=== PATIENT | female | born 1985 | race Caucasian/White ===

== ENCOUNTER 2023-11-01 07:34 | Outpatient (REF) | payer OTHER, SELFPAY ==
--- NOTE | ~2023-11-01 | MM_ITS ---
EXAMINATION: MM SCREENING DIGITAL BREAST TOMOSYNTHESIS, BILATERAL CLINICAL INFORMATION: Screening. Asymptomatic. COMPARISON: Mammography: This is a baseline mammogram. TECHNIQUE: Digital breast tomosynthesis is performed in both the craniocaudal and mediolateral oblique views along with computer-aided detection (CAD). Synthesized 2D images are generated from the tomosynthesis. FINDINGS: The breasts are heterogeneously dense, which may obscure small masses (ACR BI-RADS breast composition Category c). There are no significant masses, abnormal calcifications, or other abnormalities. MM/MM tomosynthesis screening BI IMPRESSION: No mammographic evidence of malignancy. ASSESSMENT: BI-RADS BI-RADS 1 - Negative RECOMMENDATION: Routine annual mammography screening. 1 year F/U This examination should not preclude the clinical evaluation of a suspicious palpable abnormality. This patient's information was entered into a reminder system with a target due date for their next mammogram.
== END 2023-11-01 07:35 | disposition home or self-care (01) ==
LOC: HO.MAMMO 07:34
PROVIDERS: PCP Obstetrics & Gynecology; Visit Provider Obstetrics & Gynecology
DX: Z12.31 Encounter for screening mammogram for malignant neoplasm of breast (principal)
CPT/HCPCS: 77063; 77067

== ENCOUNTER → 2023-11-01 07:45 | Outpatient (BNV) | payer OTHER, SELFPAY | PROVIDERS: PCP Obstetrics & Gynecology; Visit Provider Radiology Diagnostic Radiology | DX: Z12.31 Encounter for screening mammogram for malignant neoplasm of breast (principal) | CPT/HCPCS: 77063; 77067 ==

== ENCOUNTER 2023-12-04 07:01 | Outpatient (REF) | payer OTHER, SELFPAY ==
--- NOTE | ~2023-12-04 | XR_ITS ---
EXAMINATION: XR FOOT, RIGHT CLINICAL INFORMATION: Heel pain COMPARISON: None available. TECHNIQUE: AP, lateral, and oblique views of the right foot. FINDINGS: No fracture. Alignment is anatomic. Joint spaces are maintained. Plantar calcaneal spur. Tiny Achilles insertional enthesopathy. No erosions. No abnormal soft tissue calcification. XR/XR foot RT min 3V IMPRESSION: Calculus spurring. No radiographic evidence of acute osseous abnormality. Study is assigned for dictation on December 26, 2023
== END 2023-12-04 07:02 | disposition home or self-care (01) ==
LOC: HO.XRAY 07:01
PROVIDERS: Visit Provider Nurse Practitioner Family
DX: M79.671 Pain in right foot (principal)
CPT/HCPCS: 73630

== ENCOUNTER 2024-09-21 08:51 | Outpatient (AMB) | payer OTHER, SELFPAY ==
--- NOTE | 2024-09-21 08:57 | A.OFFVIS_ITS ---
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/ Tiffany/ palpitations (prev [facility]) Intake Note: New patient previous [facility] with ekg c/o palpitations on and off May-July was more often she has been having issue for years mostly at rest [employer] Se[employer] Manager Required: No Allergies erythromycin base [ERYTHROMYCIN BASE] Allergy (Unknown, Unverified 02/04/20 18:11) HIVES sulfamethoxazole [From BACTRIM] Adverse Reaction (Intermediate, Unverified 02/04/20 18:11) STOMACH UPSET trimethoprim [From BACTRIM] Adverse Reaction (Intermediate, Unverified 02/04/20 18:11) STOMACH UPSET Medication List - Last Reconciled 09/21/24 by Chivo Fink MD No Known Home Meds HPI Comments Details: Thank you for referring Darryl in cardiology consultation today for recent onset symptoms of palpitation. She is a pleasant 38 year old female with no significant past medical history except for syncope. She says syncope episode started about 15 years ago and would describe episode usually in the morning time when she would get up and do her routine in the morning and she will be standing she was suddenly feel not well and then feel like a black curtain carlosi javier and then she would pass out. A boyfriend would then noticed her to be very pale and cold. She was then be conscious right away and not have any symptoms. She had then at that time seen Cardiology at [facility] and no obvious diagnose was made but was told that she might have vasovagal syncope. She had an echocardiogram which was within normal limits. She had advise increase water and salt intake which she has been doing. Since that she has grown out of these episodes and she has not had any further syncopal episodes. More recently over the last few months she is having symptoms were happening frequently but over the last 3 weeks they have kind of subsided. She says the symptoms happening sometimes many times a week and then a week would pass without any symptoms. She will feel fluttering in his chest palpitations and then they would be sometimes continuous and she was feel lightheaded. One episode while shoveling snow she felt like she was going to pass out similar to vasovagal syncope but this past and she has not had any recurrent. She has been maintaining adequate hydration. She has gained some weight. However she says when she exercises she actually feels well and has no symptoms of palpitation lightheadedness or syncope when she was exercising. Denies any exertional chest pain or shortness of breath. Denies any recent new changes in her health. Denies any toim-dfo-lcpobky medications. Denies any recent increase in personal professional stress. Review of Systems Const Denies chills, Denies daytime sleepiness, Denies fatigue, Denies fever(s), Denies frequent falls, Denies poor appetite, Denies snoring, Denies stops breathing during sleep, Denies weakness, Denies weight gain and Denies weight loss Eyes Denies loss of vision ENT Denies dizziness and Denies hearing loss Card Reports chest pain, Denies claudication, Denies leg edema, Denies lightheadedness, Reports palpitations, Denies dyspnea, Denies dyspnea on exertion and Denies orthopnea Resp Denies cough, Denies excessive phlegm production, Denies dyspnea, Denies dyspnea on exertion, Denies snoring and Denies wheezing GI Denies abdominal pain, Denies hematochezia, Denies change in bowel habits, Denies nausea and Denies vomiting Denies urinary frequency and Denies dysuria Musc Denies arthralgias, Denies muscle weakness, Denies numbness and Denies other (frequent falls) Skin/Breast Denies nail changes and Denies rash Neuro Denies Abnormal speech present, Denies dizziness, Denies frequent falls, Denies loss of vision, Denies memory loss, Denies numbness and Denies weakness Psych Denies depression and Denies memory loss Endo Denies fatigue and Reports palpitations Martinez/Lymph Reports easy bruising and Reports other (anemia) Aller/Immun Denies wheezing Physical Exam Vital Signs: Last Vital Signs Pulse 87 09/21/24 09:18 BP 113/69 09/21/24 09:18 BMI result Body Mass Index 29.1 Const General: cooperative, comfortable, no acute distress, alert, awake, Physically active and well groomed Nutritional Appearance: overweight Orientation/consciousness: patient oriented x3 Limitations: no limitations HEENT Head: Yes normocephalic and Yes atraumatic Neck Neck: Yes trachea midline, Yes supple and Yes no JVD Resp Effort & Inspection: normal respiratory effort Auscultation: clear to auscultation bilaterally Cardio Jugular venous distension: no JVD Palpation: normal PMI Rate: regular rate Rhythm: regular rhythm Heart sounds: S1 normal heart sound present, S2 normal heart sound present, no click, no gallops, no murmurs and no rubs GI Auscultation: normal bowel sounds Skin General skin exam: no rashes or lesions noted Neuro General: patient oriented x3 and no focal motor deficits Speech: No Abnormal speech present Extrem General: Yes no clubbing, cyanosis or edema Psych Appearance: grossly normal Office Procedures EKG Details: EKG shows normal sinus rhythm normal EKG with normal axis and normal intervals 16092-Pjuljktejqcmhajtt, Complete Assessment & Plan Assessment & Plan (1) Palpitations: Code(s): R00.2 - Palpitations Category: Medical Plan: Patient with recent onset symptoms of palpitation which are most suggestive of extra systoles. Less likely that this represents SVT or short runs of atrial tachycardia uneven less likely that this is atrial fibrillation. However like to obtain a 30 day event monitor as her symptoms have become less frequent to assess for the symptoms as well as to assess for frequency. I would hold off on any pharmacotherapy at this point time. Avoidance of stimulants was discussed. Stress mitigation strategies were discussed. Will also obtain echocardiogram to assess for LV structure and function. (2) Syncope: Code(s): R55 - Syncope and collapse Category: Medical Plan: Prior history of syncope with recent episode of near-syncope while shoveling snow. Symptoms are suggestive of vasovagal syncope although this has not been ever confirmed. I will suggest a head-up tilt-table test to assess for etiology of syncope and/or also response with upright tilting that would guide therapy. This was discussed with her. Meanwhile I have advised her to continue maintain adequate hydration salt intake. Follow up in the clinic in 2 months time, sooner p.r.n.. Thank you for allowing me to partake in her care Coding Level of Care Code New Pt Level 4 (53594) Complex EM visit Add On G2211 Diagnoses Palpitations R00.2 Syncope R55 CPT Codes EKG - CPT: 27292-Eoqduimnmlspcqgni, Complete ([id number])
[2024-09-21 08:59] VITALS: BP 110/70; PULSE 78; BMI 29.1
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
--- OUTSIDE RECORDS SUMMARY | 2024-09-21 09:17 | XMS_ITS | Patient Health Record ---
Author Organization [facility] Address [address] [place] [address] Care Team Providers Care Saw Boss Name Role Phone VALERY MOREAU CNP Primary Care Provider TALISHA Mckenzie Unavailable [phone] Allergies Allergen (clinical drug ingredient) Drug/Non Drug Allergy documented on EMR Reaction Allergy Type Onset Date Status azithromycin Azithromycin hives Drug Allergy A ctive Results Component Value Reference Range Notes PDF Report Reviewed date:10/11/2023 08:51:57 AM Interpretation: Performing Lab:[facility], [address], [address], [place] Phone - [phone], [facility] Notes/Report: Clinical Information:CERVICAL, LMP: RANDOM BLEE DING WITH MIRENA IUD Source.............Cervix Dates / Results....2021 MIRENA, RANDOM BLEED ING Other..............IUD No. of containers..01 ThinPrep Vial 569700-Mls IGP No Culture 30 Plus Reviewed date:10/11/2023 08:50:45 AM Interpretation: Performing Lab:[facility], [address], [address], [place] Phone - [phone], Director [facility] Notes/Report: Clinical Information:CERVICAL, LMP: RANDOM BLEE DING WITH MIRENA IUD Source.............Cervix Dates / Results....2021 MIRENA, RANDOM BLEED ING Other..............IUD No. of containers..01 ThinPrep Vial DIAGNOSIS: NEGATIVE FOR IN TRAEPITHELIAL LESION OR MALIGNANCY. Specimen adequacy: Satisfactory for evaluation. Endocervical and/or squamous metaplastic cells (endocervical component) are present. Clinician provided ICD10: Z0 1.419 Performed by: John barrett, Immigration Specialist ([facility]) . . Note: The Pap smear is a screening test designed to aid in the detection of premalignant and malignant conditions of the uterine cervix. It is not a diagnostic procedure and should not be used as the sole means of detecting cervical cancer. Both false-positive and false-negative reports do occur. . Test Methodology: This liquid based ThinPrep(R) pap test was screened with the use of an image guided system. HPV Aptima Negative Negative This nucleic acid amplification test detects fourteen high-risk HPV types (16,18,31,33,35,39,45,51,52,56,58 ,59,66,68) without differentiation. HPV Genotype Reflex Criteria not met, HPV Genotype not performed. Reason For Referral No Information Medications Medication SIG (Take, Route, Frequency, Duration) [...] has it been since you last smoked? Grea ter than 10 years Problems Problem Type SNOMED Code ICD Code Onset Dates Problem Status W/U Status Risk Notes Problem COVID-19 ([id number]) COVID-19 (U07.1) Active confirmed Vital Signs Temperature 98.2 degrees Fahrenheit 06/12/2024 Blood pressure diastolic 64 mm Hg 06/12/2024 Height 64 in 06/12/2024 Blood pressure systolic 110 mm Hg 06/12/2024 Weight 166 lbs 06/12/2024 BMI 28.49 kg/m2 06/12/2024 Encounters Encounter Location Date [facility] [address] [place] [address] 10/07/2023 TALISHA OKEEFE Encounter for gynecological examination (general) (routine) without abnormal findings Z01.419 ; Encounter for screening mammogram for malignant neoplasm of breast Z12.31 and Presence of (intrauterine) contraceptive device Z97.5 [facility] [address] [place] [address] 06/12/2024 TALISHA OKEEFE Nonspecific low blood-pressure reading R03.1 [facility] [address] [place] [address] 06/11/2024 TALISHA OKEEFE Assessments Encounter Date Diagnosis (ICD Code) Assessment Notes Treatment Notes Treatment Clinical Notes Section Notes 10/07/2023 Encounter for gynecological examination (general) (routine) without abnormal findings (ICD-10 - Z01.419) Discussed cervical cancer screening with either cytology alone every 3 years or high risk HPV co-testing every 5 years as per ASCCP guidelines. Advised continued annual pelvic exams. Patient encouraged to increase her level of exercise. SBE technique encouraged/taug ht. Patient reminded when annual mammogram is due. 10/07/2023 Encounter for screening mammogram for malignant neoplasm of breast (ICD-10 - Z12.31) 06/12/2024 Nonspecific low blood-pressure reading (ICD-10 - R03.1) See PCP or consider endocrine evaluation. No gynecologic reason known by me to cause these symptoms. She is having regular menses. Encouraged to keep a journal of her symptoms. 10/07/2023 Presence of (intrauterine) contraceptive device (ICD-10 - Z97.5) Plan Of Treatment Pending Test Test Name Order Date MM Digital Screening Mammogram 3D 2023 Next Appt Details Provider Name:TALISHA Dodson, 10/09/2024 03:00:00 PM, [address], [place], [address], Insurance Providers Payer Name Payer Address Payer Phone Subscriber Number Group Number Insured Name Patient Relationship to Insured Coverage Start Date Coverage End Date [employer] [place] [address] [address] [place] [address] [id number] KUMAR GONSALVES Self - patient is the insured 3 Medical (General) History Medical History History ICD Code COVID-19 U07.1 Surgical History Surgery Date(Month/Year) [place] teeth extraction 2006 Hospitalization History Reason Date(Month/Year) Childbirth
[2024-09-21 09:18] VITALS: BP 112/62; BP 113/69; BP 118/68; PULSE 84; PULSE 87
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
--- OUTSIDE RECORDS SUMMARY | 2024-09-21 09:18 | XMS_ITS ---
Author Organization [facility] Address [address] [place] [address] Care Team Providers Care Turbine Operator Name Role Phone VALERY MOREAU CNP Primary Care Provider TALISHA Mckenzie Unavailable [phone] REASON FOR VISIT Appointment Request Encounters Encounter Location Date Provider Diagnosis [facility] [address] [address] 06/11/2024 TALISHA OKEEFE Plan Of Treatment Next Appt Details Provider Name:TALISHA Dodson, 10/09/2024 03:00:00 PM, [address], [place], [address], Progress Notes * TANYASHAYNA VargasSANTAOB:1985 (38 yo F)Acc No.[id number]:06/11/2024 Patient:?KUMAR GONSALVES :1985???Age:38 Y???Sex:Female Address:[address] [place] [address], [address] * true * Date:? Generated for Printi ng/Fasulyg/eTransmitting on:?09/21/2024 09:17 AM EDT
== END 2024-09-21 09:40 | disposition home or self-care (01) ==
LOC: HO.HCS 08:51
PROVIDERS: PCP Nurse Practitioner Family; Visit Provider Internal Medicine Cardiovascular Disease
DX: R00.2 Palpitations (principal); R55 Syncope and collapse
CPT/HCPCS: 93010; 99204

== ENCOUNTER → 2024-09-21 08:51 | Outpatient (BNVA) | payer OTHER, SELFPAY | PROVIDERS: PCP Nurse Practitioner Family; Visit Provider Internal Medicine Cardiovascular Disease | DX: R00.2 Palpitations (principal); R55 Syncope and collapse | CPT/HCPCS: 93005 ==

== ENCOUNTER → 2024-10-21 09:47 | Outpatient (REF) | payer OTHER, SELFPAY ==
--- NOTE | 2024-10-21 09:51 | CA_ITS ---
Transthoracic Echocardiogram Patient (Last, First, Middle): Darryl Macedo, Gender: Female Date of : 1985 Age: 39 Procedure Date: 10/21/2024 Procedure Type: Transthoracic Echocardiogram Location: OP Height: 165.1 cm Weight: 74.84 kg BSA: 1.82 m2 Heart Rate: bpm BP: 102 / 70 mmHg Real Estate Site Analyst: TO Referring MD: Chivo Fink MD Symptoms: R00.2 - Palpitations Study Quality: Adequate w contrast ECG Rhythm: Sinus Conclusions: - The left ventricular systolic function is normal. The calculated ejection fraction is 59% by biplane method. - No obvious valvular pathology seen on this study. Findings Procedure Information Contrast agent, definity, is being given per protocol without apparent complications. Left Ventricle Normal left ventricular cavity size. There is normal left ventricular wall thickness. The left ventricular systolic function is normal. The calculated ejection fraction is 59% by biplane method. There is no evidence of regional wall motion abnormalities. Diastolic function is normal for age. Right Ventricle Normal right ventricular cavity size and systolic function. Atria Both atria are normal in size. Aortic Valve There is a normal trileaflet aortic valve. There is no aortic valve stenosis. There is no aortic valve regurgitation. Mitral Valve The mitral valve appears normal. There is no mitral valve regurgitation. There is no mitral valve stenosis. Pulmonic Valve The pulmonic valve is likely normal. Tricuspid Valve There is trace tricuspid valve regurgitation. There is no evidence of pulmonary hypertension. Great Vessels The asc aorta is normal in size. Venous The inferior vena cava is normal in size and collapses greater than 50% with inspiration. Pericardium/Pleural There is no evidence of pericardial effusion. Prior Study Comparison No prior study available for comparison. Recommendations, Care & Conclusions No obvious valvular pathology seen on this study. Measurements 2D Linear Measurements IVSd: 0.76 0.6-0.9/0.6-1.0 cm LVIDd: 4.95 3.9-5.3/4.2-5.9 cm LVIDd Index: 2.72 2.4-3.2/2.2-3.1 cm/m2 LVIDs: 3.14 2.0-3.6 cm LVPWd: 0.81 0.7-1.1 cm LA Diam: 3.40 2.7-3.8/3.0-4.0 cm LAIDs Index: 1.87 1.5-2.3 cm/m2 LV Mass: 162.51 67-162/88-224 g LV Mass Index: 89.29 43-95/49-115 g/m2 LVOT Diam: 2.00 3.0+(-)1.3 cm 2D Systolic Function EF 4C: 55.50 >55% EF 2C: 62.30 >55% EF BiP: 59.40 >55% Mitral Valve MV Pk E: 0.60 MV PK A: 0.44 MV Decel Time: 212.00 E/A: 1.40 E'Lateral: 12.30 E'Medial: 8.27 E/E' Med: 7.30 E/E' Lat: 4.90 PHT: 62.00 MVA PHT: 3.55 Decel Meade: 2.85 Aortic Valve AoV Pk Syed: 1.43 AoV Mn Syed: 1.04 AoV VTI: 0.30 AoV Pk Grad: 8.00 Aov Mn Grad: 5.00 MORENA Cont.VTI: 2.75 LVOT LVOT Pk Syed: 1.32 LVOT Mn Syed: 0.85 LVOT VTI: 0.27 LVOT Pk Grad: 7.00 LVOT Mn Grad: 3.00 LVOT Diam: 2.00 LVOT Area: 3.14 Diastolic Function MV Pk E: 0.60 MV Pk A: 0.44 E/A: 1.40 E'Medial: 8.27 E/E' Med: 7.30 E' Laterial: 12.30 E/E' Lat: 4.90 Right Ventricle TAPSE (mm): 25.40 TVS' Syed: 13.90 Tricuspid Valve RA Press: 3.00 Great Vessels Aorta Sinus of Valsalva: 2.73 2.0-3.[address] [place]: 2.33 1.7-3.4 cm Ao Asc: 2.80 2.1-3.4 cm Updated in Other Vendor System with Status of Final Víctor Johnson MD electronically signed on 10/22/2024 3:47:23 PM with status of Final
--- OUTSIDE RECORDS SUMMARY | 2024-10-21 10:20 | XMS_ITS | Clinical Summary ---
Author Organization [facility] Address [address] [place] [address] Phone Care Team Providers Care Chemical Operations And Training Name Role Phone Unavailable Primary Care Provider Unavailabl e Social History Tobacco Use Types Packs/Day Years Used Date Smoking Tobacco: Never Assessed Comments Unknown Sex and Gender Information Value Date Recorded Sex Assigned at Not on file Legal Sex Female 8:47 AM EDT Gender Identity Not on file Sexual Orientation Not on file Plan of Treatment Upcoming Encounters Date Type Department Care Team (Late st Contact Info) Description 11/24/2024 2:30 PM EDT Appointment [facility] [address] [place] [address] Health Maintenance Due Date Last Done Comments Breast Cancer Screening 1985 DTaP,Tdap,and Td Vaccines (1 - Tdap) 10/15/2002 Hepatitis B Vaccines (1 of 3 - 19+ 3-dose series) 10/15/2002 Cervical Cancer Screening: P ap Smear 10/15/2004 COVID-19 Vaccine ( - 2023-2 5 season) 2024 Depression Screening 09/22/2024 HIV Screening 09/22/2024 Hepatitis C Screening 09/22/2024 Social Influencers of Health Screening 09/22/2024 Influenza Vaccine (Season Ended) 2025 HIB Vaccines Aged Out No longer eligi ble based on patient's age to complete this topic HPV Vaccines Aged Out No longer eligi ble based on patient's age to complete this topic Hepatitis A Vaccines Aged Out No long er eligible based on patient's age to complete this topic IPV Vaccines Aged Out No longer eligi ble based on patient's age to complete this topic MMR Vaccines Aged Out No longer eligi ble based on patient's age to complete this topic Meningococcal ACWY Vaccine Aged Out N o longer eligible based on patient's age to complete this topic Meningococcal B Vaccine Aged Out No l onger eligible based on patient's age to complete this topic Pneumococcal Vaccine: Pediat rics (0 to 5 Years) and At-Risk Patients (6 to 64 Years) Aged Out No longer eligible b ased on patient's age to complete this topic RSV Immunization Patients Un shaneka 20 months Aged Out No longer eligible b ased on patient's age to complete this topic Varicella Vaccines Aged Out No longer eligible based on patient's age to complete this topic
== END ==
LOC: HO.CARD 09:47
PROVIDERS: PCP Nurse Practitioner Family; Visit Provider Internal Medicine Cardiovascular Disease
DX: R00.2 Palpitations (principal)
CPT/HCPCS: 93270; 93306; Q9957

== ENCOUNTER → 2024-10-21 09:51 | Outpatient (BNV) | payer OTHER, SELFPAY | PROVIDERS: PCP Nurse Practitioner Family; Visit Provider Internal Medicine | DX: R00.2 Palpitations (principal) | CPT/HCPCS: 93306 ==

== ENCOUNTER 2024-11-11 07:49 | Outpatient (REF) | payer OTHER, SELFPAY ==
--- NOTE | ~2024-11-11 | MM_ITS ---
EXAMINATION: MM SCREENING DIGITAL BREAST TOMOSYNTHESIS, BILATERAL CLINICAL INFORMATION: Screening. Asymptomatic. COMPARISON: Mammography: Comparison is made with available priors TECHNIQUE: Digital breast mammography with tomosynthesis is performed in both the craniocaudal and mediolateral oblique views along with computer-aided detection (CAD). FINDINGS: The breasts are heterogeneously dense, which may obscure small masses (ACR BI-RADS breast composition Category c). There are no significant masses, abnormal calcifications, or other abnormalities. MM/MM tomosynthesis screening BI IMPRESSION: No mammographic evidence of malignancy. ASSESSMENT: BI-RADS BI-RADS 1 - Negative RECOMMENDATION: Routine annual mammography screening. 1 year F/U This examination should not preclude the clinical evaluation of a suspicious palpable abnormality. This patient's information was entered into a reminder system with a target due date for their next mammogram. Electronically signed by: Karla Cardozo DO 11/11/2024 11:35 AM EDT
--- OUTSIDE RECORDS SUMMARY | 2024-11-11 07:52 | XMS_ITS | Clinical Summary ---
Author Organization [facility] Address [address] [place] [address] Phone Care Team Providers Care Jogger Operator Name Role Phone Unavailable Primary Care Provider [...] Info) Description 11/24/2024 2:30 PM EDT Appointment [facility] Xray [address] [place] [address] Health Maintenance Due Date Last [...] on patient's age to complete this topic Insurance [address] [address] BENEFIT [facility]
== END 2024-11-11 07:50 | disposition home or self-care (01) ==
LOC: HO.MAMMO 07:49
PROVIDERS: PCP Nurse Practitioner Family; Visit Provider Obstetrics & Gynecology
DX: Z12.31 Encounter for screening mammogram for malignant neoplasm of breast (principal)
CPT/HCPCS: 77063; 77067

== ENCOUNTER → 2024-11-11 08:00 | Outpatient (BNV) | payer OTHER, SELFPAY | PROVIDERS: PCP Nurse Practitioner Family; Visit Provider Internal Medicine | DX: Z12.31 Encounter for screening mammogram for malignant neoplasm of breast (principal) | CPT/HCPCS: 77063; 77067 ==

== ENCOUNTER 2024-12-14 13:48 | Outpatient (AMB) | payer OTHER, SELFPAY ==
[2024-12-14 14:22] VITALS: BP 122/74; PULSE 88; BMI 28.7
--- NOTE | 2024-12-14 14:22 | MHC.OFFVIS ---
Vital Signs 12/14/24 14:22 Height 5 ft 4.5 in Weight 169 lb 12.095 oz BMI 28.7 BP 122/74 Blood Pressure Location Lt brachial Position Sitting Pulse 88 Intake Visit Reasons: 2m/echo/event monitor/tilt Intake Note: 2 month follow-up after echo, tilt and tramaine feeling good Intensive Care Specialist Required: No Allergies erythromycin base (ERYTHROMYCIN BASE) Allergy (Unknown, Unverified 02/04/20 18:11) HIVES sulfamethoxazole (From BACTRIM) Adverse Reaction (Intermediate, Unverified 02/04/20 18:11) STOMACH UPSET trimethoprim (From BACTRIM) Adverse Reaction (Intermediate, Unverified 02/04/20 18:11) STOMACH UPSET Medication List - Last Reconciled 12/14/24 by Chivo Fink MD No Known Home Meds HPI Comments Details: Darryl comes for follow-up. She has had no recurrent C episodes. He continues to have occasional fast heart rate. Tilt-table test was suggestive of some orthostatic tachycardia after nitroglycerin. Event monitor shows frequent sinus tachycardia. Since increasing her fluid and salt intake her fast heart rate episodes have decreased. She is overall feeling quite well. Review of Systems Const Denies chills, Denies fatigue, Denies fever(s), Denies frequent falls, Denies weakness, Denies weight gain and Denies weight loss ENT Denies dizziness Card Denies chest pain, Denies leg edema, Denies lightheadedness, Denies palpitations, Denies dyspnea, Denies dyspnea on exertion, Denies orthopnea and Denies other (loss of consciousness) Resp Denies cough, Denies dyspnea and Denies dyspnea on exertion GI Denies hematochezia and Denies change in stool character Musc Denies abnormal gait, Denies muscle weakness, Denies numbness, Denies radiating pain into limb and Denies tingling Neuro Denies Abnormal speech present, Denies abnormal gait, Denies dizziness, Denies frequent falls, Denies numbness, Denies tingling and Denies weakness Endo Denies fatigue and Denies palpitations Physical Exam Vital Signs: Last Vital Signs Pulse 88 12/14/24 14:22 BP 122/74 12/14/24 14:22 BMI result Body Mass Index 28.7 Const General: cooperative, comfortable, no acute distress, alert, awake, Physically active and well groomed Nutritional Appearance: overweight Orientation/consciousness: patient oriented x3 Limitations: no limitations HEENT Head: Yes normocephalic and Yes atraumatic Neck Neck: Yes trachea midline, Yes supple and Yes no JVD Resp Effort & Inspection: normal respiratory effort Auscultation: clear to auscultation bilaterally Cardio Jugular venous distension: no JVD Palpation: normal PMI Rate: regular rate Rhythm: regular rhythm Heart sounds: S1 normal heart sound present, S2 normal heart sound present, no click, no gallops, no murmurs and no rubs GI Auscultation: normal bowel sounds Skin General skin exam: no rashes or lesions noted Neuro General: patient oriented x3 and no focal motor deficits Speech: No Abnormal speech present Extrem General: Yes no clubbing, cyanosis or edema Psych Appearance: grossly normal Assessment & Plan Assessment & Plan (1) Syncope: Code(s): R55 - Syncope and collapse Category: Medical Plan: Syncopal episode with normal structure of the heart with findings overall most suggestive of postural orthostatic tachycardia syndrome. Mild degree. She does not have significant symptoms since increasing her fluid and salt intake. Mechanism was discussed in details. No other pharmacotherapy is indicated. Encouraged to increase activity level as tolerated. Orthostatic precautions were discussed. She understands well. Will follow up in the clinic if need be. Thank you for allowing me to partake in her care Coding Level of Care Code Est Pt Level 3 (75173) Complex EM visit Add On G2211 Diagnoses Syncope R55
--- OUTSIDE RECORDS SUMMARY | 2024-12-14 14:28 | XMS_ITS | Encounter Summary ---
Author Organization [facility] Address [address] [address] Phone Care Team Providers Care Hand Developer Name Role Phone Marily Elkins DOUBLER HELPER Unavailable [phone] Iris Chamberlain MD Unavailable Gilma Cornelius DO Unavailable Erlin Pennington MD Unavailable [phone] Miriam Valladares MD Unavailable [phone] Artie Mayorga CNP Unavailable Erlin Pennington MD Primary Care Provider [phone] Encounter Details Date Type Department Care Team (Latest Contact Info) Description 04/21/2018 Ancillary Orders Virtual Department [address] [place] [address] Gokul Stevens MD [address] [place] [id number] [email or web address] Chronic pancreatitis, unspecified pancreatitis type Social History Tobacco Use Types Packs/Day Years Used Date Smoking Tobacco: Former Cigarettes 0.5 4 2 001 - 2005 Smokeless Tobacco: Never Alcohol Use Standard Drinks/Week Comments No 0 (1 standard drink = 0.6 oz pur e alcohol) Comments Unknown Sex and Gender Information Value Date Recorded Sex Assigned at Female 03/15/2021 2:40 PM EDT Legal Sex Female 9:16 PM EDT Gender Identity Not on file Sexual Orientation Not on file documented as of this encounter Plan of Treatment Not on file documented as of this encounter Results * US ABDOMEN LIMITED RIGHT UPPER QUADRANT (05/14/2018 11:30 AM EST) Anatomical Region Laterality Modality Abdomen Ultrasound 05/14/2018 12:0 6 PM EST Impressions 05/14/2018 12:10 PM EST 1. No gallstones. No biliary ductal dilatation. 2. No peripancreatic fluid collections. Normal ultrasound appearance of the pancreas. 3. Benign 1.0 cm cyst in the right lobe of the liver. POS - [id number] Narrative 05/14/2018 12:10 PM EST US ABDOMEN LIMITED RIGHT UPPER QUADRANT HISTORY: PANCREATITIS / RUQ COMPARISON: None. TECHNIQUE: Limited abdominal ultrasound was performed of the right upper quadrant. FINDINGS: Liver: Normal echogenicity and echotexture of the liver. Smooth liver surface. In the right lobe of the liver near the right hepatic vein there is an anechoic simple cyst 0.9 x 0.7 x 1.0 cm. No solid liver masses. Gallbladder: No shadowing gallstones. No gallbladder wall thickening or pericholecystic fluid. Negative sonographic Becker sign. Biliary tree: No intrahepatic or extrahepatic biliary ductal dilatation. The common duct at the danielle hepatis measures 3.1 mm, normal value. Pancreas: Sonographically normal. No mass or peripancreatic fluid collection. Right kidney: Survey imaging shows normal cortical echogenicity. No hydronephrosis. Other: No ascites in the right upper quadrant. Procedure Note Michelle Colón MD - 05/14/2018 US ABDOMEN LIMITED RIGHT UPPER QUADRANT HISTORY: PANCREATITIS / RUQ COMPARISON: None. TECHNIQUE: Limited abdominal ultrasound was performed of the right upperadrant. FINDINGS: Liver: Normal echogenicity and echotexture of the liver. Smooth liversurface. In the right lobe of the liver near the right hepatic vein thereis an anechoic simple cyst 0.9 x 0.7 x 1.0 cm. No solid liver masses. Gallbladder: No shadowing gallstones. No gallbladder wall thickening orpericholecystic fluid. Negative sonographic Becekr sign. Biliary tree: No intrahepatic or extrahepatic biliary ductal dilatation.The common duct at the danielle hepatis measures 3.1 mm, normal value. Pancreas: Sonographically normal. No mass or peripancreatic fluidcollection. Right kidney: Survey imaging shows normal cortical echogenicity. Nohydronephrosis. Other: No ascites in the right upper quadrant. IMPRESSION: 1. No gallstones. No biliary ductal dilatation. 2. No peripancreatic fluid collections. Normal ultrasound appearance ofthe pancreas. 3. Benign 1.0 cm cyst in the right lobe of the liver. POS - [id number] us Gokul Stevens MD IMG US ABDOMEN Final Result documented in this encounter Visit Diagnoses Diagnosis Chronic pancreatitis, unspecified pancreatitis type Chronic pancreatitis, unspecified pancreatitis type documented in this encounter Additional Health Concerns Infection Onset Date Last Indicated Resolved Time CoV-Exposed Comment:Recent close contact 05/30/2020 05/30/2020 06/13/2020 1:24 AM EST CoV-Presumed 10/01/2021 10/01/2021 10/22/2021 1:21 AM EDT documented as of this encounter Care Teams Hand Developer Relationship Specialty Start Date End Date Erlin Pennington MD [address] [place] [address], [address] [place] [address] PCP - General 03/05/17 09/24/24 Marily Elkins NP [address] [place] [address] Historical LMR Provider 03/04/17 05/27/21 Iris Chamberlain MD [address] [place] [address], [address] [place] [address] Historical LMR Provider 03/04/17 05/27/21 Gilma Cornelius DO [address] [place] [address] Historical LMR Provider 03/04/17 2 Erlin Pennington MD [address] [facility], [address] [place] [address] Historical LMR Provider 03/04/17 5 Miriam Valladares MD [address] [place] [address] Historical LMR Provider 03/04/17 2 Artie Mayorga CNP [address] [facility], [address] [place] [address] [email or web address] Historical LMR Provider 03/04/17 documented as of this encounter Additional Source Comments The information contained in this document represents components of the legal health record. It is not the complete legal health record.[facility]
--- OUTSIDE RECORDS SUMMARY | 2024-12-14 14:28 | XMS_ITS | Clinical Summary ---
Author Organization [facility] Address [address] [place] [address] Phone Care Team Providers Care Locum Tenens Hospitalist Name Role Phone Tiffany Daria TUTTLE Primary Care Provider Encounters Date Type Department Care Team Description 11/24/2024 2:09 PM EDT - 11/24/2024 11:59 PM EDT Hospital Encounter [facility] Xray [address] [place] [address] Syncope and collapse Discharge Disposition: Home or Self Care from Last 3 Months Social History Tobacco Use Types Packs/Day Years Used Date Smoking Tobacco: Never Assessed Comments Unknown Sex and Gender Information Value Date Recorded Sex Assigned at Female 11/23/2024 2:09 PM EDT Legal Sex Female 8:47 AM EDT Gender Identity Female 11/23/2024 2:09 PM EDT Sexual Orientation Not on file Plan of Treatment Health Maintenance Due Date Last Done Comments Breast Cancer Screening 1983 Hepatitis B Vaccines (1 of 3 - 19+ 3-dose series) 10/15/2002 Cervical Cancer Screening: Pap Smear 10/15/2004 Pneumococcal Vaccine: Pediatrics (0 to 5 Years) and At-Risk Patients (6 to 49 Years) (2 of 2 - PCV) 05/06/2007 05/06/2006 COVID-19 Vaccine ( season) 2024 05/06/2021, 07/08/2020, 06/03/2020 Depression Screening 05/20/2024 HIV Screening 09/22/2024 Hepatitis C Screening 09/22/2024 Social Influencers of Health Screening 09/22/2024 Influenza Vaccine (#1) 2025 3, 04/15/2022, 03/06/2021, Additional history exists DTaP,Tdap,and Td Vaccines (3 - Td or Tdap) 06/26/2029 06/26/2019, 05/24/2011 MMR Vaccines Aged Out 02/14/2023 No longer eligi ble based on patient's age to complete this topic HIB Vaccines Aged Out No longer eligi [...] to complete this topic RSV Immunization Patients Under 20 months Aged Out No longer eligible based on patient's age to complete this topic Varicella Vaccines Aged Out No longer eligible based on patient's age to complete this topic Procedures Procedure Name Priority Date/Time Associated Diagnosis Comments TILT TABLE Routine 11/24/2024 2:43 PM EDT Syncope and collapse from Last 3 Months Results * Tilt table (11/24/2024 2:43 PM EDT) Anatomical Region Laterality Modality Radiographic Mami ging Narrative 11/24/2024 4:07 PM EDT Pt became bradycardic 6 min after ntg but BP remained 120's sys. Symptoms today unlike at home symptoms. Pt having vertigo today which is unlike her other at home symptoms.. Vertigo is not unusual for her. Tilt Table The patient was brought to lab in fasting state. Baseline ECG showed normal sinus rhythm. Baseline supine minimum BP: 108/52 mmHg Baseline supine minimum HR: 72 bpm Patient tilted to 70 degrees. Tilt maintained for 20 minutes. Minimum BP during tilt: 118/72 mmHg Maximum BP during tilt: 131/86 mmHg Minimum heart rate during tilt: 79 bpm Maximum heart rate during tilt: 93 bpm Rhythm during tilt: normal sinus rhythm There was a clear orthostatic response not noted. Patient experienced an exaggerated HR increase with tilt. No symptoms reported. Premonitory symptoms were not reproduced. Syncope/presyncope symptoms were not reproduced. Nitroglycerin was given during the test. Tilt maintained under nitroglycerin for 6 minutes. Minimum BP under nitroglycerin: 116/82 Maximum BP under nitroglycerin: 135/82 Minimum HR under nitroglycerin: 56 Maximum HR under nitroglycerin: 118 Rhythm after nitroglycerin administration was normal sinus rhythm. There was a clear orthostatic response not noted. Patient experienced a physiologic HR increase with nitroglycerin. Symptoms seen after the nitroglycerin dose include: nausea. Premonitory symptoms were not reproduced. Syncope/presyncope symptoms were not reproduced. Conclusion: Negative tilt test. Chivo Fink MD [facility] PROCEDURES F inal Result from Last 3 Months Insurance [employer] [facility] [place] [address] Care Teams Locum Tenens Hospitalist Relationship Specialty Start Date End Date Daria Allen FNP [address] [place] [phone] PCP - General Internal Medicine 11/24/24
--- OUTSIDE RECORDS SUMMARY | 2024-12-14 14:28 | XMS_ITS | Patient Health Record ---
Author Organization [facility] Address [address] [place] [address] [address] [place] [address] Care Team Providers Care Rubber Down Name Role Phone VALERY MOREAU CNP Primary Care Provider TALISHA Mckenzie Unavailable [phone] Allergies Allergen (clinical drug ingredient) Drug/Non Drug Allergy documented on EMR Reaction Allergy Type Onset Date Status azithromycin Azithromycin hives Drug Allergy A ctive Reason For Referral No Information Medications Medication SIG (Take, Route, Frequency, Duration) Notes Start Date End Date Status Mirena (52 MG) 20 MCG/DAY as directed Intrauterine inserted 12/29/20 Active Social History Tobacco Use: Social History Observation Description Date Details (start date - stop date) Former Smoker NA - NA AUDIT-C (Standard) Question Answer Notes Did you have a drink contain ing alcohol in the past year? Yes How often did you have a dri nk containing alcohol in the past year? 2 to 4 times a month (2 points) How many drinks did you have on a typical day when you were drinking in the past year? 1 or 2 drinks (0 point) How often did you have six o r more drinks on one occasion in the past year? Never (0 point) Points 2 Interpretation Negative Tobacco Control (Standard) Question Answer Notes Tobacco use: Former smoker How long has it been since you last smoked? Grea ter than 10 years Problems Problem Type SNOMED Code ICD Code Onset Dates Problem Status W/U Status Risk Notes Problem COVID-19 (324917847) COVID-19 (U07.1) Active confirmed Vital Signs Temperature 98.0 degrees Fahrenheit 10/09/2024 Blood pressure diastolic 74 mm Hg 10/09/2024 Height 64 in 10/09/2024 Blood pressure systolic 110 mm Hg 10/09/2024 Weight 169 lbs 10/09/2024 BMI 29.01 kg/m2 10/09/2024 Encounters Encounter Location Date Provider Diagnosis [facility] [email or web address] [place] [address] 06/12/2024 TALISHA SEGURAS Nonspecific low blood-pressure reading R03.1 [facility] [address] [facility] [address] [place] [address] 10/09/2024 TALISHA OKEEFE Encounter for gynecological examination (general) (routine) without abnormal findings Z01.419 ; Encounter for screening mammogram for malignant neoplasm of breast Z12.31 and Presence of (intrauterine) contraceptive device Z97.5 [facility] [email or web address] [place] [address] 06/11/2024 TALISHA OKEEFE Assessments Encounter Date Diagnosis (ICD Code) Assessment Notes Treatment Notes Treatment Clinical Notes Section Notes 06/12/2024 Nonspecific low blood-pressure reading (ICD-10 - R03.1) See PCP or consider endocrine evaluation. No gynecologic reason known by me to cause these symptoms. She is having regular menses. Encouraged to keep a journal of her symptoms. 10/09/2024 Encounter for gynecological examination (general) (routine) without abnormal findings (ICD-10 - Z01.419) Discussed cervical cancer screening with either cytology alone every 3 years or high risk HPV co-testing every 5 years as per ASCCP guidelines. Advised continued annual pelvic exams. Patient encouraged to increase her level of exercise. SBE technique encouraged/taug ht. Patient reminded when annual mammogram is due. 10/09/2024 Encounter for screening mammogram for malignant neoplasm of breast (ICD-10 - Z12.31) 10/09/2024 Presence of (intrauterine) contraceptive device (ICD-10 - Z97.5) Continue Mirena until 12/2028. She requests changing it out at 5 yrs, as she feels cramping returning near the end of the 5yrs. Plan Of Treatment Pending Test Test Name Order Date MM Digital Screening Mammogram 3D 2023 MM Digital Screening Mammogram 3D 2024 Next Appt Details Provider Name:TALISHA Dodson, 10/15/2025 03:00:00 PM, [email or web address], [address], [place], [address], Insurance Providers Payer Name Payer Address Payer Phone Subscriber Number Group Number Insured Name Patient Relationship to Insured Coverage Start Date Coverage End Date [employer] [place] [address] [address] [place] [address] [id number] KUMAR GONSALVES Self - patient is the insured 3 Medical (General) History Medical History History ICD Code COVID-19 U07.1 Surgical History Surgery Date(Month/Year) [place] teeth extraction 2006 Hospitalization History Reason Date(Month/Year) Childbirth
== END 2024-12-14 16:28 | disposition home or self-care (01) ==
LOC: HO.HCS 13:48
PROVIDERS: PCP Nurse Practitioner Family; Visit Provider Internal Medicine Cardiovascular Disease
DX: R55 Syncope and collapse (principal)
CPT/HCPCS: 99213

== ENCOUNTER 2025-01-12 09:53 | Outpatient (RCR) | payer OTHER, SELFPAY ==
[2025-01-11 14:06] VITALS: BP 116/76; PULSE 78
== END 2025-02-15 07:10 | disposition home or self-care (01) ==
LOC: HO.PT 09:53
PROVIDERS: PCP Nurse Practitioner Family; Visit Provider Nurse Practitioner Family
DX: H81.12 Benign paroxysmal vertigo, left ear (principal)
CPT/HCPCS: 95992; 97161; 97535

== ENCOUNTER 2025-01-13 13:44 | Outpatient (REF) | payer OTHER, SELFPAY ==
--- NOTE | ~2025-01-13 | XR_ITS ---
EXAMINATION: XR FOOT, LEFT CLINICAL INFORMATION: PAIN COMPARISON: None available. TECHNIQUE: AP, lateral, and oblique views of the left foot. FINDINGS: Incidental note is made of a short third digit of the left foot. No acute fractures are identified. No degenerative changes are evident. There is a small calcaneal spur at the plantar fascial attachment. XR/XR foot LT min 3V IMPRESSION: Essentially unremarkable left foot. Electronically signed by: Saurav Lock MD 01/13/2025 02:18 PM EDT
--- NOTE | ~2025-01-13 | XR_ITS ---
EXAMINATION: XR FOOT, RIGHT CLINICAL INFORMATION: PAIN COMPARISON: None available. TECHNIQUE: AP, lateral, and oblique views of the right foot. FINDINGS: There are no degenerative changes. No fractures are identified. There is no joint malalignment. There is a small plantar calcaneal spur. XR/XR foot RT min 3V IMPRESSION: There is a small plantar calcaneal spur, a nonspecific finding. Electronically signed by: Saurav Lock MD 01/13/2025 02:18 PM EDT
--- OUTSIDE RECORDS SUMMARY | 2025-01-13 14:34 | XMS_ITS | Encounter Summary ---
Author Organization [facility] Address [facility] [employer] [address] [address] Phone Care Team Providers Care Shipping Team Leader Name Role Phone Marily Elkins TSA SCREENER Unavailable [phone] Iris Chamberlain MD Unavailable Gilma Cornelius DO Unavailable [phone] Erlin Pennington MD Unavailable [phone] Miriam Valladares MD Unavailable [phone] Artie Mayorga CNP Unavailable [phone] Erlin Pennington MD Primary Care Provider [phone] Encounter Details Date Type Department Care Team (Latest Contact Info) Description 01/28/2020 Transcribe Orders [facility] [address] [place], [place] [id number] Manjinder Staples MD [address] [facility] [address] [place] [address] [email or web address] Chronic pancreatitis, unspecified pancreatitis type (Primary Dx) Social History Tobacco Use Types Packs/Day Years Used Date Smoking Tobacco: Former Cigarettes 0.5 4 2 001 - 2005 Smokeless Tobacco: Never Alcohol Use Standard Drinks/Week Comments No 0 (1 standard drink = 0.6 oz pur e alcohol) Comments No Sex and Gender Information Value Date Recorded Sex Assigned at Female 03/15/2021 2:40 PM EDT Legal Sex Female 9:16 PM EDT Gender Identity Not on file Sexual Orientation Not on file documented as of this encounter Plan of Treatment Not on file documented as of this encounter Results * C-Reactive Protein (01/28/2020 2:03 PM EDT) C REACTIVE PROTEIN <0.3 0.0 - 4.0 mg/L [facility] Blood 01/28/2020 2:03 PM EDT 01/28/2020 2:07 PM EDT us Manjinder Staples MD LAB BLOOD ORDERABLES Final R esult [facility] [address] [place] [address] * Comprehensive metabolic panel (01/28/2020 2:03 PM EDT) SODIUM 138 133 - 146 mmol/L [facility] POTASSIUM 4.3 3.3 - 5.1 mmol/L [facility] CHLORIDE 104 96 - 108 mmol/L [facility] CO2 24 21 - 35 mmol/L [facility] BUN 13 6 - 19 mg/dL [facility] CREATININE 0.70 0.5 - 1.5 mg/dL [facility] GLUCOSE 95 70 - 99 mg/dL [facility] ALBUMIN 4.3 3.9 - 4.8 g/dL [facility] TOTAL PROTEIN 7.1 6.5 - 8.0 g/dL [facility] CALCIUM 9.3 8.4 - 10.3 mg/dL [facility] ALKALINE PHOSPHATASE 50 39 - 117 U/L [facility] TOTAL BILIRUBIN 0.3 0.0 - 1.2 mg/dL [facility] AST 29 0 - 37 U/L [facility] ALT 13 0 - 40 U/L [facility] GLOBULIN 2.8 1 - 4.8 g/dL [facility] EGFR 111 >59 mL/min/1.7 3m2 [facility] Comment:Estimated glomerular filtration rate calculated using the CKD-EPI equation. ANION GAP 14 10 - 20 mmol/L [facility] Blood 01/28/2020 2:03 PM EDT 01/28/2020 2:07 PM EDT us Manjinder Staples MD LAB BLOOD ORDERABLES Final R esult [address] [address] * CBC (01/28/2020 2:03 PM EDT) WBC 5.52 4.00 - 11.00 K/uL [facility] Comment:Note Reference Range updates to all CBC and Differential results. RBC 4.67 3.72 - 5.30 M/uL [facility] HGB 14.9 10.6 - 15.5 g/dL [facility] Comment:Note updated Referen ce Ranges for all CBC and Differential results. HCT 44.2 32.0 - 45.0 % [facility] PLT 252 140 - 430 K/uL [facility] MCV 94.6 78.0 - 97.0 fL [facility] MCH 31.9 25.0 - 33.0 pg [facility] MCHC 33.7 32.0 - 36.0 g/dL [facility] RDW 12.3 11.0 - 16.0 % [facility] MPV 10.6 8.4 - 12.8 fl [facility] NRBC 0.00 0 /100 WBCs [facility] ABSOLUTE NRBC 0.00 0 K/uL [facility] Blood 01/28/2020 2:0 3 PM EDT 01/28/2020 2:07 PM EDT us Manjinder Staples MD LAB BLOOD ORDERABLES Final R esult [address] [address] * Lipase (01/28/2020 2:03 PM EDT) LIPASE 57 16 - 63 U/L [facility] Blood 01/28/2020 2:03 PM EDT 01/28/2020 2:07 PM EDT us Manjinder Staples MD LAB BLOOD ORDERABLES Final R esult [address] [address] * (ABNORMAL) Amylase (01/28/2020 2:03 PM EDT) AMYLASE 104(H) 28 - 100 U/L [facility] Blood 01/28/2020 2:03 PM EDT 01/28/2020 2:07 PM EDT us Manjinder Staples MD LAB BLOOD ORDERABLES Final R esult Performing Organization Address [facility] Co de Phone Number [address] [address] documented in this encounter Visit Diagnoses Diagnosis Chronic pancreatitis, unspecified pancreatitis type- Primary documented in this encounter Additional Health Concerns Infection Onset Date Last Indicated Resolved Time CoV-Exposed Comment:Recent close contact 05/30/2020 05/30/2020 06/13/2020 1:24 AM EST CoV-Presumed 10/01/2021 10/01/2021 10/22/2021 1:21 AM EDT Assessment Noted Time PHQ-2 Depression Total Score: 0 06/26/19 20 9:20 AM EST documented as of this encounter Care Teams Shipping Team Leader Relationship Specialty Start Date End Date Erlin Pennington MD [address] [place] [address], [address] [place] [address] PCP - General 03/05/17 09/24/24 Marily Elkins NP [address] [place] [address] Historical LMR Provider 03/04/17 05/27/21 Iris Chamberlain MD [address] [place] [address], [address] [place] [address] Historical LMR Provider 03/04/17 05/27/21 Gilma Cornelius DO [address] [place] [address] Historical LMR Provider 03/04/17 2 Erlin Pennington MD [address] [place] [address], [address] [place] [address] [email or web address] Historical LMR Provider 03/04/17 5 Miriam Valladares MD [address] [place] [address] Historical LMR Provider 03/04/17 2 Artie Mayorga CNP [address] [place] [address], [address] [place] [address] [email or web address] Historical LMR Provider 03/04/17 documented as of this encounter Additional Source Comments The information contained in this document represents components of the legal health record. It is not the complete legal health record.[facility]
--- OUTSIDE RECORDS SUMMARY | 2025-01-13 14:34 | XMS_ITS | Encounter Summary ---
Author Organization [facility] Address [employer] [address] [address] Phone Care Team Providers Care Millinery Teacher Name Role Phone Marily Elkins MOUNTED POLICE Unavailable [phone] Iris Chamberlain MD Unavailable Gilma Cornelius DO Unavailable Erlin Pennington MD Unavailable [phone] Miriam Valladares MD Unavailable [phone] Artie Mayorga CNP Unavailable Erlin Pennington MD Primary Care Provider [phone] Encounter Details Date Type Department Care Team (Latest Contact Info) Description 04/21/2018 Ancillary Orders Virtual Department 30 [place] [address] Gokul Stevens MD [address] [place] [address] [email or web address] Chronic pancreatitis, unspecified pancreatitis type Social History [...] right lobe of the liver. POS - [id number] Narrative 05/14/2018 12:10 PM EST US ABDOMEN [...] gallbladder wall thickening orpericholecystic fluid. Negative sonographic Becker sign. Biliary tree: [...] right lobe of the liver. POS - [id number] us Gokul Stevens MD IMG US ABDOMEN [...] documented as of this encounter Care Teams Millinery Teacher Relationship Specialty Start Date End Date Erlin Pennington MD [address] [place] [address], [address] [place] [address] PCP - General 03/05/17 09/24/24 Marily Elkins NP [address] [place] [address] Historical LMR Provider 03/04/17 05/27/21 Iris Chamberlain MD [address] [place] [address], [address] [place] [address] Historical LMR Provider 03/04/17 05/27/21 Gilma Cornelius DO 30 [place] [address] Historical LMR Provider 03/04/17 2 Erlin Pennington MD [address] [facility], [address] [place] [address] Historical LMR Provider 03/04/17 5 Miriam Valladares MD [address] [place] [address] Historical LMR Provider 03/04/17 2 Artie Mayorga CNP 22 [facility], [address] [place] [address] [email or web address] Historical LMR Provider 03/04/17 documented as of this encounter Additional Source Comments The information contained in this document represents components of the legal health record. It is not the complete legal health record.[facility]
--- OUTSIDE RECORDS SUMMARY | 2025-01-13 14:34 | XMS_ITS | Encounter Summary ---
Author Organization [facility] Address [facility] [employer] [address] [address] Phone Care Team Providers Care Apparel Merchandiser Name Role Phone Marily Elkins ORAL THERAPIST Unavailable [phone] Iris Chamberlain MD Unavailable Gilma Cornelius DO Unavailable [phone] Erlin Pennington MD Unavailable [phone] Miriam Valladares MD Unavailable [phone] Artie Mayorga CNP Unavailable Erlin Pennington MD Primary Care Provider [phone] Encounter Details Date Type Department Care Team (Late st Contact Info) Description 02/05/2020 Procedure Pass [facility], [address] [address] Social History Tobacco Use Types Packs/Day Years [...] on file documented as of this encounter Visit Diagnoses Not on filedocumented in this encounter Additional Health Concerns Infection Onset Date Last Indicated Resolved Time CoV-Exposed Comment:Recent close contact 05/30/2020 05/30/2020 06/13/2020 1:24 AM EST CoV-Presumed 10/01/2021 10/01/2021 10/22/2021 1:21 AM EDT Assessment Noted Time PHQ-2 Depression Total Score: 0 06/26/19 9:20 AM EST documented as of this encounter Care Teams Apparel Merchandiser Relationship Specialty Start Date End Date Erlin Pennington MD [address] [place] [address] PCP - General 03/05/17 09/24/24 Marily Elkins, RONI [address] [place] [address] Historical LMR Provider 03/04/17 05/27/21 Iris Chamberlain MD [address] [place] [address], [address] [place] [address] Historical LMR Provider 03/04/17 05/27/21 Gilma Cornelius DO [address] [place] [address] Historical LMR Provider 03/04/17 2 Erlin Pennington MD [address] [place] [address] Historical LMR Provider 03/04/17 5 Miriam Valladares MD [address] [place] [address] Historical LMR Provider 03/04/17 2 Artie Mayorga CNP 22 [facility], [address] [place] [address] Historical LMR Provider 03/04/17 documented as of this encounter Additional Source Comments The information contained in this document represents components of the legal health record. It is not the complete legal health record.[facility]
--- OUTSIDE RECORDS SUMMARY | 2025-01-13 14:34 | XMS_ITS | Encounter Summary ---
Author Organization [facility] Address [address] [employer] [address] [address] Phone Care Team Providers Care Health Science Instructor Name Role Phone Marily Elkins SURGICAL SERVICES TECH Unavailable [phone] Iris Chamberlain MD Unavailable Gilma Cornelius DO Unavailable [phone] Erlin Pennington MD Unavailable [phone] Miriam Valladares MD Unavailable [phone] Artie Mayorga CNP Unavailable Erlin Pennington MD Primary Care Provider Encounter Details Date Type Department Care Team (Late st Contact Info) Description 04/21/2018 Ancillary Orders Virtual Department 30 [place] [address] Gokul Stevens MD [address] [place] [address] [email or web address] Social History Tobacco Use Types Packs/Day Years [...] documented as of this encounter Care Teams Health Science Instructor Relationship Specialty Start Date End Date Erlin Pennington MD [address] [place] [address], [address] [place] [address] PCP - General 03/05/17 09/24/24 Marily Elkins NP [address] [place] [address] Historical LMR Provider 03/04/17 05/27/21 Iris Chamberlain MD [address] [place] [address], [address] [address] Historical LMR Provider 03/04/17 05/27/21 Gilma Cornelius DO [address] [place] [address] Historical LMR Provider 03/04/17 2 Erlin Pennington MD [address] [place] [address] Historical LMR Provider 03/04/17 5 Miriam Valladares MD [address] [place] [address] Historical LMR Provider 03/04/17 2 Artie Mayorga CNP [address] [place] [address], [address] [place] [address] [email or web address] Historical LMR Provider 03/04/17 documented as of this encounter Additional Source Comments The information contained in this document represents components of the legal health record. It is not the complete legal health record.[facility]
--- OUTSIDE RECORDS SUMMARY | 2025-01-13 14:34 | XMS_ITS | Encounter Summary ---
Author Organization [facility] Address [facility] [employer] [address] [address] Phone Care Team Providers Care Job Site Supervisor Name Role Phone Marily Elkins WEB SITE PROJECT MANAGER Unavailable [phone] Iris Chamberlain MD Unavailable Gilma Cornelius DO Unavailable [phone] Erlin Pennington MD Unavailable [phone] Miriam Valladares MD Unavailable [phone] Artie Mayorga CNP Unavailable Erlin Pennington MD Primary Care Provider Encounter Details Date Type Department Care Team (Latest Contact Info) Description 12/20/2017 Transcribe Orders [facility] Laboratory 30 [place] [address] Leydi Durham PA [address] [place] [address] Diagnosis unknown (Primary Dx) Social History Tobacco Use Types [...] documented as of this encounter Results * Lipase (12/20/2017 5:11 PM EDT) LIPASE 60 16 - 63 U/L [facility] Blood 12/20/2017 5:11 PM EDT 12/20/2017 5:14 PM EDT us Leydi TERRY LAB BLOOD ORDERABLES Final Result [address] [address] * Comprehensive metabolic panel (12/20/2017 5:11 PM EDT) SODIUM 139 133 - 146 mmol/L [facility] POTASSIUM 3.8 3.3 - 5.1 mmol/L [facility] CHLORIDE 102 96 - 108 mmol/L [facility] CO2 24 21 - 35 mmol/L [facility] BUN 16 6 - 19 mg/dL [facility] CREATININE 0.90 0.5 - 1.5 mg/dL [facility] GLUCOSE 87 70 - 99 mg/dL [facility] ALBUMIN 4.2 3.9 - 4.8 g/dL [facility] TOTAL PROTEIN 7.1 6.5 - 8.0 g/dL [facility] CALCIUM 8.5 8.4 - 10.3 mg/dL [facility] ALKALINE PHOSPHATASE 51 39 - 117 U/L [facility] TOTAL BILIRUBIN 0.3 0.0 - 1.2 mg/dL [facility] AST 17 0 - 37 U/L [facility] ALT 12 0 - 40 U/L [facility] GLOBULIN 2.9 1 - 4.8 g/dL [facility] EGFR 83 >59 mL/min/1.7 3m2 [facility] Comment:If patient is black, multiply result by 1.159. Estimated glomerular filtration rate calculated using the CKD-EPI equation. ANION GAP 17 10 - 20 mmol/L [facility] Blood 12/20/2017 5:11 PM EDT 12/20/2017 5:14 PM EDT us Leydi TERRY LAB BLOOD ORDERABLES Final Result [address] [place] [address] * (ABNORMAL) CBC and differential (12/20/2017 5:11 PM EDT) WBC 6.62 3.40 - 11.20 K/uL [facility] RBC 4.36 3.80 - 4.80 M/uL [facility] HGB 14.3 12.0 - 15.0 g/dL [facility] HCT 40.6 36.0 - 46.0 % [facility] PLT 252 130 - 400 K/uL [facility] MCV 93.1 79.0 - 98.0 fL [facility] MCH 32.8 27.0 - 34.8 pg [facility] MCHC 35.2 31.5 - 36.0 g/dL [facility] RDW 12.2 10.8 - 14.6 % [facility] MPV 10.5 9.4 - 12.4 fl [facility] NRBC 0.00 /100 WBCs [facility] ABSOLUTE NRBC 0.00 K/uL [facility] DIFF METHOD Auto [facility] NEUTS 47.5 45.30 - 77.70 % [facility] LYMPHS 42.7(H) 12.30 - 39.70 % [facility] MONOS 5.3 4.10 - 12.80 % [facility] EOS 3.2 0 - 7.2 % [facility] BASOS 1.1 0 - 2.80 % [facility] Granulocytes, immature (%) 0.2 0.0 - 0.9 % [facility] ABSOLUTE NEUTS 3.15 1.40 - 7.70 K/uL [facility] ABSOLUTE LYMPHS 2.83 0.60 - 3.20 K/uL [facility] ABSOLUTE MONOS 0.35 0.11 - 0.59 K/uL [facility] ABSOLUTE EOS 0.21 0.01 - 0.50 K/uL [facility] ABSOLUTE BASOS 0.07 0.00 - 0.08 K/uL [facility] Granulocytes, immature 0.01 0.00 - 0.05 K/uL [facility] Blood 12/20/2017 5:11 PM EDT 12/20/2017 5:14 PM EDT us Leydi TERRY LAB BLOOD ORDERABLES Final Result [address] [address] documented in this encounter Visit Diagnoses Diagnosis Diagnosis unknown- Primary documented in this encounter Additional Health Concerns Infection Onset Date Last Indicated Resolved Time CoV-Exposed Comment:Recent close contact 05/30/2020 05/30/2020 06/13/2020 1:24 AM EST CoV-Presumed 10/01/2021 10/01/2021 10/22/2021 1:21 AM EDT documented as of this encounter Care Teams Job Site Supervisor Relationship Specialty Start Date End Date Erlin Pennington MD [address] [place] [address], [address] [address] PCP - General 03/05/17 09/24/24 Marily Elkins NP [address] [place] [address] Historical LMR Provider 03/04/17 05/27/21 Iris Chamberlain MD [address] [place] [address], [address] [address] Historical LMR Provider 03/04/17 05/27/21 Gilma Cornelius DO [address] [place] [address] Historical LMR Provider 03/04/17 2 Erlin Pennington MD [address] [place] [address] Historical LMR Provider 03/04/17 5 Miriam Valladares MD [address] [place] [address] Historical LMR Provider 03/04/17 2 Artie Mayorga CNP 22 [facility], [address] [place] [address] [email or web address] Historical LMR Provider 03/04/17 documented as of this encounter Additional Source Comments The information contained in this document represents components of the legal health record. It is not the complete legal health record.[facility]
--- OUTSIDE RECORDS SUMMARY | 2025-01-13 14:34 | XMS_ITS | Encounter Summary ---
Author Organization [facility] Address [address] [place] [address] Phone Care Team Providers Care Spinner Operator Name Role Phone Marily Elkins MANAGER COMMODITIES Unavailable [phone] Iris Chamberlain MD Unavailable Gilma Cornelius DO Unavailable [phone] Erlin Pennington MD Unavailable [phone] Miriam Valladares MD Unavailable [phone] Artie Mayorga CNP Unavailable [phone] Erlin Pennington MD Primary Care Provider [phone] Reason for Referral * MRI/CAT Scan - Closed Specialty Diagnoses / Procedures Referred By Contac t Referred To Contact Radiology Diagnoses Idiopathic chronic pancreatitis Procedures MRI Cholangiopancreatography (MRCP) Manjinder Staples MD Phone: tel: fax: mailto:[email or web address] Referral ID Status Reason Start Date Expiration Date Visits Re quested Visits Authorized [id number] Closed 02/04/2020 08/02/2020 1 1 Encounter Details Date Type Department Care Team (Latest Contact Info) Description 02/05/2020 Transcribe Orders [facility] Department [address] [place] [address] Manjinder Staples MD [address] [place] [address] [email or web address] Idiopathic chronic pancreatitis (Primary Dx) Social History Tobacco Use Types [...] documented as of this encounter Results * MRI CHOLANGIOPANCREATOGRAPHY (MRCP) WITHOUT CONTRAST (02/19/2020 9:02 AM EDT) Anatomical Region Laterality Modality Pancreas, Biliary Magnetic Reson ance 02/19/2020 9:31 AM EDT Impressions 02/19/2020 9:43 AM EDT Essentially normal MRCP. Short segmental stricture of the right hepatic duct is not accompanied by upstream dilatation and there is no other duct irregularity therefore cholangitis or PBC are unlikely; this may just be a crossing vessel. No other pathology is apparent. POS [id number] Narrative 02/19/2020 9:43 AM EDT TECHNIQUE: 1.5 Lori scanner. Nonenhanced exam. 3-D MIPS reconstructions. Compared ultrasound 05/14/[address] 5 11/04/2016. FINDINGS: No gallstones, other gallbladder filling defects, wall thickening or pericholecystic fluid. No biliary dilatation. Common duct measures only about 5 mm maximum and no filling defects are identified at any level in the biliary tree. There does however appear to be a short segmental stricture of the right hepatic duct just proximal to the junction with the left but there is no upstream dilatation to suggest significant obstruction. This may just be due to a crossing vessel. No other biliary tree irregularity is apparent; cholangitis seems very unlikely. No pancreatic duct dilatation, irregularity or filling defects. No evidence of pancreatic mass or pancreatitis. Liver, spleen, adrenals and kidneys all unremarkable. No ascites, adenopathy or pleural effusion. Procedure Note Mario Delgado MD - 02/19/2020 TECHNIQUE: 1.5 Lori scanner. Nonenhanced exam. 3-D MIPSreconstructions. Compared ultrasound 05/14/[address] 5 11/04/2016. FINDINGS: No gallstones, other gallbladder filling defects, wall thickening orpericholecystic fluid. No biliary dilatation. Common duct measures only about 5 mm maximum and nofilling defects are identified at any level in the biliary tree. Theredoes however appear to be a short segmental stricture of the right hepaticduct just proximal to the junction with the left but there is no upstreamdilatation to suggest significant obstruction. This may just be due to acrossing vessel. No other biliary tree irregularity is apparent;cholangitis seems very unlikely. No pancreatic duct dilatation, irregularity or filling defects. No evidence of pancreatic mass or pancreatitis. Liver, spleen, adrenals and kidneys all unremarkable. No ascites, adenopathy or pleural effusion. IMPRESSION: Essentially normal MRCP. Short segmental stricture of the right hepaticduct is not accompanied by upstream dilatation and there is no other ductirregularity therefore cholangitis or PBC are unlikely; this may just be acrossing vessel. No other pathology is apparent. POS [id number] Manjinder Staples MD IMG MR ABDOMEN Final Result documented in this encounter Visit Diagnoses Diagnosis Idiopathic chronic pancreatitis- Primary Idiopathic chronic pancreatitis documented in this encounter Additional Health Concerns Infection Onset Date Last Indicated Resolved Time CoV-Exposed Comment:Recent close contact 05/30/2020 05/30/2020 06/13/2020 1:24 AM EST CoV-Presumed 10/01/2021 10/01/2021 10/22/2021 1:21 AM EDT Assessment Noted Time PHQ-2 Depression Total Score: 0 06/26/19 20 9:20 AM EST documented as of this encounter Care Teams Spinner Operator Relationship Specialty Start Date End Date Erlin Pennington MD [address] [place] [address], [address] [place] [address] PCP - General 03/05/17 09/24/24 Marily Elkins NP [address] [place] [address] Historical LMR Provider 03/04/17 05/27/21 Iris Chamberlain MD 22 [facility], [address] [place] [address] Historical LMR Provider 03/04/17 05/27/21 Gilma Cornelius DO [address] [place] [address] Historical LMR Provider 03/04/17 2 Erlin Pennington MD [address] [place] [address], [address] [place] [address] Historical LMR Provider 03/04/17 5 Miriam Valladares MD [address] [place] [address] Historical LMR Provider 03/04/17 2 Artie Mayorga CNP 22 [facility], [address] [place] [address] Historical LMR Provider 03/04/17 documented as of this encounter Additional Source Comments The information contained in this document represents components of the legal health record. It is not the complete legal health record.[facility]
--- OUTSIDE RECORDS SUMMARY | 2025-01-13 14:35 | XMS_ITS | Encounter Summary ---
Author Organization [facility] Address [facility] [employer] [address] [address] Phone Care Team Providers Care Silverware Etcher Name Role Phone Marily Elkins TIRE MECHANIC Unavailable [phone] Iris Chamberlain MD Unavailable Gilma Cornelius DO Unavailable [phone] Erlin Pennington MD Unavailable Miriam Valladares MD Unavailable [phone] Artie Mayorga CNP Unavailable Erlin Pennington MD Primary Care Provider [phone] Encounter Details Date Type Department Care Team (Latest Contact Info) Description 09/24/2018 Transcribe Orders [facility] Specimen Processing [address] [place] [address] Rashmi Gordon PA-C [address], [place] [place] [address] [email or web address] Acute pancreatitis, unspecified complication status, unspecified pancreatitis type (Primary Dx) Social History [...] documented as of this encounter Results * Pancreatic Elastase, Stool (09/24/2018 6:52 PM EDT) [facility] ST PANCREA ELASTASE 480 mcg/g [facility] Comment: (NOTE) Adult and Pediatric Reference Ranges for Pancreatic Elastase-1: Normal: >200 mcg/g Moderate Pancreatic Insufficiency: 100-200 mcg/g Severe Pancreatic Insufficiency: <100 mcg/g Elastase-1 (E-1) assay results are expressed in mcg/g, which represent mcg E1/g feces. It is not necessary to interrupt enzyme substitution therapy. Test Performed by: [facility] [place] [address] [place] [address] Stool (Stool) 09/24/2018 6:5 2 PM EDT 09/24/2018 6:54 PM EDT Rashmi Gordon PA-C BODY FLUIDS AND STOOLS ORDERABL ES Final Result [facility] documented in this encounter Visit Diagnoses Diagnosis Acute pancreatitis, unspecified complication status, unspecified pancreatitis type- Primary documented in this encounter Additional Health Concerns Infection Onset Date Last Indicated Resolved Time CoV-Exposed Comment:Recent close contact 05/30/2020 05/30/2020 06/13/2020 1:24 AM EST CoV-Presumed 10/01/2021 10/01/2021 10/22/2021 1:21 AM EDT documented as of this encounter Care Teams Silverware Etcher Relationship Specialty Start Date End Date Erlin Pennington MD [address] [place] [address], [address] [place] [address] PCP - General 03/05/17 09/24/24 Marily Elkins NP [address] [place] [address] Historical LMR Provider 03/04/17 05/27/21 Iris Chamberlain MD 22 [facility], [address] [place] [address] Historical LMR Provider 03/04/17 05/27/21 Gilma Cornelius DO [address] [place] [address] Historical LMR Provider 03/04/17 2 Erlin Pennington MD [address] [place] [address], [address] [place] [address] [email or web address] Historical LMR Provider 03/04/17 5 Miriam Valladares MD [address] [place] [address] Historical LMR Provider 03/04/17 2 Artie Mayorga CNP [address] [place] [address], [address] [place] [address] [email or web address] Historical LMR Provider 03/04/17 documented as of this encounter Additional Source Comments The information contained in this document represents components of the legal health record. It is not the complete legal health record.[facility]
--- OUTSIDE RECORDS SUMMARY | 2025-01-13 14:35 | XMS_ITS | Encounter Summary ---
Author Organization [facility] Address [facility] [address] [address] Phone Care Team Providers Care Machine Chocolate Molder Name Role Phone Marily Elkins RIDE ASSEMBLY SUPERVISOR Unavailable [phone] Iris Chamberlain MD Unavailable Gilma Cornelius DO Unavailable [phone] Erlin Pennington MD Unavailable [phone] Miriam Valladares MD Unavailable [phone] Artie Mayorga CNP Unavailable [phone] Erlin Pennington MD Primary Care Provider Encounter Details Date Type Department Care Team (Latest Contact Info) Description 07/23/2019 Transcribe Orders [facility] Laboratory [address] [id number] Leydi Durham PA [address] [place] [address] Acute pancreatitis, unspecified complication status, unspecified pancreatitis [...] documented as of this encounter Results * CBC (07/23/2019 11:56 AM EST) WBC 8.02 4.00 - 11.00 K/uL [facility] Comment:Note Reference Range updates to all CBC and Differential results. RBC 4.64 3.72 - 5.30 M/uL [facility] HGB 14.8 10.6 - 15.5 g/dL [facility] Comment:Note updated Referen ce Ranges for all CBC and Differential results. HCT 43.3 32.0 - 45.0 % [facility] PLT 248 140 - 430 K/uL [facility] MCV 93.3 78.0 - 97.0 fL [facility] MCH 31.9 25.0 - 33.0 pg [facility] MCHC 34.2 32.0 - 36.0 g/dL [facility] RDW 12.6 11.0 - 16.0 % [facility] MPV 10.5 8.4 - 12.8 fl [facility] NRBC 0.00 0 /100 WBCs [facility] ABSOLUTE NRBC 0.00 0 K/uL [facility] Blood 07/23/2019 11:5 6 AM EST 07/23/2019 12:01 PM EST us Leydi TERRY LAB BLOOD ORDERABLES Final Result Performing Organization Address City/State/[facility] Co de Phone Number [address] [address] * (ABNORMAL) IgG subclasses (07/23/2019 11:56 AM EST) IGG 1 509 341 - 894 mg/dL [facility] [address] IGG 2 598 171 - 632 mg/dl [facility] [address] IGG 3 88.3 18.4 - 106.0 mg/dl [facility]PATH [address] IGG 4 212.0(H) 2.4 - 121.0 mg/dl [facility] [address] TOTAL IGG 1,360 767 - 1,590 mg/dl [facility] [address] Blood 07/23/2019 11:5 6 AM EST 07/23/2019 12:01 PM EST Leydi TERRY LAB BLOOD ORDERABLES Final Result Performing Organization Address City/[facility] Co de Phone Number [facility] LAB MED/PATH [address] [place] [address] * Lipase (07/23/2019 11:56 AM EST) LIPASE 47 16 - 63 U/L [facility] Blood 07/23/2019 11:5 6 AM EST 07/23/2019 12:01 PM EST Leydi TERRY LAB BLOOD ORDERABLES Final Result Performing Organization Address [facility] de Phone Number [address] [address] documented in this encounter Visit Diagnoses Diagnosis [...] documented as of this encounter Care Teams Machine Chocolate Molder Relationship Specialty Start Date End Date Erlin Pennington MD [address] [place] [address], [address] [place] [address] PCP - General 03/05/17 09/24/24 Marily Elkins NP [address] [place] [address] [email or web address] Historical LMR Provider 03/04/17 05/27/21 Iris Chamberlain MD [address] [facility], [address] [place] [address] Historical LMR Provider 03/04/17 05/27/21 Gilma Cornelius DO [address] [place] [address] Historical LMR Provider 03/04/17 2 Erlin Pennington MD [address] [place] [address], [address] [place] [address] [email or web address] Historical LMR Provider 03/04/17 5 Miriam Valladares MD [address] [place] [address] Historical LMR Provider 03/04/17 2 Artie Mayorga CNP [address] [place] [address], [address] [place] [address] [email or web address] Historical LMR Provider 03/04/17 documented as of this encounter Additional Source Comments The information contained in this document represents components of the legal health record. It is not the complete legal health record.[facility]
--- OUTSIDE RECORDS SUMMARY | 2025-01-13 14:35 | XMS_ITS | Patient Health Record ---
Author Organization [employer] [facility] Address [address] [place] [address] [address] [place] [address] Care Team Providers Care Abrasive Worker Name Role Phone VALERY MOREAU CNP Primary Care Provider TALISHA Mckenzie Unavailable [phone] Allergies Allergen (clinical drug ingredient) Drug/Non Drug [...] Status W/U Status Risk Notes Problem COVID-19 (907741532) COVID-19 (U07.1) Active confirmed Vital Signs Temperature 98.0 degrees Fahrenheit 10/09/2024 Blood pressure diastolic 74 mm Hg 10/09/2024 Height 64 in 10/09/2024 Blood pressure systolic 110 mm Hg 10/09/2024 Weight 169 lbs 10/09/2024 BMI 29.01 kg/m2 10/09/2024 Encounters Encounter Location Date Provider Diagnosis [facility] [email or web address] [place] [address] 06/12/2024 TALISHA SEGURAS Nonspecific low blood-pressure reading R03.1 Total [facility] [address] [facility] [address] [place] [address] 10/09/2024 TALISHA OKEEFE Encounter for gynecological examination (general) (routine) without abnormal findings Z01.419 ; Encounter for screening mammogram for malignant neoplasm of breast Z12.31 and Presence of (intrauterine) contraceptive device Z97.5 [facility] [email or web address] [place] [address] 06/11/2024 TALISHA OKEEFE Assessments Encounter Date Diagnosis [...] Provider Name:TALISHA Dodson, 10/15/2025 03:00:00 PM, [email or web address], [address], [place], [address], Insurance Providers Payer Name Payer Address Payer Phone Subscriber Number Group Number Insured Name Patient Relationship to Insured Coverage Start Date Coverage End Date [employer] [place] [address] [address] [place] [address] [id number] KUMAR GONSALVES Self - patient is the insured 3 Medical (General) History Medical History History ICD Code COVID-19 U07.1 Surgical History Surgery Date(Month/Year) [place] teeth extraction 2006 Hospitalization History Reason Date(Month/Year) Childbirth
--- OUTSIDE RECORDS SUMMARY | 2025-01-13 14:35 | XMS_ITS | Clinical Summary ---
Author Organization [facility] Address [address] [place] [address] Phone Care Team Providers Care Meat Clerk Name Role Phone Tiffany Daria TUTTLE Primary Care Provider [phone] Encounters Date Type Department Care Team Description 11/24/2024 2:09 PM EDT - 11/24/2024 11:59 PM EDT Hospital Encounter [facility] Xray [address] [place] [address] Syncope and collapse Discharge Disposition: [...] inal Result from Last 3 Months Insurance [employer] [facility] Care Teams Meat Clerk Relationship Specialty Start Date End Date Daria Allen FNP [address] [place] [phone] PCP - General Internal Medicine 11/24/24
--- OUTSIDE RECORDS SUMMARY | 2025-01-13 14:35 | XMS_ITS | Clinical Summary ---
Author Organization [facility] Address [address] [address] Phone Care Team Providers Care Radio Program Director Name Role Phone Unavailable Primary Care Provider Unavailabl e Allergies Active Allergy Reactions Criticality Noted Date Comments Bupropion Hcl Other (See Comments) Low 10/02/2016 Per pt report: Dow out of it Cat's Claw (Uncaria Tomentosa) Hives 10/02/2016 Codeine Phosphate GI Upset Low 10/02/2016 Erythromycin Hives 10/02/2016 Fluoxetine Other (See Comments) Low 10/02/2016 Per pt report: Dow out of it Sertraline Hcl Other (See Comments) Low 10/02/2016 Per pt report: Dow out of it Sulfamethoxazole-Trime thoprim Nausea and/or Vomiting Low 10/02/2016 Side effect was vomiting but pt is not certain this is a formal intolerance or just part the ailment that was being treated Medications Hospital, Clinic, or Other Facility Administered Medication Ordered Dose Route Frequency Start Date End Date Status levonorgestreL (MIRENA) 20 mcg/24 hours (6 yrs) 52 mg intrauterine device 1 eachIndications:Encounter for insertion of intrauterine contraceptive device 1 each Utrn Every 5 years 12/29/2020 A ctive Active Problems Problem Noted Date Diagnosed Date History of abnormal cervical Pap smear 1 Overview (05/26/2020): 2016: NIL/HPV pos 2017: NIL/HPV neg Chronic pancreatitis 06/26/2019 Assessment & Plan (06/26/2019 10:04 AM EST): Previously evaluated at [facility] with EUS, reportedly normal. Recommend follow up with GI. Allergic rhinitis due to animal hair and dander 03/31/2018 PMDD (premenstrual dysphoric disorder) 8 Stress incontinence 03/31/2018 Weight gain 03/31/2018 Immunizations Immunization Administration Dates Next Due COVID-19 (Pre-03/11) Moderna Vaccine, mRNA, PF 0 07/08/2020,06/03/2020 Influenza High-Dose Quadrivalent Preservative Fr ee IM 03/06/2021 Influenza Quadrivalent MDCK Preservative Free IM 03/08/2018 Influenza Quadrivalent Preservative Free IM 05/2019 Influenza Quadrivalent w/ Preservative IM 2014 Influenza, Unspecified Formulation 02/12/2019 Tdap 06/26/2019 Family History Medical History Relation Comments No Known Problems Daughter Arthritis Mother Relation Status Comments Daughter Alive Father Alive Mother Alive Social History Tobacco Use Types Packs/Day Years Used Date Smoking Tobacco: Former Cigarettes 0.5 4 2 001 - 2004 Smokeless Tobacco: Never Tobacco Cessation:Counseling Given: No Alcohol Use Standard Drinks/Week Comments Yes 0 (1 standard drink = 0.6 oz pur e alcohol) occasionly Education Answer Date Recorded Are you interested in more education? Not on dmitry e 09/14/2022 Are you concerned about learning? Not on file 09/14/2022 No 09/14/2022 No 09/14/2022 Digital Access Answer Date Recorded No 10/12/2022 No 10/12/2022 No 10/12/2022 Reliable internet access at home? Not on file 10/12/2022 Device with a working camera? Not on file Comments No Sex and Gender Information Value Date Recorded Sex Assigned at Female 03/15/2021 2:40 PM EDT Legal Sex Female 9:16 PM EDT Gender Identity Not on file Sexual Orientation Not on file Last Filed Vital Signs Vital Sign Reading Time Taken Comments Blood Pressure 116/80 09/14/2021 11:36 AM EDT Pulse 89 09/14/2021 11:36 AM EDT Temperature 35.6 C (96 F) 09/14/2021 11:36 AM EDT Respiratory Rate 16 03/15/2021 2:36 PM EDT Oxygen Saturation 98% 09/14/2021 11:36 AM EDT Inhaled Oxygen Concentration - - Weight 74.6 kg (164 lb 6.4 oz) 09/14/2021 11:36 AM EDT Height 165.1 cm (5' 5 ) 09/14/2021 11:36 AM EDT Body Mass Index 27.36 09/14/2021 11:36 AM EDT Plan of Treatment Health Maintenance Due Date Last Done Comments SMOKING Hx and SMOKELESS TOBACCO SCREENING 10/15/1996 HEPATITIS C SCREENING 10/15/2001 HIV ONE-TIME SCREENING (18-6 5 YEARS) 10/15/2001 DEPRESSION SCREENING 06/26/2020 06/26/2019 PAP SMEAR 05/26/2023 05/26/2020, 03/06/2017 MAMMOGRAM 2023 COVID-19 VACCINE (2023-2 5 season) 2024 05/06/2021, 07/08/2020, 06/03/2020 IUD 12/29/2028 12/29/2020 Adult Td,Tdap Booster 06/26/2029 06/26/2019 HEPATITIS A VACCINES Aged Out No long er eligible based on patient's age to complete this topic HIB VACCINES Aged Out No longer eligi ble based on patient's age to complete this topic MENINGOCOCCAL VACCINES (ACWY) Aged Out No longer eligible based on patient's age to complete this topic MENINGOCOCCAL VACCINES (B) Aged Out N o longer eligible based on patient's age to complete this topic PNEUMOCOCCAL VACCINES (0-49 years) Aged Out No longer eligible b ased on patient's age to complete this topic Medical Devices Implanted Type Area Mortgage Coordinator Device Identifier Shelf Expiration Date Model / Serial / Lot Iud Implanted:04/2021 (Quantity not on file) Intrauterine Device Procedures Procedure Name Priority Date/Time Associated Diagnosis Comments PAP TEST Routine 05/26/2020 12:00 AM EST from Last 3 Months or Most Recently Relevant to Health Maintenance Results * Pap Smear (05/26/2020 12:00 AM EST) 05/26/2020 05/27/2020 9:2 4 AM EST Narrative SEE NARRATIVE - 05/31/2020 9:47 AM EST [address] [address] Literacy Tutor: Ely Carver MD DYNAMIC ETCHING PROCESSOR Cytology Report FINAL DIAGNOSIS A. PAP SMEAR (SUREPATH) CE: SPECIMEN ADEQUACY: Satisfactory for evaluation; transformation zone present. INTERPRETATION: NEGATIVE FOR INTRAEPITHELIAL LESION OR MALIGNANCY. Electronically Signed Out By: ROLAND Sam(ASCP) The Pap test is a screening test primarily for squamous cancers and precursors and has associated false-negative and false-positive results. New technologies such as liquid-based preparations may decrease but will not eliminate all false-negative results. Regular sampling and follow-up of unexplained clinical signs and symptoms are recommended to minimize false negative results. PROCEDURES/ADDENDA HPV Testing (Requested) Ordered Date: 05/27/2020 A. PAP SMEAR (SUREPATH) CE: Human Papilloma Virus Test Negative for high-risk human papillomavirus types 16, 18, 45 and the Other high risk probe set (Includes 31, 33, 35, 39, 51, 52, 56, 58, 59, 66, 68) by [employer] Onclarity HR-HPV analysis. Clinical correlation is advised. This HPV test was performed at [facility], [address] [place] [address]. This test has been FDA approved for SurePath cervical cytology specimens. The accuracy and precision of this test for all other specimen sources has been verified in the Cytopathology Laboratory of the [facility] and has not been cleared or approved by the U.S. Food and Drug Administration. Clinical correlation is advised. CLINICAL HISTORY Date of Last Menstrual Period: 05-22-2020 Contraceptive History: IUD Other Clinical Conditions: Screening Pap SPECIMEN SOURCE A: PAP SMEAR (SUREPATH) CE Patient Name: KUMAR MADSEN : 1985 (Age: 34) Sex: F Institution: [facility]: [facility] Date of Collection: 05/26/2020 Date of Reported: 05/30/2020 15:22 Results to: Anita Hope MD us Anita Hope MD CYTOLOGY ORDERABLES Edited Re sult - Final SEE NARRATIVE from Last 3 Months or Most Recently Relevant to Health Maintenance [place] [address] [place] [address] OUT OF [facility]PO [facility] OUT OF STATE PPO [facility] OUT OF [facility] PPO [facility] PPO [facility] PPO [facility] PPO Advance Directives For more information, please contact: [phone] (9AM - 5PM [facility], Saturday-Saturday) Documents on File Type Date Recorded Patient Medical Physics Professor Expl anation Healthcare Proxy 10/21/2018 [facility] Care Proxy (10/15/18) Additional Source Comments The information contained in this document represents components of the legal health record. It is not the complete legal health record.[facility]
== END 2025-01-13 13:45 | disposition home or self-care (01) ==
LOC: HO.XRAY 13:44
PROVIDERS: PCP Nurse Practitioner Family; Visit Provider Nurse Practitioner Family
DX: M79.672 Pain in left foot (principal); M79.671 Pain in right foot
CPT/HCPCS: 73630

== ENCOUNTER → 2025-01-13 13:50 | Outpatient (BNV) | payer OTHER, SELFPAY | PROVIDERS: PCP Nurse Practitioner Family; Visit Provider Radiology Diagnostic Radiology | DX: M77.31 Calcaneal spur, right foot (principal); M79.672 Pain in left foot | CPT/HCPCS: 73630 ==

== ENCOUNTER 2025-01-14 09:08 | Outpatient (REF) | payer OTHER, SELFPAY ==
--- OUTSIDE RECORDS SUMMARY | 2025-01-14 10:06 | XMS_ITS | Patient Health Record ---
Author Organization [employer] [facility] Address [address] [place] [address] [address] [place] [address] Care Team Providers Care Plumbing Assembler Name Role Phone VALERY MOREAU CNP Primary Care Provider TALISHA Mckenzie Unavailable [phone] Allergies Allergen (clinical drug ingredient) Drug/Non Drug [...] Status W/U Status Risk Notes Problem COVID-19 ([id number]) COVID-19 (U07.1) Active confirmed Vital Signs Temperature 98.0 degrees Fahrenheit 10/09/2024 Blood pressure diastolic 74 mm Hg 10/09/2024 Height 64 in 10/09/2024 Blood pressure systolic 110 mm Hg 10/09/2024 Weight 169 lbs 10/09/2024 BMI 29.01 kg/m2 10/09/2024 Encounters Encounter Location Date Provider Diagnosis [facility] [address] [place] [address] 06/12/2024 TALISHA OKEEFE Nonspecific low blood-pressure reading R03.1 Total [facility] [address] [facility] [address] [place] [address] 10/09/2024 TALISHA OKEEFE Encounter for gynecological examination (general) (routine) without abnormal findings Z01.419 ; Encounter for screening mammogram for malignant neoplasm of breast Z12.31 and Presence of (intrauterine) contraceptive device Z97.5 [facility] [address] [place] [address] 06/11/2024 ATLISHA OKEEFE Assessments Encounter Date Diagnosis (ICD Code) [...] Order Date MM Digital Screening Mammogram 3D 2024 MM Digital Screening Mammogram 3D 2023 Next Appt Details Provider Name:TALISHA Dodson, 10/15/2025 03:00:00 PM, [address], [address], [place], [address], Insurance Providers Payer Name Payer Address Payer Phone Subscriber Number Group Number Insured Name Patient Relationship to Insured Coverage Start Date Coverage End Date [employer] [place] [address] [address] [place] [address] [id number] KUMAR GONSALVES Self - patient is the insured 3 Medical (General) History Medical History History ICD Code COVID-19 U07.1 Surgical History Surgery Date(Month/Year) [place] teeth extraction 2006 Hospitalization History Reason Date(Month/Year) Childbirth
--- OUTSIDE RECORDS SUMMARY | 2025-01-14 10:06 | XMS_ITS | Encounter Summary ---
Author Organization [facility] Address [facility] [employer] [address] [address] Phone Care Team Providers Care Ortho/Prosthetic Aide Name Role Phone Marily Elkins BEEF CATTLE FARM WORKER Unavailable [phone] Iris Chamberlain MD Unavailable Gilma Cornelius DO Unavailable [phone] Erlin Pennington MD Unavailable [phone] Miriam Valladares MD Unavailable [phone] Artie Mayorga CNP Unavailable [phone] Erlin Pennington MD Primary Care Provider Encounter Details Date Type Department Care Team (Latest Contact Info) Description 01/28/2020 Transcribe Orders [facility] [address] 2[address] Floor [place], [place] [id number] Manjinder Staples MD 10 [facility] 2 [place] [address] [email or web address] Chronic pancreatitis, unspecified pancreatitis type (Primary Dx) [...] REACTIVE PROTEIN <0.3 0.0 - 4.0 mg/L [facility] Blood 01/28/2020 2:03 PM EDT 01/28/2020 2:07 PM EDT us Manjinder Staples MD LAB BLOOD ORDERABLES Final R esult [facility] [address] [place] [address] * Comprehensive metabolic panel (01/28/2020 2:03 PM EDT) SODIUM 138 133 - 146 mmol/L [facility] POTASSIUM 4.3 3.3 - 5.1 mmol/L [facility] CHLORIDE 104 96 - 108 mmol/L [facility] CO2 24 21 - 35 mmol/L [facility] BUN 13 6 - 19 mg/dL [facility] CREATININE 0.70 0.5 - 1.5 mg/dL [facility] GLUCOSE 95 70 - 99 mg/dL [facility] ALBUMIN 4.3 3.9 - 4.8 g/dL [facility] TOTAL PROTEIN 7.1 6.5 - 8.0 g/dL [facility] CALCIUM 9.3 8.4 - 10.3 mg/dL [facility] ALKALINE PHOSPHATASE 50 39 - 117 U/L [facility] TOTAL BILIRUBIN 0.3 0.0 - 1.2 mg/dL [facility] AST 29 0 - 37 U/L [facility] ALT 13 0 - 40 U/L [facility] GLOBULIN 2.8 1 - 4.8 g/dL [facility] EGFR 111 >59 mL/min/1.7 3m2 [facility] Comment:Estimated glomerular filtration rate calculated using the CKD-EPI equation. ANION GAP 14 10 - 20 mmol/L [facility] Blood 01/28/2020 2:03 PM EDT 01/28/2020 2:07 PM EDT us Manjinder Staples MD LAB BLOOD ORDERABLES Final R esult [address] [address] * CBC (01/28/2020 2:03 PM EDT) WBC 5.52 4.00 - 11.00 K/uL [facility] Comment:Note Reference Range updates to all CBC and Differential results. RBC 4.67 3.72 - 5.30 M/uL [facility] HGB 14.9 10.6 - 15.5 g/dL [facility] Comment:Note updated Referen ce Ranges for all CBC and Differential results. HCT 44.2 32.0 - 45.0 % [facility] PLT 252 140 - 430 K/uL [facility] MCV 94.6 78.0 - 97.0 fL [facility] MCH 31.9 25.0 - 33.0 pg [facility] MCHC 33.7 32.0 - 36.0 g/dL [facility] RDW 12.3 11.0 - 16.0 % [facility] MPV 10.6 8.4 - 12.8 fl [facility] NRBC 0.00 0 /100 WBCs [facility] ABSOLUTE NRBC 0.00 0 K/uL [facility] Blood 01/28/2020 2:0 3 PM EDT 01/28/2020 2:07 PM EDT us Manjinder Staples MD LAB BLOOD ORDERABLES Final R esult [address] [address] * Lipase (01/28/2020 2:03 PM EDT) LIPASE 57 16 - 63 U/L [facility] Blood 01/28/2020 2:03 PM EDT 01/28/2020 2:07 PM EDT us Manjinder Staples MD LAB BLOOD ORDERABLES Final R esult [address] [address] * (ABNORMAL) Amylase (01/28/2020 2:03 PM EDT) AMYLASE 104(H) 28 - 100 U/L [facility] Blood 01/28/2020 2:03 PM EDT 01/28/2020 2:07 PM EDT us Manjinder Staples MD LAB BLOOD ORDERABLES Final R esult Performing Organization Address [facility] Co de Phone Number [address] [address] documented in this encounter Visit Diagnoses Diagnosis [...] documented as of this encounter Care Teams Ortho/Prosthetic Aide Relationship Specialty Start Date End Date Erlin Pennington MD [address] [place] [address], [address] [place] [address] PCP - General 03/05/17 09/24/24 Marily Elkins NP [address] [place] [address] Historical LMR Provider 03/04/17 05/27/21 Iris Chamberlain MD [address] [place] [address], [address] [place] [address] Historical LMR Provider 03/04/17 05/27/21 Gilma Cornelius DO [address] [place] [address] Historical LMR Provider 03/04/17 2 Erlin Pennington MD [address] [place] [address], [address] [place] [address] [email or web address] Historical LMR Provider 03/04/17 5 Miriam Valladares MD [address] [place] [address] Historical LMR Provider 03/04/17 2 Artie Mayorga CNP [address] [place] [address], [address] [place] [address] [email or web address] Historical LMR Provider 03/04/17 documented as of this encounter Additional Source Comments The information contained in this document represents components of the legal health record. It is not the complete legal health record.[facility]
--- OUTSIDE RECORDS SUMMARY | 2025-01-14 10:06 | XMS_ITS | Encounter Summary ---
Author Organization [facility] Address [address] [address] Phone Care Team Providers Care Balance Wheel Arm Burnisher Name Role Phone Marily Elkins RESTAURANT ATTENDANT Unavailable [phone] Iris Chamberlain MD Unavailable Gilma Cornelius DO Unavailable [phone] Erlin Pennington MD Unavailable [phone] Miriam Valladares MD Unavailable [phone] Artie Mayorga CNP Unavailable Erlin Pennington MD Primary Care Provider [phone] Encounter Details Date Type Department Care Team (Late st Contact Info) Description 04/21/2018 Ancillary Orders Virtual Department [address] [place] [address] Gokul Stevens MD [address] [place] [address] [email or web address] Social History Tobacco Use Types Packs/Day Years [...] documented as of this encounter Care Teams Balance Wheel Arm Burnisher Relationship Specialty Start Date End Date Erlin Pennington MD [address] [place] [address], [address] [place] [address] PCP - General 03/05/17 09/24/24 Marily Elkins NP [address] [place] [address] Historical LMR Provider 03/04/17 05/27/21 Iris Chamberlain MD [address] [place] [address], [address] [address] Historical LMR Provider 03/04/17 05/27/21 Gilma Cornelius DO [address] [place] [address] Historical LMR Provider 03/04/17 2 Erlin Pennington MD [address] [place] [address] Historical LMR Provider 03/04/17 5 Miriam Valladares MD [address] [place] [address] Historical LMR Provider 03/04/17 2 Artie Mayorga CNP [address] [place] [address], [address] [place] [address] [email or web address] Historical LMR Provider 03/04/17 documented as of this encounter Additional Source Comments The information contained in this document represents components of the legal health record. It is not the complete legal health record.[facility]
--- OUTSIDE RECORDS SUMMARY | 2025-01-14 10:06 | XMS_ITS | Clinical Summary ---
Author Organization [facility] Address [address] [place] [address] Phone Care Team Providers Care Pipe Straightener Name Role Phone Tiffany Daria TUTTLE Primary Care Provider Encounters Date Type Department Care Team Description 11/24/2024 2:09 PM EDT - 11/24/2024 11:59 PM EDT Hospital Encounter [facility] Xray [address] [place] [address] Syncope and collapse Discharge Disposition: [...] inal Result from Last 3 Months Insurance [employer] [facility] Care Teams Pipe Straightener Relationship Specialty Start Date End Date Daria Allen FNP [address] [place] [phone] PCP - General Internal Medicine 11/24/24
--- OUTSIDE RECORDS SUMMARY | 2025-01-14 10:06 | XMS_ITS | Encounter Summary ---
Author Organization [facility] Address [address] [address] Phone Care Team Providers Care Cafeteria Director Name Role Phone Marily Elkins WORKFORCE PLANNER Unavailable [phone] Iris Chamberlain MD Unavailable Gilma Cornelius DO Unavailable Erlin Pennington MD Unavailable [phone] Miriam Valladares MD Unavailable [phone] Artie Mayorga CNP Unavailable Erlin Pennington MD Primary Care Provider Encounter Details Date Type Department Care Team (Latest Contact Info) Description 04/21/2018 Ancillary Orders Virtual Department 30 [place] [address] Gokul Stevens MD [address] [place] [address] [email or web address] Chronic pancreatitis, unspecified pancreatitis type Social History [...] right lobe of the liver. POS - [id number] Narrative 05/14/2018 12:10 PM EST US ABDOMEN [...] right lobe of the liver. POS - [id number] us Gokul Stevens MD IMG US ABDOMEN [...] documented as of this encounter Care Teams Cafeteria Director Relationship Specialty Start Date End Date Erlin Pennington MD [address] [place] [address], [address] [place] [address] PCP - General 03/05/17 09/24/24 Marily Elkins NP [address] [place] [address] Historical LMR Provider 03/04/17 05/27/21 Iris Chamberlain MD [address] [place] [address], [address] [place] [address] Historical LMR Provider 03/04/17 05/27/21 Gilma Cornelius DO 30 [place] [address] Historical LMR Provider 03/04/17 2 Erlin Pennington MD 22 [facility], [address] [place] [address] Historical LMR Provider 03/04/17 5 Miriam Valladares MD [address] [place] [address] Historical LMR Provider 03/04/17 2 Artie Mayorga CNP 22 [facility], [address] [place] [address] [email or web address] Historical LMR Provider 03/04/17 documented as of this encounter Additional Source Comments The information contained in this document represents components of the legal health record. It is not the complete legal health record.[facility]
--- OUTSIDE RECORDS SUMMARY | 2025-01-14 10:06 | XMS_ITS | Clinical Summary ---
Author Organization [facility] Address [address] [address] Phone Care Team Providers Care Production Technician Name Role Phone Unavailable Primary Care Provider Unavailabl e Allergies Active Allergy Reactions Criticality Noted Date Comments Bupropion Hcl Other (See Comments) Low 10/02/2016 Per pt report: Carrier out of it Cat's Claw (Uncaria Tomentosa) Hives 10/02/2016 Codeine Phosphate GI Upset Low 10/02/2016 Erythromycin Hives 10/02/2016 Fluoxetine Other (See Comments) Low 10/02/2016 Per pt report: Carrier out of it Sertraline Hcl Other (See Comments) Low 10/02/2016 Per pt report: Carrier out of it Sulfamethoxazole-Trime thoprim Nausea and/or [...] (06/26/2019 10:04 AM EST): Previously evaluated at [facility] with EUS, reportedly normal. Recommend follow up [...] this topic Medical Devices Implanted Type Area Mainspring Winder Device Identifier Shelf Expiration Date Model / [...] SEE NARRATIVE - 05/31/2020 9:47 AM EST [address] [address] Crm Analyst: Ely Carver MD MAILING MACHINE HELPER Cytology Report FINAL DIAGNOSIS A. PAP SMEAR [...] 52, 56, 58, 59, 66, 68) by [employer] Onclarity HR-HPV analysis. Clinical correlation is advised. This HPV test was performed at [facility], [address] [place] [address]. This test has been FDA approved for SurePath cervical cytology specimens. The accuracy and precision of this test for all other specimen sources has been verified in the Cytopathology Laboratory of the [facility] and has not been cleared or approved by the U.S. Food and Drug Administration. Clinical correlation is advised. CLINICAL HISTORY Date of Last Menstrual Period: 05-22-2020 Contraceptive History: IUD Other Clinical Conditions: Screening Pap SPECIMEN SOURCE A: PAP SMEAR (SUREPATH) CE Patient Name: KUMAR MADSEN : 1985 (Age: 34) Sex: F Institution: [facility] Location: [facility] Date of Collection: 05/26/2020 Date of Reported: 05/30/2020 15:22 Results to: Anita Hope MD us Anita Hope MD CYTOLOGY ORDERABLES Edited Re sult - Final SEE NARRATIVE from Last 3 Months or Most Recently Relevant to Health Maintenance [place] [address] [place] [address] OUT OF [facility] PPO [facility] OUT OF STATE PPO [facility] PPO [facility] PPO [facility] PPO Advance Directives For more information, please contact: [phone] (9AM - 5PM [facility], Saturday-Saturday) Documents on File Type Date Recorded Patient Technical Support Engineer Expl anation Healthcare Proxy 10/21/2018 [facility] Care Proxy (10/15/18) Additional Source Comments The information contained in this document represents components of the legal health record. It is not the complete legal health record.[facility]
--- OUTSIDE RECORDS SUMMARY | 2025-01-14 10:06 | XMS_ITS | Encounter Summary ---
Author Organization [facility] Address [facility] [employer] [address] [address] Phone Care Team Providers Care Deburring Machine Operator Name Role Phone Marily Elkins HAND DRAWER IN HELPER Unavailable [phone] Iris Chamberlain MD Unavailable Gilma Cornelius DO Unavailable [phone] Erlin Pennington MD Unavailable [phone] Miriam Valladares MD Unavailable [phone] Artie Mayorga CNP Unavailable Erlin Pennington MD Primary Care Provider [phone] Encounter Details Date Type Department Care Team (Late st Contact Info) Description 02/05/2020 Procedure Pass [facility], [address] [address] Social History Tobacco Use Types Packs/Day Years [...] documented as of this encounter Care Teams Deburring Machine Operator Relationship Specialty Start Date End Date Erlin Pennington MD [address] [place] [address] PCP - General 03/05/17 09/24/24 Marily Elkins, RONI [address] [place] [address] Historical LMR Provider 03/04/17 05/27/21 Iris Chamberlain MD [address] [place] [address], [facility] [address] [place] [address] Historical LMR Provider 03/04/17 05/27/21 Gilma Cornelius DO [address] [place] [address] Historical LMR Provider 03/04/17 2 Erlin Pennington MD [address] [place] [address] Historical LMR Provider 03/04/17 5 Miriam Valladares MD [address] [place] [address] Historical LMR Provider 03/04/17 2 Artie Mayorga CNP 22 [facility], [address] [place] [address] [email or web address] Historical LMR Provider 03/04/17 documented as of this encounter Additional Source Comments The information contained in this document represents components of the legal health record. It is not the complete legal health record.[facility]
--- OUTSIDE RECORDS SUMMARY | 2025-01-14 10:06 | XMS_ITS | Encounter Summary ---
Author Organization [facility] Address [address] [place] [address] Phone Care Team Providers Care Recording Studio Internship Name Role Phone Marily Elkins MUSIC PUBLICIST Unavailable [phone] Iris Chamberlain MD Unavailable Gilma Cornelius DO Unavailable [phone] Erlin Pennington MD Unavailable [phone] Miriam Valladares MD Unavailable [phone] Artie Mayorga CNP Unavailable [phone] Erlin Pennington MD Primary Care Provider [phone] Reason for Referral * MRI/CAT Scan - Closed Specialty Diagnoses / Procedures Referred By Contac t Referred To Contact Radiology Diagnoses Idiopathic chronic pancreatitis Procedures MRI Cholangiopancreatography (MRCP) Manjinder Staples MD Phone: tel: fax: [email or web address] Referral ID Status Reason Start Date Expiration Date Visits Re quested Visits Authorized [id number] Closed 02/04/2020 08/02/2020 1 1 Encounter Details Date Type Department Care Team (Latest Contact Info) Description 02/05/2020 Transcribe Orders [facility] Department [address] [place] [address] Manjinder Staples MD [address] [place] [address] [email or web address] Idiopathic chronic pancreatitis (Primary Dx) Social History [...] vessel. No other pathology is apparent. POS [id number] Narrative 02/19/2020 9:43 AM EDT TECHNIQUE: 1.5 [...] vessel. No other pathology is apparent. POS [id number] Manjinder Staples MD IMG MR ABDOMEN Final [...] documented as of this encounter Care Teams Recording Studio Internship Relationship Specialty Start Date End Date Erlin Pennington MD [address] [place] [address], [address] [place] [address] PCP - General 03/05/17 09/24/24 Marily Elkins NP 30 [place] [address] Historical LMR Provider 03/04/17 05/27/21 Iris Chamberlain MD 22 [facility], [address] [place] [address] Historical LMR Provider 03/04/17 05/27/21 Gilma Cornelius DO [address] [place] [address] Historical LMR Provider 03/04/17 2 Erlin Pennington MD [address] [place] [address], [address] [place] [address] Historical LMR Provider 03/04/17 5 Miriam Valladares MD [address] [place] [address] Historical LMR Provider 03/04/17 2 Artie Mayorga CNP 22 [facility], [address] [place] [address] Historical LMR Provider 03/04/17 documented as of this encounter Additional Source Comments The information contained in this document represents components of the legal health record. It is not the complete legal health record.[facility]
--- OUTSIDE RECORDS SUMMARY | 2025-01-14 10:06 | XMS_ITS | Encounter Summary ---
Author Organization [facility] Address [facility] [employer] [address] [address] Phone Care Team Providers Care Education Rn Name Role Phone Marily Elkins CIGARETTE FILTER INSPECTOR Unavailable [phone] Iris Chamberlain MD Unavailable Gilma Cornelius DO Unavailable [phone] Erlin Pennington MD Unavailable [phone] Miriam Valladares MD Unavailable [phone] Artie Mayorga CNP Unavailable Erlin Pennington MD Primary Care Provider Encounter Details Date Type Department Care Team (Latest Contact Info) Description 12/20/2017 Transcribe Orders [facility] Laboratory [address] [place] [address] Leydi Durham PA [address] [place] [address] Diagnosis unknown (Primary Dx) Social History Tobacco [...] EDT) LIPASE 60 16 - 63 U/L [facility] Blood 12/20/2017 5:11 PM EDT 12/20/2017 5:14 PM EDT us Leydi TERRY LAB BLOOD ORDERABLES Final Result [address] [address] * Comprehensive metabolic panel (12/20/2017 5:11 PM EDT) SODIUM 139 133 - 146 mmol/L [facility] POTASSIUM 3.8 3.3 - 5.1 mmol/L [facility] CHLORIDE 102 96 - 108 mmol/L [facility] CO2 24 21 - 35 mmol/L [facility] BUN 16 6 - 19 mg/dL [facility] CREATININE 0.90 0.5 - 1.5 mg/dL [facility] GLUCOSE 87 70 - 99 mg/dL [facility] ALBUMIN 4.2 3.9 - 4.8 g/dL [facility] TOTAL PROTEIN 7.1 6.5 - 8.0 g/dL [facility] CALCIUM 8.5 8.4 - 10.3 mg/dL [facility] ALKALINE PHOSPHATASE 51 39 - 117 U/L [facility] TOTAL BILIRUBIN 0.3 0.0 - 1.2 mg/dL [facility] AST 17 0 - 37 U/L [facility] ALT 12 0 - 40 U/L [facility] GLOBULIN 2.9 1 - 4.8 g/dL [facility] EGFR 83 >59 mL/min/1.7 3m2 [facility] Comment:If patient is black, multiply result by 1.159. Estimated glomerular filtration rate calculated using the CKD-EPI equation. ANION GAP 17 10 - 20 mmol/L [facility] Blood 12/20/2017 5:11 PM EDT 12/20/2017 5:14 PM EDT us Leydi TERRY LAB BLOOD ORDERABLES Final Result [address] [place] [address] * (ABNORMAL) CBC and differential (12/20/2017 5:11 PM EDT) WBC 6.62 3.40 - 11.20 K/uL [facility] RBC 4.36 3.80 - 4.80 M/uL [facility] HGB 14.3 12.0 - 15.0 g/dL [facility] HCT 40.6 36.0 - 46.0 % [facility] PLT 252 130 - 400 K/uL [facility] MCV 93.1 79.0 - 98.0 fL [facility] MCH 32.8 27.0 - 34.8 pg [facility] MCHC 35.2 31.5 - 36.0 g/dL [facility] RDW 12.2 10.8 - 14.6 % [facility] MPV 10.5 9.4 - 12.4 fl [facility] NRBC 0.00 /100 WBCs [facility] ABSOLUTE NRBC 0.00 K/uL [facility] DIFF METHOD Auto [facility] NEUTS 47.5 45.30 - 77.70 % [facility] LYMPHS 42.7(H) 12.30 - 39.70 % [facility] MONOS 5.3 4.10 - 12.80 % [facility] EOS 3.2 0 - 7.2 % [facility] BASOS 1.1 0 - 2.80 % [facility] Granulocytes, immature (%) 0.2 0.0 - 0.9 % [facility] ABSOLUTE NEUTS 3.15 1.40 - 7.70 K/uL [facility] ABSOLUTE LYMPHS 2.83 0.60 - 3.20 K/uL [facility] ABSOLUTE MONOS 0.35 0.11 - 0.59 K/uL [facility] ABSOLUTE EOS 0.21 0.01 - 0.50 K/uL [facility] ABSOLUTE BASOS 0.07 0.00 - 0.08 K/uL [facility] Granulocytes, immature 0.01 0.00 - 0.05 K/uL [facility] Blood 12/20/2017 5:11 PM EDT 12/20/2017 5:14 PM EDT us Leydi TERRY LAB BLOOD ORDERABLES Final Result [address] [address] documented in this encounter Visit Diagnoses Diagnosis Diagnosis unknown- Primary documented in this encounter Additional Health Concerns Infection Onset Date Last Indicated Resolved Time CoV-Exposed Comment:Recent close contact 05/30/2020 05/30/2020 06/13/2020 1:24 AM EST CoV-Presumed 10/01/2021 10/01/2021 10/22/2021 1:21 AM EDT documented as of this encounter Care Teams Education Rn Relationship Specialty Start Date End Date Erlin Pennington MD [address] [place] [address], [address] [address] PCP - General 03/05/17 09/24/24 Marily Elkins NP [address] [place] [address] Historical LMR Provider 03/04/17 05/27/21 Iris Chamberlain MD [address] [place] [address], [address] [address] Historical LMR Provider 03/04/17 05/27/21 Gilma Cornelius DO [address] [place] [address] Historical LMR Provider 03/04/17 2 Erlin Pennington MD [address] [place] [address] Historical LMR Provider 03/04/17 5 Miriam Valladares MD [address] [place] [address] Historical LMR Provider 03/04/17 2 Artie Mayorga CNP 22 [facility], [address] [place] [address] [email or web address] Historical LMR Provider 03/04/17 documented as of this encounter Additional Source Comments The information contained in this document represents components of the legal health record. It is not the complete legal health record.[facility]
--- OUTSIDE RECORDS SUMMARY | 2025-01-14 10:07 | XMS_ITS | Encounter Summary ---
Author Organization [facility] Address [facility] [employer] [address] [address] Phone Care Team Providers Care Nailing Machine Feeder Name Role Phone Marily Elkins FILTER CHANGER Unavailable [phone] Iris Chamberlain MD Unavailable Gilma Cornelius DO Unavailable [phone] Erlin Pennington MD Unavailable [phone] Miriam Valladares MD Unavailable [phone] Artie Mayorga CNP Unavailable [phone] Erlin Pennington MD Primary Care Provider Encounter Details Date Type Department Care Team (Latest Contact Info) Description 07/23/2019 Transcribe Orders [facility] Laboratory [address] [id number] Leydi Durham PA [address] [place] [address] Acute pancreatitis, unspecified complication status, unspecified pancreatitis [...] EST) WBC 8.02 4.00 - 11.00 K/uL [facility] Comment:Note Reference Range updates to all CBC and Differential results. RBC 4.64 3.72 - 5.30 M/uL [facility] HGB 14.8 10.6 - 15.5 g/dL [facility] Comment:Note updated Referen ce Ranges for all CBC and Differential results. HCT 43.3 32.0 - 45.0 % [facility] PLT 248 140 - 430 K/uL [facility] MCV 93.3 78.0 - 97.0 fL [facility] MCH 31.9 25.0 - 33.0 pg [facility] MCHC 34.2 32.0 - 36.0 g/dL [facility] RDW 12.6 11.0 - 16.0 % [facility] MPV 10.5 8.4 - 12.8 fl [facility] NRBC 0.00 0 /100 WBCs [facility] ABSOLUTE NRBC 0.00 0 K/uL [facility] Blood 07/23/2019 11:5 6 AM EST 07/23/2019 12:01 PM EST us Leydi TERRY LAB BLOOD ORDERABLES Final Result Performing Organization Address City/State/[facility] Co de Phone Number [address] [address] * (ABNORMAL) IgG subclasses (07/23/2019 11:56 AM EST) IGG 1 509 341 - 894 mg/dL [facility] [address] IGG 2 598 171 - 632 mg/dl [facility]PATH [address] IGG 3 88.3 18.4 - 106.0 mg/dl [facility]PATH [address] IGG 4 212.0(H) 2.4 - 121.0 mg/dl [facility] [address] TOTAL IGG 1,360 767 - 1,590 mg/dl [facility] [address] Blood 07/23/2019 11:5 6 AM EST 07/23/2019 12:01 PM EST Leydi TERRY LAB BLOOD ORDERABLES Final Result Performing Organization Address City/[facility] Co de Phone Number [facility] MED/[address] [place] [address] * Lipase (07/23/2019 11:56 AM EST) LIPASE 47 16 - 63 U/L [facility] Blood 07/23/2019 11:5 6 AM EST 07/23/2019 12:01 PM EST Leydi TERRY LAB BLOOD ORDERABLES Final Result Performing Organization Address [facility] Phone Number [address] [address] documented in this encounter Visit Diagnoses Diagnosis [...] documented as of this encounter Care Teams Nailing Machine Feeder Relationship Specialty Start Date End Date Erlin Pennington MD [address] [place] [address], [address] [place] [address] PCP - General 03/05/17 09/24/24 Marily Elkins NP [address] [place] [address] Historical LMR Provider 03/04/17 05/27/21 Iris Chamberlain MD 22 [facility], [address] [place] [address] Historical LMR Provider 03/04/17 05/27/21 Gilma Cornelius DO [address] [place] [address] Historical LMR Provider 03/04/17 2 Erlin Pennington MD [address] [place] [address], [address] [place] [address] [email or web address] Historical LMR Provider 03/04/17 5 Miriam Valladares MD [address] [place] [address] Historical LMR Provider 03/04/17 2 Artie Mayorga CNP [address] [place] [place] [address], [address] [place] [address] [email or web address] Historical LMR Provider 03/04/17 documented as of this encounter Additional Source Comments The information contained in this document represents components of the legal health record. It is not the complete legal health record.[facility]
--- OUTSIDE RECORDS SUMMARY | 2025-01-14 10:07 | XMS_ITS | Encounter Summary ---
Author Organization [facility] Address [facility] [address] [address] Phone Care Team Providers Care Data Librarian Name Role Phone Marily Elkins HAT FINISHER Unavailable [phone] Iris Chamberlain MD Unavailable Gilma Cornelius DO Unavailable [phone] Erlin Pennington MD Unavailable [phone] Miriam Valladares MD Unavailable [phone] Artie Mayorga CNP Unavailable Erlin Pennington MD Primary Care Provider Encounter Details Date Type Department Care Team (Latest Contact Info) Description 09/24/2018 Transcribe Orders [facility] Specimen Processing [address] [place] [address] Rashmi Gordon PA-C [address], [address] [place] [address] [email or web address] Acute pancreatitis, unspecified complication status, unspecified pancreatitis [...] Pancreatic Elastase, Stool (09/24/2018 6:52 PM EDT) [facility] ST PANCREA ELASTASE 480 mcg/g DORADO REFERRAL Comment: (NOTE) Adult and Pediatric Reference Ranges for Pancreatic Elastase-1: Normal: >200 mcg/g Moderate Pancreatic Insufficiency: 100-200 mcg/g Severe Pancreatic Insufficiency: <100 mcg/g Elastase-1 (E-1) assay results are expressed in mcg/g, which represent mcg E1/g feces. It is not necessary to interrupt enzyme substitution therapy. Test Performed by: [facility] [place] [address] [place] [address] Stool (Stool) 09/24/2018 6:5 2 PM EDT 09/24/2018 6:54 PM EDT Rashmi Gordon PA-C BODY FLUIDS AND STOOLS ORDERABL ES Final Result UNION REFERRAL documented in this encounter Visit Diagnoses Diagnosis Acute pancreatitis, unspecified complication status, unspecified pancreatitis type- Primary documented in this encounter Additional Health Concerns Infection Onset Date Last Indicated Resolved Time CoV-Exposed Comment:Recent close contact 05/30/2020 05/30/2020 06/13/2020 1:24 AM EST CoV-Presumed 10/01/2021 10/01/2021 10/22/2021 1:21 AM EDT documented as of this encounter Care Teams Data Librarian Relationship Specialty Start Date End Date Erlin Pennington MD [address] [place] [address], [address] [place] [address] PCP - General 03/05/17 09/24/24 Marily Elkins NP [address] [place] [address] Historical LMR Provider 03/04/17 05/27/21 Iris Chamberlain MD [address], [address] [place] [address] Historical LMR Provider 03/04/17 05/27/21 Gilma Cornelius DO [address] [place] [id number] Historical LMR Provider 03/04/17 2 Erlin Pennington MD [address] [place] [address], [address] [place] [address] [email or web address] Historical LMR Provider 03/04/17 5 Miriam Valladares MD [address] [place] [id number] Historical LMR Provider 03/04/17 2 Artie Mayorga CNP [address] [place] [address], [address] [place] [address] [email or web address] Historical LMR Provider 03/04/17 documented as of this encounter Additional Source Comments The information contained in this document represents components of the legal health record. It is not the complete legal health record.[facility]
[2025-01-14 10:47] LABS: Vitamin B12 458 pg/mL (200-900)
[2025-01-15 05:09] LABS: Follicle Stimulating Hormone 4.7 mIU/mL
[2025-01-20 00:38] LABS: VITAMIN D (1,25 OH) D3 40 pg/mL; Vit D (1,25-Dihydroxy) Total 40 pg/mL (18-72); Vitamin D (1,25 OH) D2 <8 pg/mL
== END 2025-01-14 09:09 | disposition home or self-care (01) ==
LOC: HO.LAB 09:08
PROVIDERS: PCP Nurse Practitioner Family; Visit Provider Nurse Practitioner Family
DX: R63.5 Abnormal weight gain (principal); M79.673 Pain in unspecified foot; E55.9 Vitamin D deficiency, unspecified; N95.1 Menopausal and female climacteric states
CPT/HCPCS: 36415; 82533; 82607; 82652; 82670; 82681; 83001; 83002; 84443

== ENCOUNTER 2025-02-15 10:44 | Outpatient (AMB) | payer OTHER, SELFPAY ==
--- NOTE | 2025-02-15 10:56 | A.OFFPC_ITS ---
Vital Signs 02/15/25 11:01 Height 5 ft 4.5 in Weight 167 lb 4 oz BMI 28.3 BP 110/66 Blood Pressure Location Lt brachial Position Sitting Respiration 12 Pulse 68 Pulse Source Pulse Oximeter Temp 97.2 F Temp Source Oral Pulse Oximetry (%) 98 Oxygen Delivery Method Room Air Intake Visit Reasons: New Patient Pe Intake Note: New patient to establish care and cpe. Quality Associate Required: No Allergies erythromycin base (ERYTHROMYCIN BASE) Allergy (Unknown, Verified 02/15/25 11:23) HIVES sulfamethoxazole (From BACTRIM) Adverse Reaction (Intermediate, Verified 02/15/25 11:23) STOMACH UPSET trimethoprim (From BACTRIM) Adverse Reaction (Intermediate, Verified 02/15/25 11:23) STOMACH UPSET Medication List - Last Reviewed 02/15/25 by Jennifer Owens MA gabapentin 200 mg PO DAILY Tobacco use date assessed: 02/15/25 Dental Screening Dental Screen Date: 02/15/25 Did you have a dental visit in the last 12 months?: Yes Did you have a dental problem in the last 6 months where you did not have access to dental care?: No Was dental information given to patient?: Patient has dentist HPI HPI Comments History of Present Illness Details 39 y/o F with POTs, seasonal allergies, Social: works at [employer] in [employer]; has 1 dtr 19. . 1 step dtr 12, step son 15. Surgery: None Familyhx: MGP esoph ca; PGF bladder ca. Both w/ etoh. Health Maintenance tdap declined Flu declined Pap 2023; [facility] Mammo 10/2024 Specialist Cards in the past Podiatry in [place] [facility] History of Present Illness The patient is a 39-year-old female presenting to establish care & for CPE Previous PCP [facility], no records Syncope d/t POTs - Episode during snow shoveling in . - Experienced tachycardia and temporary vision loss. - Managed w/ salt and increased h20 inta ke. No longer active w/ cards Idiopathic foot pain, biatl - Onset in July, full foot involvement after resting. Severe pain in bilat feet, started in July 2024. Improved since onset. Saw Podiatry Xrays done Feet are stiff after sitting for prolonged period Put on Gabapentin but this has not helped w/ mobility; has helped w/ pain. Will start PT next week Has some swelling in hands while walking Fhx Paternal great grandmother had rheumatoid arthriti Lump in back L side - Noted by massage therapist, imaging in conclusive. - Persistent, no symptoms indicative of malignancy. - Lump in back, had MRI and US in the pa [facility]; Done at [facility]. Will get records and review Seasonal allergies: - Causes sinus infections when exposed t o wet leaves. Family History - Great-grandmother (paternal) with rheu matoid arthritis. - Maternal grandfather with esophageal c ancer. - Paternal grandfather with bladder canc er. Social History - with one biological child, age 19. - Stepfamily: stepdaughter age 12, steps on age 15. Health Maintenance - Pap smear completed last year. - Mammogram was performed in October. - IUD in place, due for replacement next year. - Declined tetanus and flu vaccinations. Review of Systems - General: Reports feeling generally hea lthy. - Cardiovascular: Denies recent fainting episodes. - Musculoskeletal: Reports foot pain, pr edominantly post-rest. - Respiratory: Denies symptoms. - Neurological: Reports only episode of syncope in June. - Skin: Reports poison aisha occurrences. - ENT: Reports sinus infections linked t o allergies. - Genitourinary: Denies any remarkable s ymptoms. Physical Exam General: Well developed, well nourished, in no acute distress. Appears stated age. Head: Normocephalic, atraumatic. Eyes: Pupils are equal, round and reactive to light and accommodation. Conjunctivae are clear. Scleras nonicteric bilat. Vision grossly normal. Ears: TMs clear AU, EACS WNL Nose: Patent, without discharge. Neck: No carotid bruit bilat. Supple, no adenopathy or thyromegaly. Breast: Edu on SBE Lungs: Clear to auscultation bilaterally. No rales, rhonchi or wheeze noted. Good air flow in all echols. Heart: Regular rate and rhythm. No murmurs, click, rubs or gallops are noted. Abdomen: Bowel sounds present in all quadrants. The abdomen is soft, nontender, with no masses or organomegaly noted. No hernias are noted. : Deferred. Reviewed CHRYSTAL & recommendations for routine [facility] [employer]PER Pulses: Peripheral pulses are equal and palpable bilaterally. Extremities: No clubbing, cyanosis nor edema is noted. Some swelling in hands when walking a lot. Neurologic: Gait and station normal. Cranial Nerves 2-12 intact. Motor strength grossly symmetrical and intact. No sensory loss. Balance normal. Skin: No rashes, ulcers, or lesions noted. Turgor is good. Skin color is good. Hair and nails are without abnormalities. Some poison aisha noted, drying out. Psych: Normal eye contact, affect and mood appropriate, and normal interactions. Patient is alert and appropriate to context. Results -Pending Discussion Notes I discussed the patient's concerns regarding recurrent syncope, unexplained foot pain, a back lump, and seasonal allergies. For syncope management, I confirmed a history of good fluid and salt intake and discussed the June episode related to snow shoveling, emphasizing situational awareness to prevent injury. The idiopathic foot pain, which is relieved to a degree with gabapentin, will be re- evaluated following physical therapy. For the back lump, previous imaging results from [facility] will be reviewed, and decisions on further evaluation will be made according to those findings. We also addressed persistent seasonal allergies, proposing avoidance of known triggers and appropriate sinus infection management. We discussed laboratory tests, including inflammatory markers. Assurance was given for medical follow-up post-therapy and subsequent performance instructor consultation. Patient was given time to ask questions. All questions were answered to their satisfaction. Assessment and Plan 1. POTs - Maintain hydration, dietary salt; obse rve for future episodes. 2. Idiopathic foot pain - Begin physical therapy; evaluate effec tiveness post-completion. - Check labs to r/o systemic cause 3. Lump in back, Left - Review prior imaging; plan further chela ging if needed. 4. Seasonal allergies - Avoid triggers; manage with antihistam adeola if needed. Patient Instructions - Keep hydrated and maintain dietary yazmin t intake. - Start physical therapy next week as pl anned. - Reassess the foot pain after completed therapy. - Avoid wet leaves and wear masks when r aking to prevent sinus issues. - Review imaging results for back lump; notify of any changes or new symptoms. - Return in a few months to fu on foot p ain and lump - consider additional imaging after review of previous records Consent Patient consented to lab work for inflammatory markers, understanding it helps guide the investigation of idiopathic foot pain. Risks, including blood draw- related faintness, were discussed and acknowledged. Consent was obtained during this visit in person. Patient was informed and verbally consented to the use of an ambient scribe for clinic note documentation during this visit. An additional 30 minutes was spent addressing the problem(s) noted at todays visit. This includes time spent before the visit reviewing the chart, time spent during the visit, and time spent after the visit on documentation reviewing laboratory results, diagnostic imaging, medications, performing a medically necessary evaluation, counseling on diagnoses, care coordination, ordering appropriate tests, ordering appropriate medications, review of tests performed by other providers, reporting test results with the patient, communication with other healthcare providers. [facility] Medical History (Updated 02/15/25 @ 11:51 [facility] Allergic Low BP Palpitations Sinusitis Syncope Surgical History (Updated 02/15/25 @ 11:05 by Jennifer Owens MA) No pertinent past surgical history Family History (Updated 02/15/25 @ 11:07 by Jennifer Owens MA) Maternal Grandmother HTN (hypertension) Maternal Grandfather Esophageal cancer Paternal Grandfather Bladder cancer Social History (Updated 02/15/25 @ 11:04 by Jennifer Owens MA) Household Members: Spouse and Children Both parents involved: No Caregiver staying overnight: No Housing: House Are you 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 1. Little interest or pleasure in doing things: not at all 2. Feeling down, depressed, or hopeless: not at all 3. Trouble falling or staying asleep, or sleeping too much: not at all 4. Feeling tired or having little energy: not at all 5. Poor appetite or overeating: several days 6. Feeling bad about yourself - or that you are a failure or have let yourself or your family down: not at all 7. Trouble concentrating on things, such as reading the newspaper or watching television: not at all 8. Moving or speaking so slowly that other people could have noticed. Or the opposite - being so fidgety or restless that you have been moving around a lot more than usual: not at all 9. Thoughts that you would be better off or of hurting yourself in some way: not at all Total score: 1 Depression Screening Interpretation: Negative Depression Screening Done: Yes 44872 - PHQ-9 Billing: Yes Source: Developed by Drs. Elie Minaya, Sherri Durant, Adam Alba and colleagues, with an educational mara from [employer]. Thrive Questionnaire Date Thrive assessed: 02/15/25 I am a: Patient What is your living situation today?: I have a steady place to live Within the past 12 months, did the food you bought not last and you didn't have the money to get more?: Never true Within the past 12 months, did you worry whether your food would run out before you got money to buy more?: Never true Do you have trouble paying for medicines?: No Do you have trouble getting transportation to medical appointments?: No Do you have trouble paying your heating and electricity bill?: No Do you have trouble taking care of your child, family member or friend?: No Do you have trouble with day-to-day activities such as bathing, preparing meals, shopping, managing finances, etc.?: No Are you currently unemployed and looking for a job?: No Are you interested in more education?: No Please select the resources that you would like help with: None Currently or been in a relationship where the following occur: No concerns repo rted THRIVE Score: 0 AUDIT C Alcohol Use Questionnaire (AUDIT-C) 1. How often do you have a drink containing alcohol?: Monthly or less 2. How many drinks containing alcohol do you have on a typical day when you are drinking?: 1 or 2 3. How often do you have six or more drinks on one occasion?: Never Total Score: 1 Score Reviewed/Action Taken: Yes YENI-7 AMB Questionnaire YENI-7 Date YENI - 7 assessed: 02/15/25 Feeling nervous, anxious, or on edge: 0 = Not at all Not being able to stop or control worryin = Several days Worrying too much about different things: 1 = Several days Trouble relaxin = Not at all Being so restless that it is hard to sit still: 0 = Not at all Becoming easily annoyed or irritable: 1 = Several days Feeling afraid as if something awful might happen: 0 = Not at all Total YENI-7 score (0-4 normal; 5-9 mild; 10-14 moderate; 15-21 severe): 3 Source: Developed by Drs. Elie Minaya, Sherri Durant, Adam Alba and colleagues, with an educational mara from [employer]. YENI-7 Assessment Billing YENI-7 Assessment Tool: YENI-7 Assessment 50093 Physical exam (Primary Care) Vital Signs: Last Vital Signs Temp 97.2 F 02/15/25 11:01 Pulse 68 02/15/25 11:01 Resp 12 02/15/25 11:01 BP 110/66 02/15/25 11:01 Pulse Ox 98 02/15/25 11:01 Oxygen Delivery Method Room Air 02/15/25 11:01 BMI result Body Mass Index 28.3 Tobacco/Smoking Status: Tobacco use Status Tobacco use date assessed 02/15/25 02/15/25 11:03 Patient Tobacco Use Status Never used Tobacco 02/15/25 11:04 e-Cigarette/Vaping Use Never Used 02/15/25 11:04 PHQ-9: PHQ-9 Score PHQ-9: Total score 1 02/15/25 11:03 Depression Screening Interpretation: Negative Thrive Assessment: Date of Thrive Assessment Date Thrive assessed 02/15/25 02/15/25 11:03 Currently or been in a relationship where the following occur: No concerns reported Coding Level of Care Code New Pt Level 3 (75471) New Pt Prev Care 40-64y(65589) Diagnoses Encounter to establish care with new provider Z76.89 POTS (postural orthostatic tachycardia syndrome) G90.A Pain in joints of both feet M25.571; M25.572 Joint pain location: foot Laterality: bilateral Laboratory exam ordered as part of routine general medical examination Z00.00 IUD (intrauterine device) in place Z97.5 History of Papanicolaou smear of cervix Z92.89 Lump of skin of back R22.2 Seasonal allergies J30.2 Encounter for general adult medical examination without abnormal findings Z00. Additional Codes YENI-7 Assessment Billing - YENI-7 Assessment Tool: YENI-7 Assessment 47206 ([id number]) PHQ-9 - 15139 - PHQ-9 Billing: Yes ([id number]) Assessment & Plan Assessment & Plan (1) Encounter to establish care with new provider: Code(s): Z76.89 - Persons encountering health services in other specified circumstances (2) POTS (postural orthostatic tachycardia syndrome): Code(s): G90.A - Postural orthostatic tachycardia syndrome [POTS] Category: Medical (3) Joint pain: Code(s): M25.50 - Pain in unspecified joint Category: Medical Qualifiers: Joint pain location: foot Laterality: bilateral Qualified Code(s): M25.571 - Pain in right ankle and joints of right foot; M25.572 - Pain in left ankle and joints of left foot (4) Laboratory exam ordered as part of routine general medical examination: Code(s): Z00.00 - Encounter for general adult medical examination without abnormal findings Category: Medical (5) IUD (intrauterine device) in place: Code(s): Z97.5 - Presence of (intrauterine) contraceptive device Category: Medical (6) History of Papanicolaou smear of cervix: Onset Date: ~2023 Code(s): Z92.89 - Personal history of other medical treatment Category: Medical (7) Lump of skin of back: Code(s): R22.2 - Localized swelling, mass and lump, trunk Category: Medical (8) Seasonal allergies: Code(s): J30.2 - Other seasonal allergic rhinitis Category: Medical (9) Encounter for general adult medical examination without abnormal findings: Onset Date: ~02/15/25 Code(s): Z00.00 - Encounter for general adult medical examination without abnormal findings Category: Medical Plan . Orders: Orders Microalbumin, Random (w Creat) Today M25.50 - Pain in unspecified joint, Z00.00 - Encounter for general adult medical examination without abnormal findings Vitamin B12 and Folate Today M25.50 - Pain in unspecified joint, Z00.00 - Encounter for general adult medical examination without abnormal findings C Reactive Protein Today M25.50 - Pain in unspecified joint, Z00.00 - Encounter for general adult medical examination without abnormal findings Anti DNA DS Antibody Today M25.50 - Pain in unspecified joint, Z00.00 - Encounter for general adult medical examination without abnormal findings Complement C3 Today M25.50 - Pain in unspecified joint, Z00.00 - Encounter for general adult medical examination without abnormal findings Complement C4 Today M25.50 - Pain in unspecified joint, Z00.00 - Encounter for general adult medical examination without abnormal findings Complete Blood Count no Diff Today M25.50 - Pain in unspecified joint, Z00.00 - Encounter for general adult medical examination without abnormal findings Comprehensive Met. Panel Today M25.50 - Pain in unspecified joint, Z00.00 - Encounter for general adult medical examination without abnormal findings Hemoglobin A1c Today M25.50 - Pain in unspecified joint, Z00.00 - Encounter for general adult medical examination without abnormal findings Lipid Panel Today M25.50 - Pain in unspecified joint, Z00.00 - Encounter for general adult medical examination without abnormal findings TSH reflex Free T4 Today M25.50 - Pain in unspecified joint, Z00.00 - Encounter for general adult medical examination without abnormal findings Vitamin D 25-OH Total Today M25.50 - Pain in unspecified joint, Z00.00 - Encounter for general adult medical examination without abnormal findings Erythrocyte Sedimentation Rate Today M25.50 - Pain in unspecified joint, Z00.00 - Encounter for general adult medical examination without abnormal findings Rheumatoid Factor Today M25.50 - Pain in unspecified joint, Z00.00 - Encounter for general adult medical examination without abnormal findings IRIS Reflex Titer and Pattern Today M25.50 - Pain in unspecified joint, Z00.00 - Encounter for general adult medical examination without abnormal findings Sm Sm/[employer]UAL [employer]IST[employer] Antibodies Today M25.50 - Pain in unspecified joint, Z00.00 - Encounter for general adult medical examination without abnormal findings ECG Tilt Table Test 09/21/24 M25.50 - Pain in unspecified joint, R55 - Syncope and collapse, Z00.00 - Encounter for general adult medical examination without abnormal findings Patient Instructions: Walk-In Care (Urgent Care): We Make it Easy Walk-in for urgent medical issues such as: ? Seasonal Allergies ? Insect Bites ? Cough ? Diarrhea ? Acute Asthma Attacks ? Back, Knee or Joint Pain ? Ear Infection ? Fever without a Rash ? Headaches ? Nausea ? [place] Eye, Rash or Skin Irritation ? Sore Throat ? Sports Physicals ? Vomiting Most insurances are accepted. Patients do not need to be part of the [facility] to seek care at the walk-in clinic. Locations [address] [place] [address] Open Saturday through Saturday 8am-5pm *Hours may vary due to staffing availability. To confirm Walk-In Care hours please call. [address] [place] [address] ? [phone] [facility] Walk-In Care in [place] provides services to ages 18 and over. Open Saturday-Saturday: 7 a.m. to 5 p.m. and Saturday: 9 a.m. to 3 p.m.* *Hours may vary due to staffing availability. To confirm Walk-In Care hours in [place], please call [phone]. [address] [place] [address] ? [phone] [facility] Walk-In Care in [place] provides services to ages 12 and over. Open Saturday-Saturday: 8 a.m. to 5 p.m. Hours may vary due to staffing availability. To confirm Walk-In Care hours in [place], please call [phone]. LABORATORY SERVICES: [facility] Lab ? Primary Location [address] [place] [address] Saturday through Saturday 6:00 AM ? 5:00 PM Saturday 7:00 AM ? 11:00 AM* [phone] The [facility] Lab is centrally located near the front entrance of the [facility] for easy outpatient access. Convenient parking is provided for outpatients. *Hours may vary due to staffing availability. To confirm Laboratory hours for any location, please call [phone]. Offsite Location For your convenience, we offer offsite laboratory draw stations at the following locations: [address] [place] [address] ? [facility] [address], [address] Saturday through Saturday 7:30 AM ? 1:00 PM* [phone] *Hours may vary due to staffing availability. To confirm Laboratory hours for any location, please call [phone]. o[place] ? [address] Saturday through Saturday 6:00 AM ? 3:30 PM* Saturday 6:30 AM ? 3 PM* [phone] *Hours may vary due to staffing availability. To confirm Laboratory hours for any location, please call [phone]. [address] [facility] Saturday through Saturday 7:30 AM ? 4:00 PM* [phone] *Hours may vary due to staffing availability. To confirm Laboratory hours for any location, please call [phone]. [address] [facility] Saturday through 9:00 AM ? 4:00 PM* *Hours may vary due to staffing availability. To confirm Laboratory hours for any location, please call [phone]. Appointments are not necessary. Walk-ins are welcome. Like all the departments throughout the [facility], our Lab undergoes frequent reviews to ensure the quality and accuracy of test results, and our staff takes special pride in its status as a nationally accredited facility. Patient Portal: [facility] ONE PATIENT. ONE RECORD. BETTER CARE. [facility] has a fully integrated, cutting-edge mobile electronic health information system that has revolutionized the way we care for our patients and manage our organization. This system improves communication and coordination enabling us to provide safe, higher-quality care, and an overall positive experience for staff and patients. Our first priority, as always, is to deliver the highest quality care possible. The system is running in the background supporting that priority. This portal is for all [facility] services and practices. If you are experiencing any technical difficulties with enrolling or logging into the Patient Portal please complete the [facility] Patient Portal Technical Support Form. [facility] now offers a new secure on-line interactive tool for patients to review their health information ? ?Patient Portal. This interactive web portal will enable patients and their families to take an active role in their care by providing easy, secure access to their health information via the internet. The Patient Portal provides patients with instant access to their health information, including laboratory results, medications, allergies, demographic information, visit history, and more. In addition to managing their own care, parents and health care proxies with authorized consent will appreciate the ability to access the records of those individuals for whom they provide care. Please note: if you wish to gain access (Proxy) to another patient?s portal, you will be required to come to the Medical Records Department in person at [facility]. Both the patient giving proxy access and the proxy will need to provide photo identification and complete the appropriate authorization. The Patient Portal also allows track their appointments online. The [facility] Patient Portal also saves patients time by allowing them to submit updates to their demographic and contact information prior to their visits. Portal email notifications will also alert patients to any new activity on their portal, such as test results and new appointments. In order to initially enroll in the [facility] Patient Portal, you will need to enter some required information including the following: * your [facility] Medical Record number * your personal home email address * name * date of Please note: In order to enroll in the [facility] Patient Portal, we need to have your email address on file in your electronic medical record. ?The email address needs to be specific for one person (yourself) in order for your Portal enrollment to be successful. ?You can update your email address in person with our Registration staff when you are registering for a hospital visit. ?Otherwise, you will need to come to the Health Information Management (Medical Records) Department at [facility]. ?We are open from Saturday ? Saturday from 7:30 a.m. ? 4:30 p.m. ?You will be required to present a photo id. Once you have successfully enrolled in the Patient Portal, you will receive a one-time user id and password for the Portal, sent to your email address. ?This will allow you to log into the Patient Portal within 99 hrs and reset your own logon id and password, and define personal security questions. ?Once your permanent login and password have been set, you can log into the [facility] Patient Portal at any time via the blue button above or from the Portal Logon button on any page of the [facility] website. [facility] and [facility] encourage all of our patients to enroll in Patient Portal as it presents a valuable opportunity for patients and their families to actively participate in their care and stay healthy Welcome to [facility]. ?We look forward to working with you. Health screenings for women You should visit your health care provider from time to time, even if you are healthy. The purpose of these visits is to: Screen for medical issues Assess your risk for future medical problems Encourage a healthy lifestyle Update vaccinations and other preventive care services Help you get to know your provider in case of an illness Information Even if you feel fine, you should still see your provider for regular checkups. These visits can help you avoid problems in the future. For example, the only way to find out if you have high blood pressure is to have it checked regularly. High blood sugar and high cholesterol levels also may not have any symptoms in the early stages. A simple blood test can check for these conditions. There are specific times when you should see your provider or receive specific health screenings. The [place] Preventive Services Task Force publishes a list of recommended screenings. Below are screening guidelines for women ages 18 to 39. BLOOD PRESSURE SCREENING Your blood pressure should be checked at least once every 3 to 5 years if: Your blood pressure is in the normal range (top number less than 120 mm Hg and bottom number less than 80 mm Hg) You don't have risk factors for high blood pressure Ask your provider if you need your blood pressure checked more often if: The top number is 120 to 129 mm Hg or the bottom number is 70 to 79 mm Hg You have diabetes, heart disease, kidney problems, are overweight, or have certain other health conditions You have a first-degree relative with high blood pressure You are Black You had high blood pressure during a If the top number is 130 mm Hg or greater or the bottom number is 80 mm Hg or greater, this is considered stage 1 hypertension. Schedule an appointment with your provider to learn how you can reduce your blood pressure. Watch for blood pressure screenings in your area. Ask your provider if you can stop in to have your blood pressure checked. BREAST CANCER SCREENING Experts do not agree about the benefits of breast self-exams in finding breast cancer or saving lives. Talk to your provider about what is best for you. A screening mammogram is not recommended for most women under age 40. Your provider may discuss and recommend mammograms, MRI scans, or ultrasounds if you have an increased risk for breast cancer, such as: A mother or sister who had breast cancer at a young age (most often starting screening earlier than the age the close relative was diagnosed) You carry a high-risk genetic marker CERVICAL CANCER SCREENING Cervical cancer screening should start at age 21 years unless your provider advises otherwise. After the first test: Women ages 21 through 29 should have a Pap test every 3 years. Exoprts do not agree on whether HPV testing is recommended for this age group. Women ages 30 through 65 should be screened with either a Pap test every 3 years or the HPV test every 5 years or both tests every 5 years (called cotesting ). Women who have been treated for precancer (cervical dysplasia) should continue to have Pap tests for 20 years after treatment or until age 65, whichever is longer. If you have had your uterus and cervix removed (total hysterectomy), and you have not been diagnosed with cervical cancer or precancer (high grade cervical neoplasia), you do not need cervical cancer screening. CHOLESTEROL SCREENING Cholesterol screening should begin at: Age 45 for women with no known risk factors for coronary heart disease Age 20 for women with known risk factors for coronary heart disease Repeat cholesterol screening should take place: Every 5 years for women with normal cholesterol levels More often if changes occur in lifestyle (including weight gain and diet) More often if you have diabetes, heart disease, kidney problems, or certain other conditions DIABETES SCREENING You should be screened for diabetes starting at age 35 and then repeated every 3 years if you have no risk factors for diabetes. Screening may need to start earlier and be repeated more often if you have other risk factors for diabetes, such as: You have a first degree relative with diabetes. You are overweight or have obesity. You have high blood pressure, prediabetes, or a history of heart disease. Screening for diabetes should be done if you are planning to become and you are overweight and have other risk factors such as high blood pressure. DENTAL EXAM Go to the dentist once or twice every year for an exam and cleaning. Your dentist will evaluate if you need more frequent visits. EYE EXAM Have an eye exam every 5 to 10 years before age 40. If you have vision problems, have an eye exam every 2 years or more often if recommended by your provider. You should have an eye exam that includes an examination of your retina (back of your eye) at least every year if you have diabetes. IMMUNIZATIONS Commonly needed vaccines include: Flu shot: get one every year. COVID-19 vaccine: ask your provider what is best for you. Tetanus-diphtheria and acellular pertussis (Tdap) vaccine: have one at or after age 19 as one of your tetanus-diphtheria vaccines if you did not receive it as an adolescent. Tetanus-diphtheria: have a booster (or Tdap) every 10 years. Varicella vaccine: receive 2 doses if you never had chickenpox or the varicella vaccine. Hepatitis B vaccine: receive 2, 3, or 4 doses, depending on your exact circumstances. Measles, mumps, and rubella (MMR) vaccine: receive 1 to 2 doses if you are not already immune to MMR. Your provider can tell you if you are immune. Ask your provider about the human papillomavirus (HPV) vaccine if: You have not received the HPV vaccine in the past You have not completed the full vaccine series (you should catch up on this shot) Ask your provider if you should receive other immunizations if you have certain health problems that increase your risk for some diseases such as pneumonia. INFECTIOUS DISEASE SCREENING Women who are sexually active should be screened for chlamydia and gonorrhea up until age 25. Women 25 years and older should be screened for chlamydia and gonorrhea if at high risk. Screening for hepatitis C: All adults ages 18 to 79 should get a one-time test for hepatitis C. people should be screened at every . Screening for human immunodeficiency virus (HIV): All people ages 15 to 65 should get a one-time test for HIV. Depending on your lifestyle and medical history, you may also need to be screened for infections such as syphilis and HIV, as well as other infections. PHYSICAL EXAM All adults should visit their provider from time to time, even if they are healthy. The purpose of these visits is to: Screen for disease Assess your risk of future medical problems Encourage a healthy lifestyle Update your vaccinations and other preventive care services Maintain a relationship with a provider in case of an illness Your height, weight, and BMI should be checked at every exam. During your exam, your provider may ask you about: Depression and anxiety Diet and exercise Alcohol and tobacco use Safety issues, such as using seat belts, smoke detectors, and intimate partner violence Your medicines and risk for interactions SKIN SELF-EXAM Your provider may check your skin for signs of skin cancer, especially if you're at high risk, such as if you: Have had skin cancer before Have close relatives with skin cancer Have a weakened immune system OTHER SCREENING Talk with your provider about colon cancer screening if you have a strong family history of colon cancer or polyps, or if you have had inflammatory bowel diseas e or polyps yourself. Routine bone density screening of women under 40 is not recommended.
[2025-02-15 11:01] VITALS: BP 110/66; PULSE 68; RESP 12; TEMP 36.2; O2SAT 98; BMI 28.3
--- OUTSIDE RECORDS SUMMARY | 2025-02-15 12:13 | XMS_ITS | Encounter Summary ---
Author Organization [facility] Address [address] [address] Phone Care Team Providers Care Crane Hoist Or Lift Operator Name Role Phone Marily Elkins MATTRESS INSPECTOR Unavailable [phone] Iris Chamberlain MD Unavailable Gilma Cornelius DO Unavailable Erlin Pennington MD Unavailable [phone] Miriam Valladares MD Unavailable [phone] Artie Mayorga CNP Unavailable Erlin Pennington MD Primary Care Provider Encounter Details Date Type Department Care Team (Latest Contact Info) Description 04/21/2018 Ancillary Orders Virtual Department [address] [place] [address] Gokul Stevens MD [address] [place] [phone] [email or web address] Chronic pancreatitis, unspecified pancreatitis type Social History [...] right lobe of the liver. POS - [id number] Narrative 05/14/2018 12:10 PM EST US ABDOMEN [...] right lobe of the liver. POS - [id number] us Gokul Stevens MD IMG US ABDOMEN [...] documented as of this encounter Care Teams Crane Hoist Or Lift Operator Relationship Specialty Start Date End Date Erlin Pennington MD [address] [place] [address], [address] [place] [address] PCP - General 03/05/17 09/24/24 Marily Elkins NP [address] [place] [address] Historical LMR Provider 03/04/17 05/27/21 Iris Chamberlain MD [address] [place] [address], [address] [place] [address] Historical LMR Provider 03/04/17 05/27/21 Gilma Cornelius DO [address] [place] [address] Historical LMR Provider 03/04/17 2 Erlin Pennington MD [address] [facility], [address] [place] [address] Historical LMR Provider 03/04/17 5 Miriam Valladares MD [address] [place] [address] Historical LMR Provider 03/04/17 2 Artie Mayorga CNP [address] [facility], [address] [place] [address] [email or web address] Historical LMR Provider 03/04/17 documented as of this encounter Additional Source Comments The information contained in this document represents components of the legal health record. It is not the complete legal health record.[facility]
--- OUTSIDE RECORDS SUMMARY | 2025-02-15 12:13 | XMS_ITS | Encounter Summary ---
Author Organization [facility] Address [email or web address] [address] Phone Care Team Providers Care Special Education Resource Room Teacher Name Role Phone Marily Elkins FINANCIAL REPRESENTATIVE Unavailable [phone] Iris Chamberlain MD Unavailable Gilma Cornelius DO Unavailable [phone] Erlin Pennington MD Unavailable [phone] Miriam Valladares MD Unavailable [phone] Artie Mayorga CNP Unavailable Erlin Pennington MD Primary Care Provider Encounter Details Date Type Department Care Team (Late st Contact Info) Description 04/21/2018 Ancillary Orders Virtual Department [address] [place] [address] Gokul Stevens MD [address] [place] [address] [email or web address] Social History Tobacco Use Types Packs/Day Years [...] documented as of this encounter Care Teams Special Education Resource Room Teacher Relationship Specialty Start Date End Date Erlin Pennington MD [address] [place] [address], [address] [place] [address] PCP - General 03/05/17 09/24/24 Marily Elkins NP [address] [place] [address] Historical LMR Provider 03/04/17 05/27/21 Iris Chamberlain MD [address] [place] [address], [address] [address] Historical LMR Provider 03/04/17 05/27/21 Gilma Cornelius DO [address] [place] [address] Historical LMR Provider 03/04/17 2 Erlin Pennington MD [address] [place] [address] Historical LMR Provider 03/04/17 5 Miriam Valladares MD [address] [place] [address] Historical LMR Provider 03/04/17 2 Artie Mayorga CNP [address] [place] [address], [address] [place] [address] [email or web address] Historical LMR Provider 03/04/17 documented as of this encounter Additional Source Comments The information contained in this document represents components of the legal health record. It is not the complete legal health record.[facility]
--- OUTSIDE RECORDS SUMMARY | 2025-02-15 12:13 | XMS_ITS | Encounter Summary ---
Author Organization [facility] Address [facility] [employer] [address] [address] Phone Care Team Providers Care Ceramic Designer Name Role Phone Marily Elkins CHROME WORKER Unavailable [phone] Iris Chamberlain MD Unavailable Gilma Cornelius DO Unavailable [phone] Erlin Pennington MD Unavailable [phone] Miriam Valladares MD Unavailable [phone] Artie Mayorga CNP Unavailable Erlin Pennington MD Primary Care Provider Encounter Details Date Type Department Care Team (Latest Contact Info) Description 12/20/2017 Transcribe Orders [facility] Laboratory [address] [place] [address] Leydi Durham PA [address] [place] [address] Diagnosis unknown (Primary Dx) Social History Tobacco [...] EDT) LIPASE 60 16 - 63 U/L [facility] Blood 12/20/2017 5:11 PM EDT 12/20/2017 5:14 PM EDT us Leydi TERRY LAB BLOOD ORDERABLES Final Result [address] [address] * Comprehensive metabolic panel (12/20/2017 5:11 PM EDT) SODIUM 139 133 - 146 mmol/L [facility] POTASSIUM 3.8 3.3 - 5.1 mmol/L [facility] CHLORIDE 102 96 - 108 mmol/L [facility] CO2 24 21 - 35 mmol/L [facility] BUN 16 6 - 19 mg/dL [facility] CREATININE 0.90 0.5 - 1.5 mg/dL [facility] GLUCOSE 87 70 - 99 mg/dL [facility] ALBUMIN 4.2 3.9 - 4.8 g/dL [facility] TOTAL PROTEIN 7.1 6.5 - 8.0 g/dL [facility] CALCIUM 8.5 8.4 - 10.3 mg/dL [facility] ALKALINE PHOSPHATASE 51 39 - 117 U/L [facility] TOTAL BILIRUBIN 0.3 0.0 - 1.2 mg/dL [facility] AST 17 0 - 37 U/L [facility] ALT 12 0 - 40 U/L [facility] GLOBULIN 2.9 1 - 4.8 g/dL [facility] EGFR 83 >59 mL/min/1.7 3m2 [facility] Comment:If patient is black, multiply result by 1.159. Estimated glomerular filtration rate calculated using the CKD-EPI equation. ANION GAP 17 10 - 20 mmol/L [facility] Blood 12/20/2017 5:11 PM EDT 12/20/2017 5:14 PM EDT us Leydi [facility] LAB BLOOD ORDERABLES Final Result [address] [place] [address] * (ABNORMAL) CBC and differential (12/20/2017 5:11 PM EDT) WBC 6.62 3.40 - 11.20 K/uL [facility] RBC 4.36 3.80 - 4.80 M/uL [facility] HGB 14.3 12.0 - 15.0 g/dL [facility] HCT 40.6 36.0 - 46.0 % [facility] PLT 252 130 - 400 K/uL [facility] MCV 93.1 79.0 - 98.0 fL [facility] MCH 32.8 27.0 - 34.8 pg [facility] MCHC 35.2 31.5 - 36.0 g/dL [facility] RDW 12.2 10.8 - 14.6 % [facility] MPV 10.5 9.4 - 12.4 fl [facility] NRBC 0.00 /100 WBCs [facility] ABSOLUTE NRBC 0.00 K/uL [facility] DIFF METHOD Auto [facility] NEUTS 47.5 45.30 - 77.70 % [facility] LYMPHS 42.7(H) 12.30 - 39.70 % [facility] MONOS 5.3 4.10 - 12.80 % [facility] EOS 3.2 0 - 7.2 % [facility] BASOS 1.1 0 - 2.80 % [facility] Granulocytes, immature (%) 0.2 0.0 - 0.9 % [facility] ABSOLUTE NEUTS 3.15 1.40 - 7.70 K/uL [facility] ABSOLUTE LYMPHS 2.83 0.60 - 3.20 K/uL [facility] ABSOLUTE MONOS 0.35 0.11 - 0.59 K/uL [facility] ABSOLUTE EOS 0.21 0.01 - 0.50 K/uL [facility] ABSOLUTE BASOS 0.07 0.00 - 0.08 K/uL [facility] Granulocytes, immature 0.01 0.00 - 0.05 K/uL [facility] Blood 12/20/2017 5:11 PM EDT 12/20/2017 5:14 PM EDT us Leydi T[facility]Y LAB BLOOD ORDERABLES Final Result [address] [address] documented in this encounter Visit Diagnoses Diagnosis Diagnosis unknown- Primary documented in this encounter Additional Health Concerns Infection Onset Date Last Indicated Resolved Time CoV-Exposed Comment:Recent close contact 05/30/2020 05/30/2020 06/13/2020 1:24 AM EST CoV-Presumed 10/01/2021 10/01/2021 10/22/2021 1:21 AM EDT documented as of this encounter Care Teams Ceramic Designer Relationship Specialty Start Date End Date Erlin Pennington MD [address] [place] [address], [address] [address] PCP - General 03/05/17 09/24/24 Marily Elkins NP [address] [place] [address] Historical LMR Provider 03/04/17 05/27/21 Iris Chamberlain MD [address] [place] [address], [address] [address] Historical LMR Provider 03/04/17 05/27/21 Gilma Cornelius DO [address] [place] [address] Historical LMR Provider 03/04/17 2 Erlin Pennington MD [address] [place] [address] Historical LMR Provider 03/04/17 5 Miriam Valladares MD [address] [place] [address] Historical LMR Provider 03/04/17 2 Artie Mayorga CNP [address] [facility], [address] [place] [address] [email or web address] Historical LMR Provider 03/04/17 documented as of this encounter Additional Source Comments The information contained in this document represents components of the legal health record. It is not the complete legal health record.[facility]
--- OUTSIDE RECORDS SUMMARY | 2025-02-15 12:14 | XMS_ITS | Encounter Summary ---
Author Organization [facility] Address [address] [place] [address] Phone Care Team Providers Care High School Math Tutor Name Role Phone Marily Elkins DEMAND PLANNING ANALYST Unavailable [phone] Iris Chamberlain MD Unavailable Gilma Cornelius DO Unavailable [phone] Erlin Pennington MD Unavailable [phone] Miriam Valladares MD Unavailable [phone] Artie Mayorga CNP Unavailable [phone] Erlin Pennington MD Primary Care Provider [phone] Reason for Referral * MRI/CAT Scan - Closed Specialty Diagnoses / Procedures Referred By Contac t Referred To Contact Radiology Diagnoses Idiopathic chronic pancreatitis Procedures MRI Cholangiopancreatography (MRCP) Manjinder Staples MD Phone: tel: fax: [email or web address] Referral ID Status Reason Start Date Expiration Date Visits Re quested Visits Authorized [id number] Closed 02/04/2020 08/02/2020 1 1 Encounter Details Date Type Department Care Team (Latest Contact Info) Description 02/05/2020 Transcribe Orders [facility] Department [address] [place] [address] Manjinder Staples MD [address] [place] [phone] [email or web address] Idiopathic chronic pancreatitis (Primary Dx) Social History [...] vessel. No other pathology is apparent. POS [id number] Narrative 02/19/2020 9:43 AM EDT TECHNIQUE: 1.5 [...] vessel. No other pathology is apparent. POS [id number] Manjinder Staples MD IMG MR ABDOMEN Final [...] documented as of this encounter Care Teams High School Math Tutor Relationship Specialty Start Date End Date Erlin Pennington MD [address] [place] [address], [address] [place] [address] PCP - General 03/05/17 09/24/24 Marily Elkins NP [address] [place] [address] Historical LMR Provider 03/04/17 05/27/21 Iris Chamberlain MD [address] [facility], [address] [place] [address] Historical LMR Provider 03/04/17 05/27/21 Gilma Cornelius DO [address] [place] [address] Historical LMR Provider 03/04/17 2 Erlin Pennington MD [address] [place] [address], [address] [place] [address] Historical LMR Provider 03/04/17 5 Miriam Valladares MD [address] [place] [address] Historical LMR Provider 03/04/17 2 Artie Mayorga CNP [address] [facility], [address] [place] [address] Historical LMR Provider 03/04/17 documented as of this encounter Additional Source Comments The information contained in this document represents components of the legal health record. It is not the complete legal health record.[facility]
--- OUTSIDE RECORDS SUMMARY | 2025-02-15 12:14 | XMS_ITS | Clinical Summary ---
Author Organization [facility] Address [address] [place] [address] Phone Care Team Providers Care Residential Manager Name Role Phone Tiffany Daria TUTTLE Primary Care Provider Encounters Date Type Department Care Team Description 11/24/2024 2:09 PM EDT - 11/24/2024 11:59 PM EDT Hospital Encounter [facility] Xray [address] [place] [address] Syncope and collapse Discharge Disposition: [...] (2 of 2 - PCV) 05/06/2007 05/06/2006 Depression Screening 05/20/2024 HIV Screening 09/22/2024 Hepatitis C Screening 09/22/2024 Social Influencers of Health Screening 09/22/2024 COVID-19 Vaccine ( season) 2025 05/06/2021, 07/08/2020, 06/03/2020 Influenza Vaccine (#1) 2025 3, 04/15/2022, 03/06/2021, Additional history exists DTaP,Tdap,and Td Vaccines (3 - Td or Tdap) 06/26/2029 06/26/2019, 05/24/2011 RSV Immunization Adult Patients (1 - 1-dose 75+ series) 10/15/2058 MMR Vaccines Aged Out 02/14/2023 No longer [...] inal Result from Last 3 Months Insurance [facility] Care Teams Residential Manager Relationship Specialty Start Date End Date Daria Allen FNP [address] [address] PCP - General Internal Medicine 11/24/24
--- OUTSIDE RECORDS SUMMARY | 2025-02-15 12:14 | XMS_ITS | Patient Health Record ---
Author Organization [facility] Address [address] [place] [address] [address] [place] [address] Care Team Providers Care Roller Skate Assembler Name Role Phone VALERY MOREAU CNP Primary Care Provider TALISHA Mckenzie Unavailable [phone] Allergies Allergen (clinical drug ingredient) Drug/Non Drug [...] Status W/U Status Risk Notes Problem COVID-19 ([id number]) COVID-19 (U07.1) Active confirmed Vital Signs Temperature 98.0 degrees Fahrenheit 10/09/2024 Blood pressure diastolic 74 mm Hg 10/09/2024 Height 64 in 10/09/2024 Blood pressure systolic 110 mm Hg 10/09/2024 Weight 169 lbs 10/09/2024 BMI 29.01 kg/m2 10/09/2024 Encounters Encounter Location Date Provider Diagnosis [facility] [place] [address] [place] [address] 06/12/2024 TALISHA SEGURAS Nonspecific low blood-pressure reading R03.[address] [facility] [address] [facility] [address] [place] [address] 10/09/2024 TALISHA OKEEFE Encounter for gynecological examination (general) (routine) without abnormal findings Z01.419 ; Encounter for screening mammogram for malignant neoplasm of breast Z12.31 and Presence of (intrauterine) contraceptive device Z97.5 [facility] [place] [facility] [address] [place] [address] 06/11/2024 TALISHA OKEEFE Assessments Encounter Date Diagnosis [...] Provider Name:TALISHA Dodson, 10/15/2025 03:00:00 PM, [address], [address], [place], [address], Insurance Providers Payer Name Payer Address Payer Phone Subscriber Number Group Number Insured Name Patient Relationship to Insured Coverage Start Date Coverage End Date [employer] [place] [address] [address] [place] [address] [id number] KUMAR GONSALVES Self - patient is the insured 3 Medical (General) History Medical History History ICD Code COVID-19 U07.1 Surgical History Surgery Date(Month/Year) [place] teeth extraction 2006 Hospitalization History Reason Date(Month/Year) Childbirth
--- OUTSIDE RECORDS SUMMARY | 2025-02-15 12:14 | XMS_ITS | Clinical Summary ---
Author Organization Located Within [facility] Address [address] [address] Phone Care Team Providers Care Storage Management Architect Name Role Phone Unavailable Primary Care Provider Unavailabl e Allergies Active Allergy Reactions Criticality Noted Date Comments Bupropion Hcl Other (See Comments) Low 10/02/2016 Per pt report: [place] out of it Cat's Claw (Uncaria Tomentosa) Hives 10/02/2016 Codeine Phosphate GI Upset Low 10/02/2016 Erythromycin Hives 10/02/2016 Fluoxetine Other (See Comments) Low 10/02/2016 Per pt report: [place] out of it Sertraline Hcl Other (See Comments) Low 10/02/2016 Per pt report: [place] out of it Sulfamethoxazole-Trime thoprim Nausea and/or [...] (06/26/2019 10:04 AM EST): Previously evaluated at [facility] with EUS, reportedly normal. Recommend follow [...] HEPATITIS C SCREENING 10/15/2001 HIV ONE-TIME SCREENING (18-65 YEARS) 10/15/2001 DEPRESSION SCREENING 06/26/2020 06/26/2019 PAP SMEAR 05/26/2023 05/26/2020, 03/06/2017 MAMMOGRAM 2023 INFLUENZA VACCINE (#1) 2024 , 01/19/2020, 02/12/2019, Additional history exists COVID-19 VACCINE ( season) 2025 05/06/2021, 07/08/2020, 06/03/2020 IUD 12/29/2028 12/29/2020 Adult [...] (0-49 years) Aged Out No longer eligible based on patient's age to complete this topic Medical Devices Implanted Type Area Assemblies And Installations Inspector Device Identifier Shelf Expiration Date Model / [...] SEE NARRATIVE - 05/31/2020 9:47 [place] [address] Boiler Fitter: Ely Carver MD ACCOUNTS PAYABLE CLERK Cytology Report FINAL DIAGNOSIS A. PAP SMEAR [...] 52, 56, 58, 59, 66, 68) by IWT Onclarity HR-HPV analysis. Clinical correlation is advised. This HPV test was performed at [facility], [address] [place] [address]. This test has been FDA approved for SurePath cervical cytology specimens. The accuracy and precision of this test for all other specimen sources has been verified in the Cytopathology Laboratory of the [facility] and has not been cleared or approved by the U.S. Food and Drug Administration. Clinical correlation is advised. CLINICAL HISTORY Date of Last Menstrual Period: 05-22-2020 Contraceptive History: IUD Other Clinical Conditions: Screening Pap SPECIMEN SOURCE A: PAP SMEAR (SUREPATH) CE Patient Name: KUMAR MADSEN : 1985 (Age: 34) Sex: F Institution: [facility] Location: [facility] Date of Collection: 05/26/2020 Date of Reported: 05/30/2020 15:22 Results to: Anita Hope MD Anita Hope MD CYTOLOGY ORDERABLES Edited Re sult - Final SEE NARRATIVE from Last 3 Months or Most Recently Relevant to Health Maintenance Insurance [place] [address] OUT [facility] PPO [facility] PPO [facility] OUT [facility] PPO [facility] OUT OF [facility] Advance Directives For more information, please contact: [phone] (9AM - 5PM [place], Saturday-Saturday) Documents on File Type Date Recorded Patient Business Services Representative [facility] Proxy 10/21/2018 [facility] Care Proxy (10/15/18) Additional Source Comments The information contained in this document represents components of the legal health record. It is not the complete legal health record.[facility]
--- OUTSIDE RECORDS SUMMARY | 2025-02-15 12:14 | XMS_ITS | Encounter Summary ---
Author Organization [facility] Address [facility] [address] [address] Phone Care Team Providers Care Slot Machine Key Person Name Role Phone Marily Elkins APPRENTICE STYLIST Unavailable [phone] Iris Chamberlain MD Unavailable Gilma Cornelius DO Unavailable [phone] Erlin Pennington MD Unavailable [phone] Miriam Valladares MD Unavailable [phone] Artie Mayorga CNP Unavailable Erlin Pennington MD Primary Care Provider Encounter Details Date Type Department Care Team (Latest Contact Info) Description 09/24/2018 Transcribe Orders [facility] Specimen Processing [address] [place] [address] Rashmi Gordon PA-C [address], [address] [place] [address] [email or web address] Acute pancreatitis, unspecified complication status, unspecified pancreatitis [...] Pancreatic Elastase, Stool (09/24/2018 6:52 PM EDT) [facility] ST PANCREA ELASTASE 480 mcg/g [facility] Comment: (NOTE) Adult and Pediatric Reference Ranges for Pancreatic Elastase-1: Normal: >200 mcg/g Moderate Pancreatic Insufficiency: 100-200 mcg/g Severe Pancreatic Insufficiency: <100 mcg/g Elastase-1 (E-1) assay results are expressed in mcg/g, which represent mcg E1/g feces. It is not necessary to interrupt enzyme substitution therapy. Test Performed by: [employer] [place] [address] [place] [address] Stool (Stool) 09/24/2018 6:5 2 PM EDT 09/24/2018 6:54 PM EDT Rashmi Gordon PA-C BODY FLUIDS AND STOOLS ORDERABL ES Final Result [facility] documented in this encounter Visit Diagnoses Diagnosis Acute pancreatitis, unspecified complication status, unspecified pancreatitis type- Primary documented in this encounter Additional Health Concerns Infection Onset Date Last Indicated Resolved Time CoV-Exposed Comment:Recent close contact 05/30/2020 05/30/2020 06/13/2020 1:24 AM EST CoV-Presumed 10/01/2021 10/01/2021 10/22/2021 1:21 AM EDT documented as of this encounter Care Teams Slot Machine Key Person Relationship Specialty Start Date End Date Erlin Pennington MD [address] [place] [address], [address] [place] [address] [email or web address] PCP - General 03/05/17 09/24/24 Marily Elkins NP [address] [place] [address] Historical LMR Provider 03/04/17 05/27/21 Iris Chamberlain MD [address] [facility], [address] [place] [address] Historical LMR Provider 03/04/17 05/27/21 Gilma Cornelius DO [address] [place] [address] Historical LMR Provider 03/04/17 2 Erlin Pennington MD [address] [place] [address], [address] [place] [address] [email or web address] Historical LMR Provider 03/04/17 5 Miriam Valladares MD [address] [place] [address] Historical LMR Provider 03/04/17 2 Artie Mayorga CNP [address] [place] [address], [address] [place] [address] [email or web address] Historical LMR Provider 03/04/17 documented as of this encounter Additional Source Comments The information contained in this document represents components of the legal health record. It is not the complete legal health record.[facility]
--- OUTSIDE RECORDS SUMMARY | 2025-02-15 12:14 | XMS_ITS | Encounter Summary ---
Author Organization [facility] Address [facility] [employer] [address] [address] Phone Care Team Providers Care News Production Assistant Name Role Phone Marily Elkins NITROGLYCERIN SUPERVISOR Unavailable [phone] Iris Chamberlain MD Unavailable Gilma Cornelius DO Unavailable [phone] Erlin Pennington MD Unavailable [phone] Miriam Valladares MD Unavailable [phone] Artie Mayorga CNP Unavailable Erlin Pennington MD Primary Care Provider [phone] Encounter Details Date Type Department Care Team (Late st Contact Info) Description 02/05/2020 Procedure Pass [facility], [address] [address] Social History Tobacco Use Types Packs/Day Years [...] documented as of this encounter Care Teams News Production Assistant Relationship Specialty Start Date End Date Erlin Pennington MD [address] [place] [address] PCP - General 03/05/17 09/24/24 Marily Elkins, RONI [address] [place] [address] Historical LMR Provider 03/04/17 05/27/21 Iris Chamberlain MD [address] [place] [address], [facility] [address] [place] [address] Historical LMR Provider 03/04/17 05/27/21 Gilma Cornelius DO [address] [place] [address] Historical LMR Provider 03/04/17 2 Erlin Pennington MD [address] [place] [address] Historical LMR Provider 03/04/17 5 Miriam Valladares MD [address] [place] [address] Historical LMR Provider 03/04/17 2 Artie Mayorga CNP [address] [facility], [address] [place] [address] [email or web address] Historical LMR Provider 03/04/17 documented as of this encounter Additional Source Comments The information contained in this document represents components of the legal health record. It is not the complete legal health record.[facility]
--- OUTSIDE RECORDS SUMMARY | 2025-02-15 12:14 | XMS_ITS | Encounter Summary ---
Author Organization [facility] Address [facility] [employer] [address] [address] Phone Care Team Providers Care Solar Project Engineer Name Role Phone Marily Elkins PERSONAL BANKER Unavailable [phone] Iris Chamberlain MD Unavailable Gilma Cornelius DO Unavailable [phone] Erlin Pennington MD Unavailable [phone] Miriam Valladares MD Unavailable [phone] Artie Mayorga CNP Unavailable [phone] Erlin Pennington MD Primary Care Provider [phone] Encounter Details Date Type Department Care Team (Latest Contact Info) Description 07/23/2019 Transcribe Orders [facility] Laboratory [address] [id number] Leydi Durham PA 10 [place] [address] Acute pancreatitis, unspecified complication status, unspecified pancreatitis [...] EST) WBC 8.02 4.00 - 11.00 K/uL [facility] Comment:Note Reference Range updates to all CBC and Differential results. RBC 4.64 3.72 - 5.30 M/uL [facility] HGB 14.8 10.6 - 15.5 g/dL [facility] Comment:Note updated Referen ce Ranges for all CBC and Differential results. HCT 43.3 32.0 - 45.0 % [facility] PLT 248 140 - 430 K/uL [facility] MCV 93.3 78.0 - 97.0 fL [facility] MCH 31.9 25.0 - 33.0 pg [facility] MCHC 34.2 32.0 - 36.0 g/dL [facility] RDW 12.6 11.0 - 16.0 % [facility] MPV 10.5 8.4 - 12.8 fl [facility] NRBC 0.00 0 /100 WBCs [facility] ABSOLUTE NRBC 0.00 0 K/uL [facility] Blood 07/23/2019 11:5 6 AM EST 07/23/2019 12:01 PM EST us Leydi TERRY LAB BLOOD ORDERABLES Final Result Performing Organization Address City/State/[facility] Co de Phone Number [address] [address] * (ABNORMAL) IgG subclasses (07/23/2019 11:56 AM EST) IGG 1 509 341 - 894 mg/dL [facility] [address] IGG 2 598 171 - 632 mg/dl [facility]PATH [address] IGG 3 88.3 18.4 - 106.0 mg/dl [facility]PATH [address] IGG 4 212.0(H) 2.4 - 121.0 mg/dl [facility] [address] TOTAL IGG 1,360 767 - 1,590 mg/dl [facility] [address] Blood 07/23/2019 11:5 6 AM EST 07/23/2019 12:01 PM EST Leydi TERRY LAB BLOOD ORDERABLES Final Result Performing Organization Address City/[facility] Co de Phone Number [facility] LAB MED/[address] [place] [address] * Lipase (07/23/2019 11:56 AM EST) LIPASE 47 16 - 63 U/L [facility] Blood 07/23/2019 11:5 6 AM EST 07/23/2019 12:01 PM EST Leydi TERRY LAB BLOOD ORDERABLES Final Result Performing Organization Address [facility] de Phone Number [address] [address] documented in this encounter Visit Diagnoses Diagnosis [...] documented as of this encounter Care Teams Solar Project Engineer Relationship Specialty Start Date End Date Erlin Pennington MD [address] [place] [address], [address] [place] [address] [email or web address] PCP - General 03/05/17 09/24/24 Marily Elkins NP [address] [place] [address] Historical LMR Provider 03/04/17 05/27/21 Iris Chamberlain MD [address] [facility], [address] [place] [address] Historical LMR Provider 03/04/17 05/27/21 Gilma Cornelius DO [address] [place] [address] Historical LMR Provider 03/04/17 2 Erlin Pennington MD [address] [place] [address], [address] [place] [address] [email or web address] Historical LMR Provider 03/04/17 5 Miriam Valladares MD [address] [place] [address] Historical LMR Provider 03/04/17 2 Artie Mayorga CNP [address] [place] [address], [address] [place] [address] [email or web address] Historical LMR Provider 03/04/17 documented as of this encounter Additional Source Comments The information contained in this document represents components of the legal health record. It is not the complete legal health record.[facility]
--- OUTSIDE RECORDS SUMMARY | 2025-02-15 12:14 | XMS_ITS | Encounter Summary ---
Author Organization [facility] Address [facility] [address] [address] Phone Care Team Providers Care Press Clippings Cutter And Paster Name Role Phone Marily Elkins DRIVER LICENSE AGENT Unavailable [phone] Iris Chamberlain MD Unavailable Gilma Cornelius DO Unavailable [phone] Erlin Pennington MD Unavailable [phone] Miriam Valladares MD Unavailable [phone] Artie Mayorga CNP Unavailable [phone] Erlin Pennington MD Primary Care Provider Encounter Details Date Type Department Care Team (Latest Contact Info) Description 01/28/2020 Transcribe Orders [facility] Laboratory [address] [place], [place] [id number] Manjinder Staples MD 10 [facility] 2 [place] [address] [email or web address] Chronic pancreatitis, unspecified pancreatitis type (Primary Dx) [...] REACTIVE PROTEIN <0.3 0.0 - 4.0 mg/L [facility] Blood 01/28/2020 2:03 PM EDT 01/28/2020 2:07 PM EDT us Manjinder Staples MD LAB BLOOD ORDERABLES Final R esult [facility] [address] [place] [address] * Comprehensive metabolic panel (01/28/2020 2:03 PM EDT) SODIUM 138 133 - 146 mmol/L [facility] POTASSIUM 4.3 3.3 - 5.1 mmol/L [facility] CHLORIDE 104 96 - 108 mmol/L [facility] CO2 24 21 - 35 mmol/L [facility] BUN 13 6 - 19 mg/dL [facility] CREATININE 0.70 0.5 - 1.5 mg/dL [facility] GLUCOSE 95 70 - 99 mg/dL [facility] ALBUMIN 4.3 3.9 - 4.8 g/dL [facility] TOTAL PROTEIN 7.1 6.5 - 8.0 g/dL [facility] CALCIUM 9.3 8.4 - 10.3 mg/dL [facility] ALKALINE PHOSPHATASE 50 39 - 117 U/L [facility] TOTAL BILIRUBIN 0.3 0.0 - 1.2 mg/dL [facility] AST 29 0 - 37 U/L [facility] ALT 13 0 - 40 U/L [facility] GLOBULIN 2.8 1 - 4.8 g/dL [facility] EGFR 111 >59 mL/min/1.7 3m2 [facility] Comment:Estimated glomerular filtration rate calculated using the CKD-EPI equation. ANION GAP 14 10 - 20 mmol/L [facility] Blood 01/28/2020 2:03 PM EDT 01/28/2020 2:07 PM EDT us Manjinder Staples MD LAB BLOOD ORDERABLES Final R esult [address] [address] * CBC (01/28/2020 2:03 PM EDT) WBC 5.52 4.00 - 11.00 K/uL [facility] Comment:Note Reference Range updates to all CBC and Differential results. RBC 4.67 3.72 - 5.30 M/uL [facility] HGB 14.9 10.6 - 15.5 g/dL [facility] Comment:Note updated Referen ce Ranges for all CBC and Differential results. HCT 44.2 32.0 - 45.0 % [facility] PLT 252 140 - 430 K/uL [facility] MCV 94.6 78.0 - 97.0 fL [facility] MCH 31.9 25.0 - 33.0 pg [facility] MCHC 33.7 32.0 - 36.0 g/dL [facility] RDW 12.3 11.0 - 16.0 % [facility] MPV 10.6 8.4 - 12.8 fl [facility] NRBC 0.00 0 /100 WBCs [facility] ABSOLUTE NRBC 0.00 0 K/uL [facility] Blood 01/28/2020 2:0 3 PM EDT 01/28/2020 2:07 PM EDT us Manjinder Staples MD LAB BLOOD ORDERABLES Final R esult [address] [address] * Lipase (01/28/2020 2:03 PM EDT) LIPASE 57 16 - 63 U/L [facility] Blood 01/28/2020 2:03 PM EDT 01/28/2020 2:07 PM EDT us Manjinder Staples MD LAB BLOOD ORDERABLES Final R esult [address] [address] * (ABNORMAL) Amylase (01/28/2020 2:03 PM EDT) AMYLASE 104(H) 28 - 100 U/L [facility] Blood 01/28/2020 2:03 PM EDT 01/28/2020 2:07 PM EDT us Manjinder Staples MD LAB BLOOD ORDERABLES Final R esult Performing Organization Address [facility] Co de Phone Number [address] [address] documented in this encounter Visit Diagnoses Diagnosis [...] documented as of this encounter Care Teams Press Clippings Cutter And Paster Relationship Specialty Start Date End Date Erlin Pennington MD [address] [place] [address], [address] [place] [address] PCP - General 03/05/17 09/24/24 Marily Elkins NP [address] [place] [address] Historical LMR Provider 03/04/17 05/27/21 Iris Chamberlain MD [address] [place] [address], [address] [place] [address] Historical LMR Provider 03/04/17 05/27/21 Gilma Cornelius DO [address] [place] [address] Historical LMR Provider 03/04/17 2 Erlin Pennington MD [address] [place] [address], [address] [place] [address] [email or web address] Historical LMR Provider 03/04/17 5 Miriam Valladares MD [address] [place] [address] Historical LMR Provider 03/04/17 2 Artie Mayorga CNP [address] [place] [address], [address] [place] [address] [email or web address] Historical LMR Provider 03/04/17 documented as of this encounter Additional Source Comments The information contained in this document represents components of the legal health record. It is not the complete legal health record.[facility]
== END 2025-02-15 11:47 | disposition home or self-care (01) ==
LOC: HO.HMCFM 10:45
PROVIDERS: PCP Nurse Practitioner Family; Visit Provider Nurse Practitioner Family
DX: Z00.00 Encounter for general adult medical examination without abnormal findings (principal); G90.A Postural orthostatic tachycardia syndrome [POTS]; M25.571 Pain in right ankle and joints of right foot; M25.572 Pain in left ankle and joints of left foot; Z97.5 Presence of (intrauterine) contraceptive device; Z76.89 Persons encountering health services in other specified circumstances; Z92.89 Personal history of other medical treatment; R22.2 Localized swelling, mass and lump, trunk; J30.2 Other seasonal allergic rhinitis

== ENCOUNTER 2025-02-15 10:44 | Outpatient (REF) | payer OTHER, SELFPAY ==
[2025-02-15 13:34] LABS: Hematocrit 42.9 % (37.0-47.0); Hemoglobin 14.6 g/dl (12.0-16.0); Mean Corpuscular HGB Conc 34.0 g/dl (31.0-35.0); Mean Corpuscular Hemoglobin 32.0 pg (27.0-33.0); Mean Corpuscular Volume 94.1 fL (80.0-98.0); NRBC Abs Auto 0.000 X10*3/uL (0.0-0.012); NRBC Pct Auto 0.0 /100WBC (0.0-0.2); Platelet Count 265 X10*3/uL (160-400); Red Blood Count 4.56 X10*6/uL (4.20-5.50); White Blood Count 5.8 X10*3/uL (4.8-10.8)
[2025-02-15 14:31] LABS: Alanine Aminotransferase 24 U/L (0-31); Albumin Level 4.2 g/dL (3.5-5.0); Alkaline Phosphatase 48 U/L (39-117); Anion Gap 10 (12-20); Aspartate Amino Transferase 33 U/L (5-31); Blood Urea Nitrogen 17 mg/dL (9-16); Calcium 9.0 mg/dL (8.4-10.2); Carbon Dioxide 26 mmol/L (22-29); Chloride 107 mmol/L (96-108); Cholesterol 256 mg/dL (<200); Estimated Glomerular Filt Rate > 60; HDL Cholesterol 74 mg/dL (>40); Potassium 4.2 mmol/L (3.3-5.1); Sodium 139 mmol/L (135-145); Total Protein 7.0 g/dL (6.5-8.0); Triglycerides 100 mg/dL (<150)
[2025-02-15 15:03] LABS: Folate 12.8 ng/mL (> or = 4.0); Vitamin B12 505 pg/mL (200-900)
[2025-02-17 19:54] LABS: SM/Ribonucleoprotein Ab <1.0 NEG AI (<1.0 NEG); Smith Protein <1.0 NEG AI (<1.0 NEG)
[2025-02-18 21:29] LABS: Anti Nuclear Antibody Screen POSITIVE (NEGATIVE); Anti Nuclear Antibody Titer 1:40 titer
== END 2025-02-15 10:45 | disposition home or self-care (01) ==
LOC: HO.LAB 10:44
PROVIDERS: PCP Nurse Practitioner Family; Visit Provider Nurse Practitioner Family
DX: Z76.89 Persons encountering health services in other specified circumstances (principal); Z00.00 Encounter for general adult medical examination without abnormal findings; G90.A Postural orthostatic tachycardia syndrome [POTS]; M25.571 Pain in right ankle and joints of right foot; M25.572 Pain in left ankle and joints of left foot; R22.2 Localized swelling, mass and lump, trunk; J30.2 Other seasonal allergic rhinitis; Z97.5 Presence of (intrauterine) contraceptive device; Z92.89 Personal history of other medical treatment
CPT/HCPCS: 36415; 80053; 80061; 82043; 82306; 82570; 82607; 82746; 83036; 84443; 85027; 85652; 86038; 86039; 86140; 86160; 86225; 86235; 86431; 96127

== ENCOUNTER 2025-02-22 09:24 | Outpatient (AMB) | payer OTHER, SELFPAY ==
--- NOTE | 2025-02-22 10:06 | AM.OFFWIN_ITS ---
Intake Vital Signs 02/22/25 10:07 Height 5 ft 4.5 in Weight 166 lb BMI 28.1 BP 104/62 Blood Pressure Location Lt brachial Position Sitting Pulse 80 Pulse Source Pulse Oximeter Temp 98.5 F Temp Source Oral Pulse Oximetry (%) 97 Oxygen Delivery Method Room Air Intake Visit Reasons: EP-b/l legs & arms poison aisha Patient Tobacco Use Status: Never used Tobacco Allergies erythromycin base (ERYTHROMYCIN BASE) Allergy (Unknown, Verified 02/22/25 10:08) HIVES sulfamethoxazole (From BACTRIM) Adverse Reaction (Intermediate, Verified 02/22/25 10:08) STOMACH UPSET trimethoprim (From BACTRIM) Adverse Reaction (Intermediate, Verified 02/22/25 10:08) STOMACH UPSET Do you need a note to return to daycare/school/sports/work: No HPI HPI Comments History of Present Illness Details History - The patient is a 39-year-old female pr esenting with a rash due to poison aisha. - The rash began last week after doing Plerts work, indicating exposure to poison aisha. - The patient reports severe itching and burning sensation, which has worsened over time, affecting her sleep. - She has attempted various rkoe-lqh-zqw nter treatments including Benadryl cream, hydrocortisone cream, and other topical applications without relief. - There is no history of joint pain or f ever associated with the rash. - She denies new foods, lotions, soaps, detergents, medications, clothes, pets, or travel. Physical Exam General: Cooperative, healthy appearing, comfortable, no acute distress and well developed Orientation: Patient oriented x3 Limitations: No limitations Mouth: normal, moist oral mucosa Neck: Normal visual inspection and Yes full ROM Respiratory: Normal respiratory effort and able to speak in complete sentences. Clear to auscultation bilaterally. No w/r/r noted. Cardiovascular: RRR, no m/r/g noted. Normal S1 and S2 Skin: Raised, non-tender, dry, papules noted on the arms and legs. No induration noted. No discharge noted. No streaking noted. Patient was informed and verbally consented to the use of an ambient scribe for clinic note documentation during this visit [facility] Medical History (Updated 02/19/25 @ 12:15 by Dayami Arrington, MOLD YARD CRANE OPERATOR-LENO) Syncope Palpitations Allergic Sinusitis Low BP Surgical History (Updated 02/15/25 @ 11:05 by Jennifer Owens MA) No pertinent past surgical history Family History (Updated 02/15/25 @ 11:07 by Jennifer Owens MA) Maternal Grandmother HTN (hypertension) Maternal Grandfather Esophageal cancer Paternal Grandfather Bladder cancer Social History (Updated 02/15/25 @ 11:04 by Jennifer Owens MA) Household Members: Spouse and Children Both parents involved: No Caregiver staying overnight: No Housing: House Are you a primary morning caregiver to a significant other at home: Yes Do you presently have visiting nurse or other home services: No 75 years or older and lives alone: No Alcohol intake: current Alcohol intake frequency: a few times a month Patient Tobacco Use Status: Never used Tobacco e-Cigarette/Vaping Use: Never Used Second Hand Smoke Exposure: No Current occupational status: employed 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[place] [employer] Cognitive needs: No Hearing needs: No Vision needs: No Review of Systems Const All systems reviewed & are unremarkable except as noted in HPI and below Physical Exam Vital Signs: Last Vital Signs Temp 98.5 F 02/22/25 10:07 Pulse 80 02/22/25 10:07 BP 104/62 02/22/25 10:07 Pulse Ox 97 02/22/25 10:07 Oxygen Delivery Method Room Air 02/22/25 10:07 BMI result Body Mass Index 28.1 Assessment & Plan Assessment & Plan (1) Rash: Code(s): R21 - Rash and other nonspecific skin eruption Plan Most likely contact dermatitis from a poison aisha exposure Plan - Prescribe prednisone to reduce inflammation and alleviate symptoms. - Recommend continued use of Benadryl cream or hydrocortisone cream for topical relief. - Prescribe Zyrtec and Pepcid as histamine blockers to manage itching and allergic response. - Advise patient to avoid heat exposure and to towel dry after showers to prevent exacerbation of symptoms. - Suggest use of Calamine lotion if the rash is leaking to provide a protective barrier. Medications: New prednisone 40 mg (2 x 20 mg) PO DAILY 10 tabs 0RF 5 days cetirizine 10 mg PO DAILY PRN 30 tabs 0RF allergy symptoms famotidine (Pepcid) 20 mg PO DAILY 7 tabs 0RF Coding Level of Care Code Est Pt Level 3 (68474) Diagnoses Rash R21
[2025-02-22 10:07] VITALS: BP 104/62; PULSE 80; TEMP 36.9; O2SAT 97; BMI 28.1
--- OUTSIDE RECORDS SUMMARY | 2025-02-22 10:37 | XMS_ITS | Encounter Summary ---
Author Organization [facility] Address [address] [address] Phone Care Team Providers Care Bleacher Pulp Name Role Phone Marily Elkins PLANT MACHINIST Unavailable [phone] Iris Chamberlain MD Unavailable Gilma Cornelius DO Unavailable [phone] Erlin Pennington MD Unavailable [phone] Miriam Valladares MD Unavailable [phone] Artie Mayorga CNP Unavailable Erlin Pennington MD Primary Care Provider [phone] Encounter Details Date Type Department Care Team (Late st Contact Info) Description 04/21/2018 Ancillary Orders Virtual Department [address] [place] [address] Gokul Stevens MD [address] [place] [address] [email or web address] Social History Tobacco Use Types Packs/Day Years [...] documented as of this encounter Care Teams Bleacher Pulp Relationship Specialty Start Date End Date Erlin Pennington MD [address] [place] [address], [address] [place] [address] PCP - General 03/05/17 09/24/24 Marily Elkins NP [address] [place] [address] Historical LMR Provider 03/04/17 05/27/21 Iris Chamberlain MD [address] [place] [address], [address] [address] Historical LMR Provider 03/04/17 05/27/21 Gilma Cornelius DO [address] [place] [address] Historical LMR Provider 03/04/17 2 Erlin Pennington MD [address] [place] [address] Historical LMR Provider 03/04/17 5 Miriam Valladares MD [address] [place] [address] Historical LMR Provider 03/04/17 2 Artie Mayorga CNP [address] [place] [address], [address] [place] [address] [email or web address] Historical LMR Provider 03/04/17 documented as of this encounter Additional Source Comments The information contained in this document represents components of the legal health record. It is not the complete legal health record.[facility]
--- OUTSIDE RECORDS SUMMARY | 2025-02-22 10:37 | XMS_ITS | Encounter Summary ---
Author Organization [facility] Address [facility] [employer] [address] [address] Phone Care Team Providers Care Graduate Teacher Education Name Role Phone Marily Elkins THREAD CLIPPER Unavailable [phone] Iris Chamberlain MD Unavailable Gilma Cornelius DO Unavailable [phone] Erlin Pennington MD Unavailable [phone] Miriam Valladares MD Unavailable [phone] Artie Mayorga CNP Unavailable [phone] Erlin Pennington MD Primary Care Provider Encounter Details Date Type Department Care Team (Latest Contact Info) Description 01/28/2020 Transcribe Orders [facility] [address] [place], [place] [id number] Manjinder Staples MD [facility] 2 [place] [address] [email or web address] Chronic pancreatitis, unspecified pancreatitis type (Primary Dx) [...] REACTIVE PROTEIN <0.3 0.0 - 4.0 mg/L [facility] Blood 01/28/2020 2:03 PM EDT 01/28/2020 2:07 PM EDT us Manjinder Staples MD LAB BLOOD ORDERABLES Final R esult [facility] [address] [place] [address] * Comprehensive metabolic panel (01/28/2020 2:03 PM EDT) SODIUM 138 133 - 146 mmol/L [facility] POTASSIUM 4.3 3.3 - 5.1 mmol/L [facility] CHLORIDE 104 96 - 108 mmol/L [facility] CO2 24 21 - 35 mmol/L [facility] BUN 13 6 - 19 mg/dL [facility] CREATININE 0.70 0.5 - 1.5 mg/dL [facility] GLUCOSE 95 70 - 99 mg/dL [facility] ALBUMIN 4.3 3.9 - 4.8 g/dL [facility] TOTAL PROTEIN 7.1 6.5 - 8.0 g/dL [facility] CALCIUM 9.3 8.4 - 10.3 mg/dL [facility] ALKALINE PHOSPHATASE 50 39 - 117 U/L [facility] TOTAL BILIRUBIN 0.3 0.0 - 1.2 mg/dL [facility] AST 29 0 - 37 U/L [facility] ALT 13 0 - 40 U/L [facility] GLOBULIN 2.8 1 - 4.8 g/dL [facility] EGFR 111 >59 mL/min/1.7 3m2 [facility] Comment:Estimated glomerular filtration rate calculated using the CKD-EPI equation. ANION GAP 14 10 - 20 mmol/L [facility] Blood 01/28/2020 2:03 PM EDT 01/28/2020 2:07 PM EDT us Manjinder Staples MD LAB BLOOD ORDERABLES Final R esult [address] [address] * CBC (01/28/2020 2:03 PM EDT) WBC 5.52 4.00 - 11.00 K/uL [facility] Comment:Note Reference Range updates to all CBC and Differential results. RBC 4.67 3.72 - 5.30 M/uL [facility] HGB 14.9 10.6 - 15.5 g/dL [facility] Comment:Note updated Referen ce Ranges for all CBC and Differential results. HCT 44.2 32.0 - 45.0 % [facility] PLT 252 140 - 430 K/uL [facility] MCV 94.6 78.0 - 97.0 fL [facility] MCH 31.9 25.0 - 33.0 pg [facility] MCHC 33.7 32.0 - 36.0 g/dL [facility] RDW 12.3 11.0 - 16.0 % [facility] MPV 10.6 8.4 - 12.8 fl [facility] NRBC 0.00 0 /100 WBCs [facility] ABSOLUTE NRBC 0.00 0 K/uL [facility] Blood 01/28/2020 2:0 3 PM EDT 01/28/2020 2:07 PM EDT us Manjinder Staples MD LAB BLOOD ORDERABLES Final R esult [address] [address] * Lipase (01/28/2020 2:03 PM EDT) LIPASE 57 16 - 63 U/L [facility] Blood 01/28/2020 2:03 PM EDT 01/28/2020 2:07 PM EDT us Manjinder Staples MD LAB BLOOD ORDERABLES Final R esult [address] [address] * (ABNORMAL) Amylase (01/28/2020 2:03 PM EDT) AMYLASE 104(H) 28 - 100 U/L [facility] Blood 01/28/2020 2:03 PM EDT 01/28/2020 2:07 PM EDT us Manjinder Staples MD LAB BLOOD ORDERABLES Final R esult Performing Organization Address [facility] Co de Phone Number [address] [address] documented in this encounter Visit Diagnoses Diagnosis [...] documented as of this encounter Care Teams Graduate Teacher Education Relationship Specialty Start Date End Date Erlin Pennington MD [address] [place] [address], [address] [place] [address] PCP - General 03/05/17 09/24/24 Marily Elkins NP [address] [place] [address] [email or web address] Historical LMR Provider 03/04/17 05/27/21 Iris Chamberlain MD [address] [place] [address], [address] [place] [address] Historical LMR Provider 03/04/17 05/27/21 Gilma Cornelius DO [address] [place] [address] Historical LMR Provider 03/04/17 2 Erlin Pennington MD [address] [place] [address], [address] [place] [address] [email or web address] Historical LMR Provider 03/04/17 5 Miriam Valladares MD [address] [place] [address] Historical LMR Provider 03/04/17 2 Artie Mayorga CNP [address] [place] [address], [address] [place] [address] [email or web address] Historical LMR Provider 03/04/17 documented as of this encounter Additional Source Comments The information contained in this document represents components of the legal health record. It is not the complete legal health record.[facility]
--- OUTSIDE RECORDS SUMMARY | 2025-02-22 10:37 | XMS_ITS | Encounter Summary ---
Author Organization [facility] Address [address] [address] Phone Care Team Providers Care Electricity Trading Analyst Name Role Phone Marily Elkins OUTDOOR STUDIES DIRECTOR Unavailable [phone] Iris Chamberlain MD Unavailable Gilma Cornelius DO Unavailable Erlin Pennington MD Unavailable [phone] Miriam Valladares MD Unavailable [phone] Artie Mayorga CNP Unavailable Erlin Pennington MD Primary Care Provider Encounter Details Date Type Department Care Team (Latest Contact Info) Description 04/21/2018 Ancillary Orders Virtual Department [address] [place] [address] Gokul Stevens MD [address] [place] [address] [email or web address] Chronic pancreatitis, unspecified pancreatitis type Social History [...] right lobe of the liver. POS - [id number] Narrative 05/14/2018 12:10 PM EST US ABDOMEN [...] right lobe of the liver. POS - [id number] us Gokul Stevens MD IMG US ABDOMEN [...] documented as of this encounter Care Teams Electricity Trading Analyst Relationship Specialty Start Date End Date Erlin Pennington MD [address] [place] [address], [address] [place] [address] PCP - General 03/05/17 09/24/24 Marily Elkins NP [address] [place] [address] Historical LMR Provider 03/04/17 05/27/21 Iris Chamberlain MD [address] [place] [address], [address] [place] [address] Historical LMR Provider 03/04/17 05/27/21 Gilma Cornelius DO [address] [place] [address] Historical LMR Provider 03/04/17 2 Erlin Pennington MD [facility], [address] [place] [address] Historical LMR Provider 03/04/17 5 Miriam Valladares MD [address] [place] [address] Historical LMR Provider 03/04/17 2 Artie Mayorga CNP [facility], [address] [place] [address] [email or web address] Historical LMR Provider 03/04/17 documented as of this encounter Additional Source Comments The information contained in this document represents components of the legal health record. It is not the complete legal health record.[facility]
--- OUTSIDE RECORDS SUMMARY | 2025-02-22 10:37 | XMS_ITS | Encounter Summary ---
Author Organization [facility] Address [facility] [employer] [address] [address] Phone Care Team Providers Care Legislative Advocate Name Role Phone Marily Elkins SENIOR TELECOMMUNICATIONS ENGINEER Unavailable [phone] Iris Chamberlain MD Unavailable Gilma Cornelius DO Unavailable [phone] Erlin Pennington MD Unavailable [phone] Miriam Valladares MD Unavailable [phone] Artie Mayorga CNP Unavailable Erlin Pennington MD Primary Care Provider Encounter Details Date Type Department Care Team (Latest Contact Info) Description 12/20/2017 Transcribe Orders [facility] [address] [place] [address] Leydi Durham PA [address] [place] [address] Diagnosis unknown (Primary Dx) Social History Tobacco [...] EDT) LIPASE 60 16 - 63 U/L [facility] Blood 12/20/2017 5:11 PM EDT 12/20/2017 5:14 PM EDT us Leydi TERRY LAB BLOOD ORDERABLES Final Result [address] [address] * Comprehensive metabolic panel (12/20/2017 5:11 PM EDT) SODIUM 139 133 - 146 mmol/L [facility] POTASSIUM 3.8 3.3 - 5.1 mmol/L [facility] CHLORIDE 102 96 - 108 mmol/L [facility] CO2 24 21 - 35 mmol/L [facility] BUN 16 6 - 19 mg/dL [facility] CREATININE 0.90 0.5 - 1.5 mg/dL [facility] GLUCOSE 87 70 - 99 mg/dL [facility] ALBUMIN 4.2 3.9 - 4.8 g/dL [facility] TOTAL PROTEIN 7.1 6.5 - 8.0 g/dL [facility] CALCIUM 8.5 8.4 - 10.3 mg/dL [facility] ALKALINE PHOSPHATASE 51 39 - 117 U/L [facility] TOTAL BILIRUBIN 0.3 0.0 - 1.2 mg/dL [facility] AST 17 0 - 37 U/L [facility] ALT 12 0 - 40 U/L [facility] GLOBULIN 2.9 1 - 4.8 g/dL [facility] EGFR 83 >59 mL/min/1.7 3m2 [facility] Comment:If patient is black, multiply result by 1.159. Estimated glomerular filtration rate calculated using the CKD-EPI equation. ANION GAP 17 10 - 20 mmol/L [facility] Blood 12/20/2017 5:11 PM EDT 12/20/2017 5:14 PM EDT us Leydi TERRY LAB BLOOD ORDERABLES Final Result [address] [place] [address] * (ABNORMAL) CBC and differential (12/20/2017 5:11 PM EDT) WBC 6.62 3.40 - 11.20 K/uL [facility] RBC 4.36 3.80 - 4.80 M/uL [facility] HGB 14.3 12.0 - 15.0 g/dL [facility] HCT 40.6 36.0 - 46.0 % [facility] PLT 252 130 - 400 K/uL [facility] MCV 93.1 79.0 - 98.0 fL [facility] MCH 32.8 27.0 - 34.8 pg [facility] MCHC 35.2 31.5 - 36.0 g/dL [facility] RDW 12.2 10.8 - 14.6 % [facility] MPV 10.5 9.4 - 12.4 fl [facility] NRBC 0.00 /100 WBCs [facility] ABSOLUTE NRBC 0.00 K/uL [facility] DIFF METHOD Auto [facility] NEUTS 47.5 45.30 - 77.70 % [facility] LYMPHS 42.7(H) 12.30 - 39.70 % [facility] MONOS 5.3 4.10 - 12.80 % [facility] EOS 3.2 0 - 7.2 % [facility] BASOS 1.1 0 - 2.80 % [facility] Granulocytes, immature (%) 0.2 0.0 - 0.9 % [facility] ABSOLUTE NEUTS 3.15 1.40 - 7.70 K/uL [facility] ABSOLUTE LYMPHS 2.83 0.60 - 3.20 K/uL [facility] ABSOLUTE MONOS 0.35 0.11 - 0.59 K/uL [facility] ABSOLUTE EOS 0.21 0.01 - 0.50 K/uL [facility] ABSOLUTE BASOS 0.07 0.00 - 0.08 K/uL [facility] Granulocytes, immature 0.01 0.00 - 0.05 K/uL [facility] Blood 12/20/2017 5:11 PM EDT 12/20/2017 5:14 PM EDT us Leydi TERRY LAB BLOOD ORDERABLES Final Result [address] [address] documented in this encounter Visit Diagnoses Diagnosis Diagnosis unknown- Primary documented in this encounter Additional Health Concerns Infection Onset Date Last Indicated Resolved Time CoV-Exposed Comment:Recent close contact 05/30/2020 05/30/2020 06/13/2020 1:24 AM EST CoV-Presumed 10/01/2021 10/01/2021 10/22/2021 1:21 AM EDT documented as of this encounter Care Teams Legislative Advocate Relationship Specialty Start Date End Date Erlin Pennington MD [address] [place] [address], [address] [address] PCP - General 03/05/17 09/24/24 Marily Elkins NP [address] [place] [address] Historical LMR Provider 03/04/17 05/27/21 Iris Chamberlain MD [address] [place] [address], [address] [address] Historical LMR Provider 03/04/17 05/27/21 Gilma Cornelius DO [address] [place] [address] Historical LMR Provider 03/04/17 2 Erlin Pennington MD [address] [place] [address] Historical LMR Provider 03/04/17 5 Miriam Valladares MD [address] [place] [address] Historical LMR Provider 03/04/17 2 Artie Mayorga CNP 22 [facility], [address] [place] [address] [email or web address] Historical LMR Provider 03/04/17 documented as of this encounter Additional Source Comments The information contained in this document represents components of the legal health record. It is not the complete legal health record.[facility]
--- OUTSIDE RECORDS SUMMARY | 2025-02-22 10:37 | XMS_ITS | Encounter Summary ---
Author Organization [facility] Address [address] [place] [address] Phone Care Team Providers Care Inductor Tester Name Role Phone Marily Elkins FORENSIC ECONOMIST Unavailable [phone] Iris Chamberlain MD Unavailable Gilma Cornelius DO Unavailable Erlin Pennington MD Unavailable [phone] Miriam Valladares MD Unavailable [phone] Artie Mayorga CNP Unavailable [phone] Erlin Pennington MD Primary Care Provider [phone] Reason for Referral * MRI/CAT Scan - Closed Specialty Diagnoses / Procedures Referred By Contac t Referred To Contact Radiology Diagnoses Idiopathic chronic pancreatitis Procedures MRI Cholangiopancreatography (MRCP) Manjinder Staples MD Phone: tel: fax: [email or web address] Referral ID Status Reason Start Date Expiration Date Visits Re quested Visits Authorized [id number] Closed 02/04/2020 08/02/2020 1 1 Encounter Details Date Type Department Care Team (Latest Contact Info) Description 02/05/2020 Transcribe Orders [facility] Department [address] [place] [address] Manjinder Staples MD [address] [place] [address] [email or web address] Idiopathic chronic pancreatitis (Primary Dx) Social History [...] vessel. No other pathology is apparent. POS [id number] Narrative 02/19/2020 9:43 AM EDT TECHNIQUE: 1.5 [...] vessel. No other pathology is apparent. POS [id number] Manjinder Staples MD IMG MR ABDOMEN Final [...] documented as of this encounter Care Teams Inductor Tester Relationship Specialty Start Date End Date Erlin Pennington MD [address] [place] [address], [address] [place] [address] PCP - General 03/05/17 09/24/24 Marily Elkins NP [address] [place] [address] Historical LMR Provider 03/04/17 05/27/21 Iris Chamberlain MD 22 [facility], [address] [place] [address] Historical LMR Provider 03/04/17 05/27/21 Gilma Cornelius DO [address] [place] [address] Historical LMR Provider 03/04/17 2 Erlin Pennington MD [address] [place] [address], [address] [place] [address] Historical LMR Provider 03/04/17 5 Miriam Valladares MD [address] [place] [address] Historical LMR Provider 03/04/17 2 Artie Mayorga CNP 22 [facility], [address] [place] [address] Historical LMR Provider 03/04/17 documented as of this encounter Additional Source Comments The information contained in this document represents components of the legal health record. It is not the complete legal health record.[facility]
--- OUTSIDE RECORDS SUMMARY | 2025-02-22 10:37 | XMS_ITS | Encounter Summary ---
Author Organization [facility] Address [facility] [employer] [address] [address] Phone Care Team Providers Care Mixed Crop Farmer Name Role Phone Marily Elkins LINER MACHINE OPERATOR Unavailable [phone] Iris Chamberlain MD Unavailable Gilma Cornelius DO Unavailable [phone] Erlin Pennington MD Unavailable [phone] Miriam Valladares MD Unavailable [phone] Artie Mayorga CNP Unavailable Erlin Pennington MD Primary Care Provider [phone] Encounter Details Date Type Department Care Team (Late st Contact Info) Description 02/05/2020 Procedure Pass [facility], [address] [address] Social History Tobacco Use Types Packs/Day Years [...] documented as of this encounter Care Teams Mixed Crop Farmer Relationship Specialty Start Date End Date Erlin Pennington MD [address] [place] [address] PCP - General 03/05/17 09/24/24 Marily Elkins, RONI [address] [place] [address] Historical LMR Provider 03/04/17 05/27/21 Iris Chamberlain MD [address] [place] [address], [facility] [address] [place] [address] Historical LMR Provider 03/04/17 05/27/21 Gilma Cornelius DO [address] [place] [address] Historical LMR Provider 03/04/17 2 Erlin Pennington MD [address] [place] [address] Historical LMR Provider 03/04/17 5 Miriam Valladares MD [address] [place] [address] Historical LMR Provider 03/04/17 2 Artie Mayorga CNP 22 [facility], [address] [place] [address] [email or web address] Historical LMR Provider 03/04/17 documented as of this encounter Additional Source Comments The information contained in this document represents components of the legal health record. It is not the complete legal health record.[facility]
--- OUTSIDE RECORDS SUMMARY | 2025-02-22 10:38 | XMS_ITS | Patient Health Record ---
Author Organization [employer] [facility] Address [address] [place] [address] [address] [place] [address] Care Team Providers Care Mat Tester Name Role Phone VALERY MOREAU CNP Primary Care Provider TALISHA Mckenzie Unavailable [phone] Allergies Allergen (clinical drug ingredient) Drug/Non Drug [...] Status W/U Status Risk Notes Problem COVID-19 ([id number]) COVID-19 (U07.1) Active confirmed Vital Signs Temperature 98.0 degrees Fahrenheit 10/09/2024 Blood pressure diastolic 74 mm Hg 10/09/2024 Height 64 in 10/09/2024 Blood pressure systolic 110 mm Hg 10/09/2024 Weight 169 lbs 10/09/2024 BMI 29.01 kg/m2 10/09/2024 Encounters Encounter Location Date Provider Diagnosis [facility] [address] [place] [address] 06/12/2024 TALISHA SEGURAS Nonspecific low blood-pressure reading R03.1 [facility] [address] [facility] [address] [place] [address] 10/09/2024 TALISHA OKEEFE Encounter for gynecological examination (general) (routine) without abnormal findings Z01.419 ; Encounter for screening mammogram for malignant neoplasm of breast Z12.31 and Presence of (intrauterine) contraceptive device Z97.5 [facility] [address] [place] [address] 06/11/2024 TALISHA OKEEFE Assessments Encounter Date Diagnosis [...] Provider Name:TALISHA Dodson, 10/15/2025 03:00:00 PM, [address], [address], [place], [address], Insurance Providers Payer Name Payer Address Payer Phone Subscriber Number Group Number Insured Name Patient Relationship to Insured Coverage Start Date Coverage End Date [employer] [place] [address] [address] [place] [address] [id number] KUMAR GONSALVES Self - patient is the insured 3 Medical (General) History Medical History History ICD Code COVID-19 U07.1 Surgical History Surgery Date(Month/Year) Gladys teeth extraction 2006 Hospitalization History Reason Date(Month/Year) Childbirth
--- OUTSIDE RECORDS SUMMARY | 2025-02-22 10:38 | XMS_ITS | Encounter Summary ---
Author Organization [facility] Address [facility] [employer] [address] [address] Phone Care Team Providers Care Casting Trucker Name Role Phone Marily Elkins TAKER AWAY Unavailable [phone] Iris Chamberlain MD Unavailable Gilma Cornelius DO Unavailable [phone] Erlin Pennington MD Unavailable [phone] Miriam Valladares MD Unavailable [phone] Artie Mayorga CNP Unavailable Erlin Pennington MD Primary Care Provider Encounter Details Date Type Department Care Team (Latest Contact Info) Description 09/24/2018 Transcribe Orders [facility] Specimen Processing [address] [place] [address] Rashmi Gordon PA-C [address], [address] [place] [address] [email or web address] Acute pancreatitis, unspecified complication [...] Pancreatic Elastase, Stool (09/24/2018 6:52 PM EDT) [facility] ELASTASE 480 mcg/g [facility] Comment: (NOTE) Adult and Pediatric Reference Ranges for Pancreatic Elastase-1: Normal: >200 mcg/g Moderate Pancreatic Insufficiency: 100-200 mcg/g Severe Pancreatic Insufficiency: <100 mcg/g Elastase-1 (E-1) assay results are expressed in mcg/g, which represent mcg E1/g feces. It is not necessary to interrupt enzyme substitution therapy. Test Performed by: [employer] [place] [address] [place] [address] Stool (Stool) 09/24/2018 6:5 2 PM EDT 09/24/2018 6:54 PM EDT Rashmi Gordon PA-C BODY FLUIDS AND STOOLS ORDERABL ES Final Result [facility] documented in this encounter Visit Diagnoses Diagnosis Acute pancreatitis, unspecified complication status, unspecified pancreatitis type- Primary documented in this encounter Additional Health Concerns Infection Onset Date Last Indicated Resolved Time CoV-Exposed Comment:Recent close contact 05/30/2020 05/30/2020 06/13/2020 1:24 AM EST CoV-Presumed 10/01/2021 10/01/2021 10/22/2021 1:21 AM EDT documented as of this encounter Care Teams Casting Trucker Relationship Specialty Start Date End Date Erlin Pennington MD [address] [place] [address], [address] [place] [address] PCP - General 03/05/17 09/24/24 Marily Elkins NP [address] [place] [address] Historical LMR Provider 03/04/17 05/27/21 Iris Chamberlain MD 22 [facility], [address] [place] [address] Historical LMR Provider 03/04/17 05/27/21 Gilma Cornelius DO [address] [place] [address] Historical LMR Provider 03/04/17 2 Erlin Pennington MD [address] [place] [address], [address] [place] [address] [email or web address] Historical LMR Provider 03/04/17 5 Miriam Valladares MD [address] [place] [address] Historical LMR Provider 03/04/17 2 Artie Mayorga CNP [address] [place] [address], [address] [place] [address] [email or web address] Historical LMR Provider 03/04/17 documented as of this encounter Additional Source Comments The information contained in this document represents components of the legal health record. It is not the complete legal health record.[facility]
--- OUTSIDE RECORDS SUMMARY | 2025-02-22 10:38 | XMS_ITS | Clinical Summary ---
Author Organization [facility] Address [address] [place] [address] Phone Care Team Providers Care Race Car Driver Name Role Phone Tiffany Daria TUTTLE Primary Care Provider Encounters Date Type Department Care Team Description 11/24/2024 2:09 PM EDT - 11/24/2024 11:59 PM EDT Hospital Encounter [facility] Xray [address] [place] [address] Syncope and collapse Discharge Disposition: [...] (2 of 2 - PCV) 05/06/2007 05/06/2006 HPV Vaccines (1 - 3-dose SCDM series) 10/15/2010 Depression Screening 05/20/2024 HIV Screening 09/22/2024 Hepatitis [...] inal Result from Last 3 Months Insurance [place] [employer] [facility] Care Teams Race Car Driver Relationship Specialty Start Date End Date Daria Allen FNP [address] [address] PCP - General Internal Medicine 11/24/24
--- OUTSIDE RECORDS SUMMARY | 2025-02-22 10:38 | XMS_ITS | Encounter Summary ---
Author Organization [facility] Address [facility] [employer] [address] [address] Phone Care Team Providers Care Personal Injury Litigation Paralegal Name Role Phone Marily Elkins ASSEMBLER CRIMPER Unavailable [phone] Iris Chamberlain MD Unavailable Gilma Cornelius DO Unavailable [phone] Erlin Pennington MD Unavailable [phone] Miriam Valladares MD Unavailable [phone] Artie Mayorga CNP Unavailable [phone] Erlin Pennington MD Primary Care Provider Encounter Details Date Type Department Care Team (Latest Contact Info) Description 07/23/[address] [facility] Laboratory [address] [id number] Leydi Durham PA 10 [place] [address] Acute pancreatitis, unspecified complication status, unspecified pancreatitis [...] EST) WBC 8.02 4.00 - 11.00 K/uL [facility] Comment:Note Reference Range updates to all CBC and Differential results. RBC 4.64 3.72 - 5.30 M/uL [facility] HGB 14.8 10.6 - 15.5 g/dL [facility] Comment:Note updated Referen ce Ranges for all CBC and Differential results. HCT 43.3 32.0 - 45.0 % [facility] PLT 248 140 - 430 K/uL [facility] MCV 93.3 78.0 - 97.0 fL [facility] MCH 31.9 25.0 - 33.0 pg [facility] MCHC 34.2 32.0 - 36.0 g/dL [facility] RDW 12.6 11.0 - 16.0 % [facility] MPV 10.5 8.4 - 12.8 fl [facility] NRBC 0.00 0 /100 WBCs [facility] ABSOLUTE NRBC 0.00 0 K/uL [facility] Blood 07/23/2019 11:5 6 AM EST 07/23/2019 12:01 PM EST us Le[facility] BLOOD ORDERABLES Final Result Performing Organization Address City/State/[facility] Co de Phone Number [address] [address] * (ABNORMAL) IgG subclasses (07/23/2019 11:56 AM EST) IGG 1 509 341 - 894 mg/dL [facility]PATH [address] IGG 2 598 171 - 632 mg/dl [facility]PATH [address] IGG 3 88.3 18.4 - 106.0 mg/dl [facility]PATH [address] IGG 4 212.0(H) 2.4 - 121.0 mg/dl [facility] [address] [facility]/PATH [address] TOTAL IGG 1,360 767 - 1,590 mg/dl [facility] [address] [facility] [address] Blood 07/23/2019 11:5 6 AM EST 07/23/2019 12:01 PM EST Le[facility] BLOOD ORDERABLES Final Result Performing Organization Address City/[facility] Co de Phone Number [facility] LAB MED/[address] [place] [address] * Lipase (07/23/2019 11:56 AM EST) LIPASE 47 16 - 63 U/L [facility] Blood 07/23/2019 11:5 6 AM EST 07/23/2019 12:01 PM EST Leydi [facility] BLOOD ORDERABLES Final Result Performing Organization Address [facility] de Phone Number [address] [address] documented in this encounter Visit Diagnoses Diagnosis [...] documented as of this encounter Care Teams Personal Injury Litigation Paralegal Relationship Specialty Start Date End Date Erlin Pennington MD [address] [place] [address], [address] [place] [address] PCP - General 03/05/17 09/24/24 Marily Elkins NP [address] [place] [address] [email or web address] Historical LMR Provider 03/04/17 05/27/21 Iris Chamberlain MD 22 [facility], [address] [place] [address] Historical LMR Provider 03/04/17 05/27/21 Gilma Cornelius DO [address] [place] [address] Historical LMR Provider 03/04/17 2 Erlin Pennington MD [address] [place] [address], [address] [place] [address] [email or web address] Historical LMR Provider 03/04/17 5 Miriam Valladares MD [address] [place] [address] Historical LMR Provider 03/04/17 2 Artie Mayorga CNP [address] [place] [address], [address] [place] [address] [email or web address] Historical LMR Provider 03/04/17 documented as of this encounter Additional Source Comments The information contained in this document represents components of the legal health record. It is not the complete legal health record.[facility]
--- OUTSIDE RECORDS SUMMARY | 2025-02-22 10:38 | XMS_ITS | Clinical Summary ---
Author Organization [facility] Address [address] [address] Phone Care Team Providers Care Fiberglass Dowel Drawing Operator Name Role Phone Unavailable Primary Care Provider Unavailabl e Allergies Active Allergy Reactions Criticality Noted Date Comments Bupropion Hcl Other (See Comments) Low 10/02/2016 Per pt report: [place] out of it Cat's Claw (Uncaria Tomentosa) Hives 10/02/2016 Codeine Phosphate GI Upset Low 10/02/2016 Erythromycin Hives 10/02/2016 Fluoxetine Other (See Comments) Low 10/02/2016 Per pt report: [place] out [facility] it Sertraline Hcl Other (See Comments) Low 10/02/2016 Per pt report: [place] out of it Sulfamethoxazole-Trime thoprim Nausea and/or [...] (06/26/2019 10:04 AM EST): Previously evaluated at [facility] with EUS, reportedly normal. Recommend follow [...] this topic Medical Devices Implanted Type Area Bounty Trapper Device Identifier Shelf Expiration Date Model / [...] SEE NARRATIVE - 05/31/2020 9:47 [place] [address] Elastic Attacher Zigzag: Ely Carver MD NAVAL SURFACE FIRE SUPPORT PLANNER Cytology Report FINAL DIAGNOSIS A. PAP SMEAR [...] 52, 56, 58, 59, 66, 68) by [employer] On[employer]arity HR-HPV analysis. Clinical correlation is advised. This HPV test was performed at [facility], [address] [place] [address]. This test has been FDA approved for [facility] cervical cytology specimens. The accuracy and precision of this test for all other specimen sources has been verified in the Cytopathology Laboratory of the [facility] and has not been cleared or approved by the U.S. Food and Drug Administration. Clinical correlation is advised. CLINICAL HISTORY Date of Last Menstrual Period: 05-22-2020 Contraceptive History: IUD Other Clinical Conditions: Screening Pap SPECIMEN SOURCE A: PAP SMEAR ([facility]) CE Patient Name: KUMAR MADSEN : 1985 (Age: 34) Sex: F Institution: [facility] Location: [facility] Date of Collection: 05/26/2020 Date of Reported: 05/30/2020 15:22 Results to: Anita Hope MD Anita Hope MD CYTOLOGY ORDERABLES Edited Re sult - Final SEE NARRATIVE from Last 3 Months or Most Recently Relevant to Health Maintenance [place] [address] [place] [address] OUT [facility] PPO [facility] PPO [facility] OUT [facility] PPO [facility] PPO [facility] OUT OF [facility] Advance Directives For more information, please contact: [phone] (9AM - 5PM [place], Saturday-Saturday) Documents on File Type Date Recorded Patient Power Shovel Operator Expl [facility] Healthcare Proxy 10/21/2018 [facility] Care Proxy (10/15/18) Additional Source Comments The information contained in this document represents components of the legal health record. It is not the complete legal health record.[facility]
== END 2025-02-22 10:39 | disposition home or self-care (01) ==
PROVIDERS: PCP Nurse Practitioner Family; Visit Provider Physician Assistant Medical
DX: R21 Rash and other nonspecific skin eruption (principal)

== ENCOUNTER 2025-03-11 13:57 | Outpatient (REF) | payer OTHER, SELFPAY ==
--- OUTSIDE RECORDS SUMMARY | 2025-03-11 17:50 | XMS_ITS | Encounter Summary ---
Author Organization [facility] Address [facility] [employer] [address] [address] Phone Care Team Providers Care Department Head [employer] Name Role Phone Marily Elkins MACHINE SHOP HELPER Unavailable [phone] Iris Chamberlain MD Unavailable Gilma Cornelius DO Unavailable [phone] Erlin Pennington MD Unavailable [phone] Miriam Valladares MD Unavailable [phone] Artie Mayorga CNP Unavailable Erlin Pennington MD Primary Care Provider Encounter Details Date Type Department Care Team (Latest Contact Info) Description 12/20/2017 Transcribe Orders [facility] Laboratory [address] [place] [address] Leydi Durham PA 10 [place] [address] Diagnosis unknown (Primary Dx) Social History Tobacco [...] EDT) LIPASE 60 16 - 63 U/L [facility] Blood 12/20/2017 5:11 PM EDT 12/20/2017 5:14 PM EDT us Leydi [facility] LAB BLOOD ORDERABLES Final Result [address] [address] * Comprehensive metabolic panel (12/20/2017 5:11 PM EDT) SODIUM 139 133 - 146 mmol/L [facility] POTASSIUM 3.8 3.3 - 5.1 mmol/L [facility] CHLORIDE 102 96 - 108 mmol/L [facility] CO2 24 21 - 35 mmol/L [facility] BUN 16 6 - 19 mg/dL [facility] CREATININE 0.90 0.5 - 1.5 mg/dL [facility] GLUCOSE 87 70 - 99 mg/dL [facility] ALBUMIN 4.2 3.9 - 4.8 g/dL [facility] TOTAL PROTEIN 7.1 6.5 - 8.0 g/dL [facility] CALCIUM 8.5 8.4 - 10.3 mg/dL [facility] ALKALINE PHOSPHATASE 51 39 - 117 U/L [facility] TOTAL BILIRUBIN 0.3 0.0 - 1.2 mg/dL [facility] AST 17 0 - 37 U/L [facility] ALT 12 0 - 40 U/L [facility] GLOBULIN 2.9 1 - 4.8 g/dL [facility] EGFR 83 >59 mL/min/1.7 3m2 [facility] Comment:If patient is black, multiply result by 1.159. Estimated glomerular filtration rate calculated using the CKD-EPI equation. ANION GAP 17 10 - 20 mmol/L [facility] Blood 12/20/2017 5:11 PM EDT 12/20/2017 5:14 PM EDT us Leydi [facility] BLOOD ORDERABLES Final Result [address] [place] [address] * (ABNORMAL) CBC and differential (12/20/2017 5:11 PM EDT) WBC 6.62 3.40 - 11.20 K/uL [facility] RBC 4.36 3.80 - 4.80 M/uL [facility] HGB 14.3 12.0 - 15.0 g/dL [facility] HCT 40.6 36.0 - 46.0 % [facility] PLT 252 130 - 400 K/uL [facility] MCV 93.1 79.0 - 98.0 fL [facility] MCH 32.8 27.0 - 34.8 pg [facility] MCHC 35.2 31.5 - 36.0 g/dL [facility] RDW 12.2 10.8 - 14.6 % [facility] MPV 10.5 9.4 - 12.4 fl [facility] NRBC 0.00 /100 WBCs [facility] ABSOLUTE NRBC 0.00 K/uL [facility] DIFF METHOD Auto [facility] NEUTS 47.5 45.30 - 77.70 % [facility] LYMPHS 42.7(H) 12.30 - 39.70 % [facility] MONOS 5.3 4.10 - 12.80 % [facility] EOS 3.2 0 - 7.2 % [facility] BASOS 1.1 0 - 2.80 % [facility] Granulocytes, immature (%) 0.2 0.0 - 0.9 % [facility] ABSOLUTE NEUTS 3.15 1.40 - 7.70 K/uL [facility] ABSOLUTE LYMPHS 2.83 0.60 - 3.20 K/uL [facility] ABSOLUTE MONOS 0.35 0.11 - 0.59 K/uL [facility] ABSOLUTE EOS 0.21 0.01 - 0.50 K/uL [facility] ABSOLUTE BASOS 0.07 0.00 - 0.08 K/uL [facility] Granulocytes, immature 0.01 0.00 - 0.05 K/uL [facility] Blood 12/20/2017 5:11 PM EDT 12/20/2017 5:14 PM EDT us Leydi [facility] LAB BLOOD ORDERABLES Final Result [address] [address] documented in this encounter Visit Diagnoses Diagnosis Diagnosis unknown- Primary documented in this encounter Additional Health Concerns Infection Onset Date Last Indicated Resolved Time CoV-Exposed Comment:Recent close contact 05/30/2020 05/30/2020 06/13/2020 1:24 AM EST CoV-Presumed 10/01/2021 10/01/2021 10/22/2021 1:21 AM EDT documented as of this encounter Care Teams Department Head [employer] Relationship Specialty Start Date End Date Erlin Pennington MD [address] [place] [address], [address] [address] PCP - General 03/05/17 09/24/24 Marily Elkins NP [address] [place] [address] Historical LMR Provider 03/04/17 05/27/21 Iris Chamberlain MD [address] [place] [address], [address] [address] Historical LMR Provider 03/04/17 05/27/21 Gilma Cornelius DO [address] [place] [address] Historical LMR Provider 03/04/17 2 Erlin Pennington MD [address] [place] [address] Historical LMR Provider 03/04/17 5 Miriam Valladares MD [address] [place] [address] Historical LMR Provider 03/04/17 2 Artie Mayorga CNP 22 [facility], [address] [place] [address] [email or web address] Historical LMR Provider 03/04/17 documented as of this encounter Additional Source Comments The information contained in this document represents components of the legal health record. It is not the complete legal health record.[facility]
--- OUTSIDE RECORDS SUMMARY | 2025-03-11 17:50 | XMS_ITS | Encounter Summary ---
Author Organization [facility] Address [address] [address] Phone Care Team Providers Care Granulating Blender Name Role Phone Marily Elkins SCHEDULE ANNOUNCER Unavailable [phone] Iris Chamberlain MD Unavailable Gilma Cornelius DO Unavailable [phone] Erlin Pennington MD Unavailable [phone] Miriam Valladares MD Unavailable [phone] Artie Mayorga CNP Unavailable Erlin Pennington MD Primary Care Provider [phone] Encounter Details Date Type Department Care Team (Late st Contact Info) Description 04/21/2018 Ancillary Orders Virtual Department [address] [place] [address] Gokul Stevens MD [address] [place] [address] [email or web address] Social History Tobacco Use Types Packs/Day Years [...] documented as of this encounter Care Teams Granulating Blender Relationship Specialty Start Date End Date Erlin Pennington MD [address] [place] [address], [address] [place] [address] PCP - General 03/05/17 09/24/24 Marily Elkins NP [address] [place] [address] Historical LMR Provider 03/04/17 05/27/21 Iris Chamberlain MD [address] [place] [address], [address] [address] Historical LMR Provider 03/04/17 05/27/21 Gilma Cornelius DO [address] [place] [address] Historical LMR Provider 03/04/17 2 Erlin Pennington MD [address] [place] [address] Historical LMR Provider 03/04/17 5 Miriam Valladares MD [address] [place] [address] Historical LMR Provider 03/04/17 2 Artie Mayorga CNP [address] [place] [address], [address] [place] [address] [email or web address] Historical LMR Provider 03/04/17 documented as of this encounter Additional Source Comments The information contained in this document represents components of the legal health record. It is not the complete legal health record.[facility]
--- OUTSIDE RECORDS SUMMARY | 2025-03-11 17:50 | XMS_ITS | Encounter Summary ---
Author Organization [facility] Address [facility] [employer] [address] [address] Phone Care Team Providers Care Television Analyzer Name Role Phone Marily Elkins CRAYON GRADER Unavailable [phone] Iris Chamberlain MD Unavailable Gilma Cornelius DO Unavailable [phone] Erlin Pennington MD Unavailable [phone] Miriam Valladares MD Unavailable [phone] Artie Mayorga CNP Unavailable Erlin Pennington MD Primary Care Provider [phone] Encounter Details Date Type Department Care Team (Late st Contact Info) Description 02/05/2020 Procedure Pass [facility], [address] [address] Social History Tobacco Use Types Packs/Day Years [...] documented as of this encounter Care Teams Television Analyzer Relationship Specialty Start Date End Date Erlin Pennington MD [address] [place] [address] PCP - General 03/05/17 09/24/24 Marily Elkins, RONI [address] [place] [address] Historical LMR Provider 03/04/17 05/27/21 Iris Chamberlain MD [address] [place] [address], [address] [place] [address] Historical LMR Provider 03/04/17 05/27/21 Gilma Cornelius DO [address] [place] [address] Historical LMR Provider 03/04/17 2 Erlin Pennington MD [address] [place] [address] Historical LMR Provider 03/04/17 5 Miriam Valladares MD [address] [place] [address] Historical LMR Provider 03/04/17 2 Artie Mayorga CNP 22 [facility], [address] [place] [address] [email or web address] Historical LMR Provider 03/04/17 documented as of this encounter Additional Source Comments The information contained in this document represents components of the legal health record. It is not the complete legal health record.[facility]
--- OUTSIDE RECORDS SUMMARY | 2025-03-11 17:50 | XMS_ITS | Encounter Summary ---
Author Organization [facility] Address [address] [place] [address] Phone Care Team Providers Care Informatics Coordinator Name Role Phone Marily Elkins STATISTICAL GENETICIST Unavailable [phone] Iris Chamberlain MD Unavailable Gilma Cornelius DO Unavailable [phone] Erlin Peninngton MD Unavailable [phone] Miriam Valladares MD Unavailable [phone] Artie Mayorga CNP Unavailable [phone] Erlin Pennington MD Primary Care Provider [phone] Reason for Referral * MRI/CAT Scan - Closed Specialty Diagnoses / Procedures Referred By Contac t Referred To Contact Radiology Diagnoses Idiopathic chronic pancreatitis Procedures MRI Cholangiopancreatography (MRCP) Manjinder Staples MD Phone: tel: fax: [email or web address] Referral ID Status Reason Start Date Expiration Date Visits Re quested Visits Authorized [id number] Closed 02/04/2020 08/02/2020 1 1 Encounter Details Date Type Department Care Team (Latest Contact Info) Description 02/05/[address] [facility] Department [address] [place] [address] Manjinder Staples MD [address] [place] [address] [email or web address] Idiopathic chronic pancreatitis (Primary Dx) Social History [...] vessel. No other pathology is apparent. POS [id number] Narrative 02/19/2020 9:43 AM EDT TECHNIQUE: 1.5 [...] vessel. No other pathology is apparent. POS [id number] Manjinder Staples MD IMG MR ABDOMEN Final [...] documented as of this encounter Care Teams Informatics Coordinator Relationship Specialty Start Date End Date Erlin Pennington MD [address] [place] [address], [address] [place] [address] PCP - General 03/05/17 09/24/24 Marily Elkins NP [address] [place] [address] Historical LMR Provider 03/04/17 05/27/21 Iris Chamberlain MD 22 [facility], [address] [place] [address] Historical LMR Provider 03/04/17 05/27/21 Gilma Cornelius DO [address] [place] [address] Historical LMR Provider 03/04/17 2 Erlin Pennington MD [address] [place] [address], [address] [place] [address] Historical LMR Provider 03/04/17 5 Miriam Valladares MD [address] [place] [address] Historical LMR Provider 03/04/17 2 Artie Mayorga CNP 22 [facility], [address] [place] [address] Historical LMR Provider 03/04/17 documented as of this encounter Additional Source Comments The information contained in this document represents components of the legal health record. It is not the complete legal health record.[facility]
--- OUTSIDE RECORDS SUMMARY | 2025-03-11 17:50 | XMS_ITS | Encounter Summary ---
Author Organization [facility] Address [address] [employer] [address] [address] Phone Care Team Providers Care Tugboat Mate Name Role Phone Marily Elkins TELETYPIST Unavailable [phone] Iris Chamberlain MD Unavailable Gilma Cornelius DO Unavailable Erlin Pennington MD Unavailable [phone] Miriam Valladares MD Unavailable [phone] Artie Mayorga CNP Unavailable Erlin Pennington MD Primary Care Provider Encounter Details Date Type Department Care Team (Latest Contact Info) Description 04/21/2018 Ancillary Orders Virtual Department 30 [place] [address] Gokul Stevens MD [address] [place] [address] [email or web address] Chronic pancreatitis, unspecified pancreatitis type Social History [...] right lobe of the liver. POS - [id number] Narrative 05/14/2018 12:10 PM EST US ABDOMEN [...] right lobe of the liver. POS - [id number] us Gokul Stevens MD IMG US ABDOMEN [...] documented as of this encounter Care Teams Tugboat Mate Relationship Specialty Start Date End Date Erlin Pennington MD [address] [place] [address], [address] [place] [address] PCP - General 03/05/17 09/24/24 Marily Elkins NP [address] [place] [address] Historical LMR Provider 03/04/17 05/27/21 Iris Chamberlain MD [address] [place] [address], [address] [place] [address] Historical LMR Provider 03/04/17 05/27/21 Gilma Cornelius DO 30 [place] [address] Historical LMR Provider 03/04/17 2 Erlin Pennington MD 22 [facility], [address] [place] [address] Historical LMR Provider 03/04/17 5 Miriam Valladares MD [address] [place] [address] Historical LMR Provider 03/04/17 2 Artie Mayorga CNP 22 [facility], [address] [place] [address] [email or web address] Historical LMR Provider 03/04/17 documented as of this encounter Additional Source Comments The information contained in this document represents components of the legal health record. It is not the complete legal health record.[facility]
--- OUTSIDE RECORDS SUMMARY | 2025-03-11 17:51 | XMS_ITS | Clinical Summary ---
Author Organization [facility] Address [address] [employer] [address] [address] Phone Care Team Providers Care Automobile Body Repair Supervisor Name Role Phone Unavailable Primary Care Provider Unavailabl e Allergies Active Allergy Reactions Criticality Noted Date Comments Bupropion Hcl Other (See Comments) Low 10/02/2016 Per pt report: [place] out of it Cat's Claw (Uncaria Tomentosa) Hives 10/02/2016 Codeine Phosphate GI Upset Low 10/02/2016 Erythromycin Hives 10/02/2016 Fluoxetine Other (See Comments) Low 10/02/2016 Per pt report: [place] out of it Sertraline Hcl Other (See Comments) Low 10/02/2016 Per pt report: [place] out of it Sulfamethoxazole-Trime thoprim Nausea and/or [...] (06/26/2019 10:04 AM EST): Previously evaluated at [facility] with EUS, reportedly normal. Recommend follow [...] this topic Medical Devices Implanted Type Area Lmsw Device Identifier Shelf Expiration Date Model / [...] SEE NARRATIVE - 05/31/2020 9:47 [place] [address] Time Study Technician: Ely Carver MD BATCH MIXING TRUCK DRIVER Cytology Report FINAL DIAGNOSIS A. PAP SMEAR [...] 52, 56, 58, 59, 66, 68) by [employer] Onclarity HR-HPV analysis. Clinical correlation is advised. This HPV test was performed at [facility], [address] [place] [address]. This test has been FDA approved for SurePath cervical cytology specimens. The accuracy and precision of this test for all other specimen sources has been verified in the Cytopathology Laboratory of the [facility] and has not been cleared or approved by the U.S. Food and Drug Administration. Clinical correlation is advised. CLINICAL HISTORY Date of Last Menstrual Period: 05-22-2020 Contraceptive History: IUD Other Clinical Conditions: Screening Pap SPECIMEN SOURCE A: PAP SMEAR (SUREPATH) CE Patient Name: KUMAR MADSEN : 1985 (Age: 34) Sex: F Institution: [facility] Location: [facility] Date of Collection: 05/26/2020 Date of Reported: 05/30/2020 15:22 Results to: Anita Hope MD Anita Hope MD CYTOLOGY ORDERABLES Edited Re sult - Final SEE NARRATIVE from Last 3 Months or Most Recently Relevant to Health Maintenance [place] [address] OUT [facility] PPO [facility] PPO [facility] OUT [facility] OUT OF [facility] PPO [facility] PPO [facility] PPO [facility] OUT OF [facility] P[facility] Advance Directives For more information, please contact: [phone] (9AM - 5PM [place], Saturday-Saturday) Documents on File Type Date Recorded Patient Power Generation Turbine Room Operator Expl [facility] Pro[facility] 10/21/2018 [facility] Proxy (10/15/18) Additional Source Comments The information contained in this document represents components of the legal health record. It is not the complete legal health record.[facility]
--- OUTSIDE RECORDS SUMMARY | 2025-03-11 17:51 | XMS_ITS | Encounter Summary ---
Author Organization [facility] Address [facility] [employer] [address] [address] Phone Care Team Providers Care Nut Picker Name Role Phone Marily Elkins FLYING SQUAD WORKER Unavailable [phone] Iris Chamberlain MD Unavailable Gilma Cornelius DO Unavailable [phone] Erlin Pennington MD Unavailable [phone] Miriam Valladares MD Unavailable [phone] Artie Mayorga CNP Unavailable [phone] Erlin Pennington MD Primary Care Provider Encounter Details Date Type Department Care Team (Latest Contact Info) Description 07/23/2019 Transcribe Orders [facility] Laboratory [address] [id number] Leydi Durham PA 10 [place] [address] Acute pancreatitis, unspecified complication status, unspecified pancreatitis [...] EST) WBC 8.02 4.00 - 11.00 K/uL [facility] Comment:Note Reference Range updates to all CBC and Differential results. RBC 4.64 3.72 - 5.30 M/uL [facility] HGB 14.8 10.6 - 15.5 g/dL [facility] Comment:Note updated Referen ce Ranges for all CBC and Differential results. HCT 43.3 32.0 - 45.0 % [facility] PLT 248 140 - 430 K/uL [facility] MCV 93.3 78.0 - 97.0 fL [facility] MCH 31.9 25.0 - 33.0 pg [facility] MCHC 34.2 32.0 - 36.0 g/dL [facility] RDW 12.6 11.0 - 16.0 % [facility] MPV 10.5 8.4 - 12.8 fl [facility] NRBC 0.00 0 /100 WBCs [facility] ABSOLUTE NRBC 0.00 0 K/uL [facility] Blood 07/23/2019 11:5 6 AM EST 07/23/2019 12:01 PM EST us Leydi TERRY LAB BLOOD ORDERABLES Final Result Performing Organization Address City/State/[facility] Co de Phone Number [address] [address] * (ABNORMAL) IgG subclasses (07/23/2019 11:56 AM EST) IGG 1 509 341 - 894 mg/dL [facility] [address] IGG 2 598 171 - 632 mg/dl [facility]PATH [address] IGG 3 88.3 18.4 - 106.0 mg/dl [facility]PATH [address] IGG 4 212.0(H) 2.4 - 121.0 mg/dl [facility] [address] TOTAL IGG 1,360 767 - 1,590 mg/dl [facility] [address] Blood 07/23/2019 11:5 6 AM EST 07/23/2019 12:01 PM EST Leydi TERRY LAB BLOOD ORDERABLES Final Result Performing Organization Address City/[facility] Co de Phone Number [facility] LAB MED/[address] [place] [address] * Lipase (07/23/2019 11:56 AM EST) LIPASE 47 16 - 63 U/L [facility] Blood 07/23/2019 11:5 6 AM EST 07/23/2019 12:01 PM EST Leydi TERRY LAB BLOOD ORDERABLES Final Result Performing Organization Address [facility] de Phone Number [address] [address] documented in this encounter Visit Diagnoses Diagnosis [...] documented as of this encounter Care Teams Nut Picker Relationship Specialty Start Date End Date Erlin Pennington MD [address] [place] [address], [address] [place] [address] PCP - General 03/05/17 09/24/24 Marily Elkins NP [address] [place] [address] [email or web address] Historical LMR Provider 03/04/17 05/27/21 Iris Chamberlain MD 22 [facility], [address] [place] [address] Historical LMR Provider 03/04/17 05/27/21 Gilma Cornelius DO [address] [place] [address] Historical LMR Provider 03/04/17 2 Erlin Pennington MD [address] [place] [address], [address] [place] [address] [email or web address] Historical LMR Provider 03/04/17 5 Miriam Valladares MD [address] [place] [address] Historical LMR Provider 03/04/17 2 Artie Mayorga CNP [address] [place] [address], [address] [place] [address] [email or web address] Historical LMR Provider 03/04/17 documented as of this encounter Additional Source Comments The information contained in this document represents components of the legal health record. It is not the complete legal health record.[facility]
--- OUTSIDE RECORDS SUMMARY | 2025-03-11 17:51 | XMS_ITS | Clinical Summary ---
Author Organization [facility] Address [address] [place] [address] Phone Care Team Providers Care Aircraft Manager Name Role Phone TiffanyManuelajim Brown PLUSH DRESSER Primary Care Provider Social History Tobacco Use Types Packs/Day Years [...] 05/06/2021, 07/08/2020, 06/03/2020 Influenza Vaccine (#1) 2025 , 04/15/2022, 03/06/2021, Additional history exists DTaP,Tdap,and Td [...] patient's age to complete this topic Insurance [employer] [facility] Care Teams Aircraft Manager Relationship Specialty Start Date End Date Daria Allen FNP [address] [place] [phone] PCP - General Internal Medicine 11/24/24
--- OUTSIDE RECORDS SUMMARY | 2025-03-11 17:51 | XMS_ITS | Encounter Summary ---
Author Organization [facility] Address Pending sale to [facility] [address] [address] Phone Care Team Providers Care Check Airman Name Role Phone Marily Elkins LOAN SERVICE OFFICER Unavailable [phone] Iris Chamberlain MD Unavailable Gilma Cornelius DO Unavailable [phone] Erlin Pennington MD Unavailable [phone] Miriam Valladares MD Unavailable [phone] Artie Mayorga CNP Unavailable [phone] Erlin Pennington MD Primary Care Provider Encounter Details Date Type Department Care Team (Latest Contact Info) Description 01/28/2020 Transcribe Orders [facility] Laboratory [address] [place], [place] [id number] Manjinder Staples MD 10 [facility] 2 [place] [address] [email or web address] Chronic pancreatitis, unspecified pancreatitis type (Primary Dx) [...] REACTIVE PROTEIN <0.3 0.0 - 4.0 mg/L [facility] Blood 01/28/2020 2:03 PM EDT 01/28/2020 2:07 PM EDT us Manjinder Staples MD LAB BLOOD ORDERABLES Final R esult [facility] [address] [place] [address] * Comprehensive metabolic panel (01/28/2020 2:03 PM EDT) SODIUM 138 133 - 146 mmol/L [facility] POTASSIUM 4.3 3.3 - 5.1 mmol/L [facility] CHLORIDE 104 96 - 108 mmol/L [facility] CO2 24 21 - 35 mmol/L [facility] BUN 13 6 - 19 mg/dL [facility] CREATININE 0.70 0.5 - 1.5 mg/dL [facility] GLUCOSE 95 70 - 99 mg/dL [facility] ALBUMIN 4.3 3.9 - 4.8 g/dL [facility] TOTAL PROTEIN 7.1 6.5 - 8.0 g/dL [facility] CALCIUM 9.3 8.4 - 10.3 mg/dL [facility] ALKALINE PHOSPHATASE 50 39 - 117 U/L [facility] TOTAL BILIRUBIN 0.3 0.0 - 1.2 mg/dL [facility] AST 29 0 - 37 U/L [facility] ALT 13 0 - 40 U/L [facility] GLOBULIN 2.8 1 - 4.8 g/dL [facility] EGFR 111 >59 mL/min/1.7 3m2 [facility] Comment:Estimated glomerular filtration rate calculated using the CKD-EPI equation. ANION GAP 14 10 - 20 mmol/L [facility] Blood 01/28/2020 2:03 PM EDT 01/28/2020 2:07 PM EDT us Manjinder Staples MD LAB BLOOD ORDERABLES Final R esult [address] [address] * CBC (01/28/2020 2:03 PM EDT) WBC 5.52 4.00 - 11.00 K/uL [facility] Comment:Note Reference Range updates to all CBC and Differential results. RBC 4.67 3.72 - 5.30 M/uL [facility] HGB 14.9 10.6 - 15.5 g/dL [facility] Comment:Note updated Referen ce Ranges for all CBC and Differential results. HCT 44.2 32.0 - 45.0 % [facility] PLT 252 140 - 430 K/uL [facility] MCV 94.6 78.0 - 97.0 fL [facility] MCH 31.9 25.0 - 33.0 pg [facility] MCHC 33.7 32.0 - 36.0 g/dL [facility] RDW 12.3 11.0 - 16.0 % [facility] MPV 10.6 8.4 - 12.8 fl [facility] NRBC 0.00 0 /100 WBCs [facility] ABSOLUTE NRBC 0.00 0 K/uL [facility] Blood 01/28/2020 2:0 3 PM EDT 01/28/2020 2:07 PM EDT us Manjinder Staples MD LAB BLOOD ORDERABLES Final R esult [address] [address] * Lipase (01/28/2020 2:03 PM EDT) LIPASE 57 16 - 63 U/L [facility] Blood 01/28/2020 2:03 PM EDT 01/28/2020 2:07 PM EDT us Manjinder Staples MD LAB BLOOD ORDERABLES Final R esult [address] [address] * (ABNORMAL) Amylase (01/28/2020 2:03 PM EDT) AMYLASE 104(H) 28 - 100 U/L [facility] Blood 01/28/2020 2:03 PM EDT 01/28/2020 2:07 PM EDT us Manjinder Staples MD LAB BLOOD ORDERABLES Final R esult Performing Organization Address [facility] Co de Phone Number [address] [address] documented in this encounter Visit Diagnoses Diagnosis [...] documented as of this encounter Care Teams Check Airman Relationship Specialty Start Date End Date Erlin Pennington MD [address] [place] [address], [address] [place] [address] PCP - General 03/05/17 09/24/24 Marily Elkins NP [address] [place] [address] Historical LMR Provider 03/04/17 05/27/21 Iris Chamberlain MD [address] [place] [address], [address] [place] [address] Historical LMR Provider 03/04/17 05/27/21 Gilma Cornelius DO [address] [place] [address] Historical LMR Provider 03/04/17 2 Erlin Pennington MD [address] [place] [address], [address] [place] [address] [email or web address] Historical LMR Provider 03/04/17 5 Miriam Valladares MD [address] [place] [address] Historical LMR Provider 03/04/17 2 Artie Mayorga CNP [address] [place] [address], [address] [place] [address] [email or web address] Historical LMR Provider 03/04/17 documented as of this encounter Additional Source Comments The information contained in this document represents components of the legal health record. It is not the complete legal health record.[facility]
--- OUTSIDE RECORDS SUMMARY | 2025-03-11 17:51 | XMS_ITS | Patient Health Record ---
Author Organization [employer] [facility] Address [address] [place] [address] [address] [place] [address] Care Team Providers Care Integrated Logistics Operations Manager Name Role Phone VALERY MOREAU CNP Primary Care Provider TALISHA Mckenzie Unavailable [phone] Allergies Allergen (clinical drug ingredient) Drug/Non Drug [...] Status W/U Status Risk Notes Problem COVID-19 ([id number]) COVID-19 (U07.1) Active confirmed Vital Signs Temperature 98.0 degrees Fahrenheit 10/09/2024 Blood pressure diastolic 74 mm Hg 10/09/2024 Height 64 in 10/09/2024 Blood pressure systolic 110 mm Hg 10/09/2024 Weight 169 lbs 10/09/2024 BMI 29.01 kg/m2 10/09/2024 Encounters Encounter Location Date Provider Diagnosis Total [facility] [address] [place] [address] 06/11/2024 TALISHA OKEEFE [facility] [address] [facility] [address] [place] [address] 06/12/2024 TALISHA OKEEFE Nonspecific low blood-pressure reading R03.1 [facility] [address] [facility] [address] [place] [address] 10/09/2024 TALISHA OKEEFE Encounter for gynecological examination [...] 3D 2024 Next Appt Details Provider Name:TALISHA Carbone IMELDA Dodson, 10/15/2025 03:00:00 PM, [address], [place], [address], Insurance Providers Payer Name Payer Address Payer Phone Subscriber Number Group Number Insured Name Patient Relationship to Insured Coverage Start Date Coverage End Date [employer] [place] [address] [address] [place] [address] [id number] KUMAR GONSALVES Self - patient is the insured 3 Medical (General) History Medical History History ICD Code COVID-19 U07.1 Surgical History Surgery Date(Month/Year) [place] teeth extraction 2006 Hospitalization History Reason Date(Month/Year) Childbirth
--- OUTSIDE RECORDS SUMMARY | 2025-03-11 17:51 | XMS_ITS | Encounter Summary ---
Author Organization [facility] Address [facility] [employer] [address] [address] Phone Care Team Providers Care Architect Marine Name Role Phone Marily Elkins COIN MACHINE MECHANIC Unavailable [phone] Iris Chamberlain MD Unavailable Gilma Cornelius DO Unavailable [phone] Erlin Pennington MD Unavailable [phone] Miriam Valladares MD Unavailable [phone] Artie Mayorga CNP Unavailable rElin Pennington MD Primary Care Provider Encounter Details Date Type Department Care Team (Latest Contact Info) Description 09/24/2018 Transcribe Orders [facility] Specimen Processing 30 [place] [address] Rashmi Gordon PA-C [address], [address] [place] [address] [email or web address] Acute pancreatitis, unspecified complication status, unspecified pancreatitis [...] Pancreatic Elastase, Stool (09/24/2018 6:52 PM EDT) [facility] ST PANCREA ELASTASE 480 mcg/g [facility]O REFERRAL Comment: (NOTE) Adult and Pediatric Reference Ranges for Pancreatic Elastase-1: Normal: >200 mcg/g Moderate Pancreatic Insufficiency: 100-200 mcg/g Severe Pancreatic Insufficiency: <100 mcg/g Elastase-1 (E-1) assay results are expressed in mcg/g, which represent mcg E1/g feces. It is not necessary to interrupt enzyme substitution therapy. Test Performed by: [facility] [place] [address] [place] [address] Stool (Stool) 09/24/2018 6:5 2 PM EDT 09/24/2018 6:54 PM EDT Rashmi Gordon PA-C BODY FLUIDS AND STOOLS ORDERABL ES Final Result VERONA REFERRAL documented in this encounter Visit Diagnoses Diagnosis Acute pancreatitis, unspecified complication status, unspecified pancreatitis type- Primary documented in this encounter Additional Health Concerns Infection Onset Date Last Indicated Resolved Time CoV-Exposed Comment:Recent close contact 05/30/2020 05/30/2020 06/13/2020 1:24 AM EST CoV-Presumed 10/01/2021 10/01/2021 10/22/2021 1:21 AM EDT documented as of this encounter Care Teams Architect Marine Relationship Specialty Start Date End Date Erlin Pennington MD [address] [place] [address], [address] [place] [address] [email or web address] PCP - General 03/05/17 09/24/24 Marily Elkins NP 30 [place] [address] Historical LMR Provider 03/04/17 05/27/21 Iris Chamberlain MD 22 [facility], [address] [place] [address] Historical LMR Provider 03/04/17 05/27/21 Gilma Cornelius DO [address] [place] [address] Historical LMR Provider 03/04/17 2 Erlin Pennington MD [address] [place] [address], [address] [place] [address] [email or web address] Historical LMR Provider 03/04/17 5 Miriam Valladares MD [address] [place] [address] Historical LMR Provider 03/04/17 2 Artie Mayorga CNP [address] [place] [address], [address] [place] [address] [email or web address] Historical LMR Provider 03/04/17 documented as of this encounter Additional Source Comments The information contained in this document represents components of the legal health record. It is not the complete legal health record.[facility]
[2025-03-12 05:38] LABS: Lyme Abs Screen <0.90 index
== END 2025-03-11 13:58 | disposition home or self-care (01) ==
LOC: HO.LAB 13:57
PROVIDERS: PCP Nurse Practitioner Family; Visit Provider Nurse Practitioner Family
DX: Z01.84 Encounter for antibody response examination (principal); W57.XXXA Bitten or stung by nonvenomous insect and other nonvenomous arthropods, initial encounter
CPT/HCPCS: 36415; 86617; 86618

== ENCOUNTER 2025-03-15 11:00 | Outpatient (RCR) | payer OTHER, SELFPAY | END 2025-03-15 12:14 | disposition home or self-care (01) | LOC: HO.PT 11:00 | PROVIDERS: PCP Nurse Practitioner Family; Visit Provider Podiatrist Foot & Ankle Surgery | DX: M79.672 Pain in left foot (principal); M79.671 Pain in right foot; M25.675 Stiffness of left foot, not elsewhere classified; M25.674 Stiffness of right foot, not elsewhere classified | CPT/HCPCS: 97110; 97112; 97161 ==

== ENCOUNTER 2025-03-16 13:33 | Outpatient (REF) | payer OTHER, SELFPAY ==
--- OUTSIDE RECORDS SUMMARY | 2025-03-16 17:32 | XMS_ITS | Patient Health Record ---
Author Organization [facility] Address [address] [place] [address] [address] [place] [address] Care Team Providers Care Schedule Clerk Name Role Phone VALERY MOREAU CNP Primary Care Provider TALISHA Mckenzie Unavailable [phone] Allergies Allergen (clinical drug ingredient) Drug/Non Drug [...] Status W/U Status Risk Notes Problem COVID-19 ([id number]) COVID-19 (U07.1) Active confirmed Vital Signs Temperature 98.0 degrees Fahrenheit 10/09/2024 Blood pressure diastolic 74 mm Hg 10/09/2024 Height 64 in 10/09/2024 Blood pressure systolic 110 mm Hg 10/09/2024 Weight 169 lbs 10/09/2024 BMI 29.01 kg/m2 10/09/2024 Encounters Encounter Location Date Provider Diagnosis [facility] [email or web address] [place] [address] 06/12/2024 TALISHA SEGURAS Nonspecific low blood-pressure reading R03.1 Total [facility] [address] [facility] [address] [place] [address] 10/09/2024 TALISHA OKEEFE Encounter for gynecological examination (general) (routine) without abnormal findings Z01.419 ; Encounter for screening mammogram for malignant neoplasm of breast Z12.31 and Presence of (intrauterine) contraceptive device Z97.5 [facility] [email or web address] [place] [address] 06/11/2024 TALISHA OKEEFE Assessments Encounter Date Diagnosis [...] Provider Name:TALISHA Dodson, 10/15/2025 03:00:00 PM, [email or web address], [address], [place], [address], Insurance Providers Payer Name Payer Address Payer Phone Subscriber Number Group Number Insured Name Patient Relationship to Insured Coverage Start Date Coverage End Date [employer] [place] [address] [address] [place] [address] [id number] KUMAR GONSALVES Self - patient is the insured 3 Medical (General) History Medical History History ICD Code COVID-19 U07.1 Surgical History Surgery Date(Month/Year) [place] teeth extraction 2006 Hospitalization History Reason Date(Month/Year) Childbirth
--- OUTSIDE RECORDS SUMMARY | 2025-03-16 17:32 | XMS_ITS | Encounter Summary ---
Author Organization [facility] Address [facility]ly [facility] [employer] [address] [address] Phone Care Team Providers Care Olericulture Professor Name Role Phone Marily Elkins FREELANCE COURT REPORTER Unavailable [phone] Iris Chamberlain MD Unavailable Gilma Cornelius DO Unavailable [phone] Erlin Pennington MD Unavailable [phone] Miriam Valladares MD Unavailable [phone] Artie Mayorga CNP Unavailable [phone] Erlin Pennington MD Primary Care Provider Encounter Details Date Type Department Care Team (Latest Contact Info) Description 01/28/2020 Transcribe Orders [facility] Laboratory [address] [place], [place] [id number] Manjinder Staples MD 10 [facility] 2 [place] [address] [email or web address] Chronic pancreatitis, unspecified pancreatitis [...] REACTIVE PROTEIN <0.3 0.0 - 4.0 mg/L [facility] Blood 01/28/2020 2:03 PM EDT 01/28/2020 2:07 PM EDT us Manjinder Staples MD LAB BLOOD ORDERABLES Final R esult [facility] 30 [place] [address] * Comprehensive metabolic panel (01/28/2020 2:03 PM EDT) SODIUM 138 133 - 146 mmol/L [facility] POTASSIUM 4.3 3.3 - 5.1 mmol/L [facility] CHLORIDE 104 96 - 108 mmol/L [facility] CO2 24 21 - 35 mmol/L [facility] BUN 13 6 - 19 mg/dL [facility] CREATININE 0.70 0.5 - 1.5 mg/dL [facility] GLUCOSE 95 70 - 99 mg/dL [facility] ALBUMIN 4.3 3.9 - 4.8 g/dL [facility] TOTAL PROTEIN 7.1 6.5 - 8.0 g/dL [facility] CALCIUM 9.3 8.4 - 10.3 mg/dL [facility] ALKALINE PHOSPHATASE 50 39 - 117 U/L [facility] TOTAL BILIRUBIN 0.3 0.0 - 1.2 mg/dL [facility] AST 29 0 - 37 U/L [facility] ALT 13 0 - 40 U/L [facility] GLOBULIN 2.8 1 - 4.8 g/dL [facility] EGFR 111 >59 mL/min/1.7 3m2 [facility] Comment:Estimated glomerular filtration rate calculated using the CKD-EPI equation. ANION GAP 14 10 - 20 mmol/L [facility] Blood 01/28/2020 2:03 PM EDT 01/28/2020 2:07 PM EDT us Manjinder Staples MD LAB BLOOD ORDERABLES Final R esult [address] [address] * CBC (01/28/2020 2:03 PM EDT) WBC 5.52 4.00 - 11.00 K/uL [facility] Comment:Note Reference Range updates to all CBC and Differential results. RBC 4.67 3.72 - 5.30 M/uL [facility] HGB 14.9 10.6 - 15.5 g/dL [facility] Comment:Note updated Referen ce Ranges for all CBC and Differential results. HCT 44.2 32.0 - 45.0 % [facility] PLT 252 140 - 430 K/uL [facility] MCV 94.6 78.0 - 97.0 fL [facility] MCH 31.9 25.0 - 33.0 pg [facility] MCHC 33.7 32.0 - 36.0 g/dL [facility] RDW 12.3 11.0 - 16.0 % [facility] MPV 10.6 8.4 - 12.8 fl [facility] NRBC 0.00 0 /100 WBCs [facility] ABSOLUTE NRBC 0.00 0 K/uL [facility] Blood 01/28/2020 2:0 3 PM EDT 01/28/2020 2:07 PM EDT us Manjinder Staples MD LAB BLOOD ORDERABLES Final R esult [address] [address] * Lipase (01/28/2020 2:03 PM EDT) LIPASE 57 16 - 63 U/L [facility] Blood 01/28/2020 2:03 PM EDT 01/28/2020 2:07 PM EDT us Manjinder Staples MD LAB BLOOD ORDERABLES Final R esult [address] [address] * (ABNORMAL) Amylase (01/28/2020 2:03 PM EDT) AMYLASE 104(H) 28 - 100 U/L [facility] Blood 01/28/2020 2:03 PM EDT 01/28/2020 2:07 PM EDT us Manjinder Staples MD LAB BLOOD ORDERABLES Final R esult Performing Organization Address [facility]/[employer] Phone Number [address] [address] documented in this encounter Visit Diagnoses Diagnosis [...] documented as of this encounter Care Teams Olericulture Professor Relationship Specialty Start Date End Date Erlin Pennington MD [address] [place] [address], [address] [place] [address] PCP - General 03/05/17 09/24/24 Marily Elkins NP [address] [place] [address] [email or web address] Historical LMR Provider 03/04/17 05/27/21 Iris Chamberlain MD [address] [place] [address], [address] [place] [address] Historical LMR Provider 03/04/17 05/27/21 Gilma Cornelius DO [address] [place] [address] Historical LMR Provider 03/04/17 2 Erlin Pennington MD [address] [place] [address], [address] [place] [address] [email or web address] Historical LMR Provider 03/04/17 5 Miriam Valladares MD [address] [place] [address] Historical LMR Provider 03/04/17 2 Artie Mayorga CNP [address] [place] [address], [address] [place] [address] [email or web address] Historical LMR Provider 03/04/17 documented as of this encounter Additional Source Comments The information contained in this document represents components of the legal health record. It is not the complete legal health record.[facility]
--- OUTSIDE RECORDS SUMMARY | 2025-03-16 17:32 | XMS_ITS | Encounter Summary ---
Author Organization [facility] Address [address] [employer] [address] [address] Phone Care Team Providers Care Reconnaissance Man Name Role Phone Marily Elkins WATCH DIAL PRINTER Unavailable [phone] Iris Chamberlain MD Unavailable Gilma Cornelius DO Unavailable [phone] Erlin Pennington MD Unavailable [phone] Miriam Valladares MD Unavailable [phone] Artie Mayorga CNP Unavailable Erlin Pennington MD Primary Care Provider Encounter Details Date Type Department Care Team (Late st Contact Info) Description 04/21/2018 Ancillary Orders Virtual Department [address] [place] [address] Gokul Stevens MD [address] [place] [address] [email or web address] Social History Tobacco Use Types Packs/Day Years [...] documented as of this encounter Care Teams Reconnaissance Man Relationship Specialty Start Date End Date Erlin Pennington MD [address] [place] [address], [address] [place] [address] PCP - General 03/05/17 09/24/24 Marily Elkins NP [address] [place] [address] Historical LMR Provider 03/04/17 05/27/21 Iris Chamberlain MD [address] [place] [address], [address] [address] Historical LMR Provider 03/04/17 05/27/21 iGlma Cornelius DO [address] [place] [address] Historical LMR Provider 03/04/17 2 Erlin Pennington MD [address] [place] [address] Historical LMR Provider 03/04/17 5 Miriam Valladares MD [address] [place] [address] Historical LMR Provider 03/04/17 2 Artie Mayorga CNP [address] [place] [address], [address] [place] [address] [email or web address] Historical LMR Provider 03/04/17 documented as of this encounter Additional Source Comments The information contained in this document represents components of the legal health record. It is not the complete legal health record.[facility]
--- OUTSIDE RECORDS SUMMARY | 2025-03-16 17:32 | XMS_ITS | Encounter Summary ---
Author Organization [facility] Address [facility] [employer] [address] [address] Phone Care Team Providers Care Vacuum Cooker Operator Name Role Phone Marily Elkins TURN OUT Unavailable [phone] Iris Chamberlain MD Unavailable Gilma Cornelius DO Unavailable [phone] Erlin Pennington MD Unavailable [phone] Miriam Valladares MD Unavailable [phone] Artie Mayorga CNP Unavailable Erlin Pennington MD Primary Care Provider Encounter Details Date Type Department Care Team (Latest Contact Info) Description 12/20/2017 Transcribe Orders [facility] Laboratory [address] [place] [address] Leydi Durham PA 10 [place] [address] Diagnosis unknown (Primary Dx) Social History Tobacco [...] EDT) LIPASE 60 16 - 63 U/L Blood 12/20/2017 5:11 PM EDT 12/20/2017 5:14 PM EDT us Leydi TERRY LAB BLOOD ORDERABLES Final Result [address] [address] * Comprehensive metabolic panel (12/20/2017 5:11 PM EDT) SODIUM 139 133 - 146 mmol/L POTASSIUM 3.8 3.3 - 5.1 mmol/L CHLORIDE 102 96 - 108 mmol/L CO2 24 21 - 35 mmol/L BUN 16 6 - 19 mg/dL CREATININE 0.90 0.5 - 1.5 mg/dL GLUCOSE 87 70 - 99 mg/dL ALBUMIN 4.2 3.9 - 4.8 g/dL TOTAL PROTEIN 7.1 6.5 - 8.0 g/dL CALCIUM 8.5 8.4 - 10.3 mg/dL ALKALINE PHOSPHATASE 51 39 - 117 U/L TOTAL BILIRUBIN 0.3 0.0 - 1.2 mg/dL AST 17 0 - 37 U/L ALT 12 0 - 40 U/L GLOBULIN 2.9 1 - 4.8 g/dL EGFR 83 >59 mL/min/1.7 3m2 Comment:If patient is black, multiply result by 1.159. Estimated glomerular filtration rate calculated using the CKD-EPI equation. ANION GAP 17 10 - 20 mmol/L Blood 12/20/2017 5:11 PM EDT 12/20/2017 5:14 PM EDT us Leydi TERRY LAB BLOOD ORDERABLES Final Result [address] [place] [address] * (ABNORMAL) CBC and differential (12/20/2017 5:11 PM EDT) WBC 6.62 3.40 - 11.20 K/uL RBC 4.36 3.80 - 4.80 M/uL HGB 14.3 12.0 - 15.0 g/dL HCT 40.6 36.0 - 46.0 % PLT 252 130 - 400 K/uL MCV 93.1 79.0 - 98.0 fL MCH 32.8 27.0 - 34.8 pg MCHC 35.2 31.5 - 36.0 g/dL RDW 12.2 10.8 - 14.6 % MPV 10.5 9.4 - 12.4 fl NRBC 0.00 /100 WBCs ABSOLUTE NRBC 0.00 K/uL DIFF METHOD Auto NEUTS 47.5 45.30 - 77.70 % LYMPHS 42.7(H) 12.30 - 39.70 % MONOS 5.3 4.10 - 12.80 % EOS 3.2 0 - 7.2 % BASOS 1.1 0 - 2.80 % Granulocytes, immature (%) 0.2 0.0 - 0.9 % ABSOLUTE NEUTS 3.15 1.40 - 7.70 K/uL ABSOLUTE LYMPHS 2.83 0.60 - 3.20 K/uL ABSOLUTE MONOS 0.35 0.11 - 0.59 K/uL ABSOLUTE EOS 0.21 0.01 - 0.50 K/uL ABSOLUTE BASOS 0.07 0.00 - 0.08 K/uL Granulocytes, immature 0.01 0.00 - 0.05 K/uL Blood 12/20/2017 5:11 PM EDT 12/20/2017 5:14 PM EDT us Leydi TERRY LAB BLOOD ORDERABLES Final Result [address] [address] documented in this encounter Visit Diagnoses Diagnosis Diagnosis unknown- Primary documented in this encounter Additional Health Concerns Infection Onset Date Last Indicated Resolved Time CoV-Exposed Comment:Recent close contact 05/30/2020 05/30/2020 06/13/2020 1:24 AM EST CoV-Presumed 10/01/2021 10/01/2021 10/22/2021 1:21 AM EDT documented as of this encounter Care Teams Vacuum Cooker Operator Relationship Specialty Start Date End Date Erlin Pennington MD [address] [place] [address], [address] [address] PCP - General 03/05/17 09/24/24 Marily Elkins NP [address] [place] [address] Historical LMR Provider 03/04/17 05/27/21 Iris Chamberlain MD [address] [place] [address], [address] [address] Historical LMR Provider 03/04/17 05/27/21 Gilma Cornelius DO [address] [place] [address] Historical LMR Provider 03/04/17 2 Erlin Pennington MD [address] [place] [address] Historical LMR Provider 03/04/17 5 Miriam Valladares MD [address] [place] [address] Historical LMR Provider 03/04/17 2 Artie Mayorga CNP 22 [facility], [address] [place] [address] [email or web address] Historical LMR Provider 03/04/17 documented as of this encounter Additional Source Comments The information contained in this document represents components of the legal health record. It is not the complete legal health record.[facility]
--- OUTSIDE RECORDS SUMMARY | 2025-03-16 17:32 | XMS_ITS | Encounter Summary ---
Author Organization [facility] Address [address] [employer] [address] [address] Phone Care Team Providers Care Digital Imager Name Role Phone Marily Elkins ANNUAL GIVING MANAGER Unavailable [phone] Iris Chamberlain MD Unavailable Gilma Cornelius DO Unavailable Erlin Pennington MD Unavailable [phone] Miriam Valladares MD Unavailable [phone] Artie Mayorga CNP Unavailable Erlin Pennington MD Primary Care Provider Encounter Details Date Type Department Care Team (Latest Contact Info) Description 04/21/2018 Ancillary Orders Virtual Department 30 [place] [address] Gokul Stevens MD [address] [place] [address] [email or web address] Chronic pancreatitis, unspecified pancreatitis type Social History [...] right lobe of the liver. POS - [id number] Narrative 05/14/2018 12:10 PM EST US ABDOMEN [...] right lobe of the liver. POS - [id number] us Gokul Stevens MD IMG US ABDOMEN [...] documented as of this encounter Care Teams Digital Imager Relationship Specialty Start Date End Date Erlin Pennington MD [address] [place] [address], [address] [place] [address] PCP - General 03/05/17 09/24/24 Marily Elkins NP [address] [place] [address] Historical LMR Provider 03/04/17 05/27/21 Iris Chamberlain MD [address] [place] [address], [address] [place] [address] Historical LMR Provider 03/04/17 05/27/21 Gilma Cornelius DO 30 [place] [address] Historical LMR Provider 03/04/17 2 Erlin Pennington MD 22 [facility], [address] [place] [address] Historical LMR Provider 03/04/17 5 Miriam Valladares MD [address] [place] [address] Historical LMR Provider 03/04/17 2 Artie Mayorga CNP 22 [facility], [address] [place] [address] [email or web address] Historical LMR Provider 03/04/17 documented as of this encounter Additional Source Comments The information contained in this document represents components of the legal health record. It is not the complete legal health record.[facility]
--- OUTSIDE RECORDS SUMMARY | 2025-03-16 17:33 | XMS_ITS | Encounter Summary ---
Author Organization [facility] Address [facility] [employer] [address] [address] Phone Care Team Providers Care Education Research Analyst Name Role Phone Marily Elkins SUPERVISOR ELECTRIC Unavailable [phone] Iris Chamberlain MD Unavailable Gilma Cornelius DO Unavailable [phone] Erlin Pennington MD Unavailable Miriam Valladares MD Unavailable [phone] Artie Mayorga CNP Unavailable Erlin Pennington MD Primary Care Provider [phone] Encounter Details Date Type Department Care Team (Latest Contact Info) Description 09/24/2018 Transcribe Orders [facility] Specimen Processing 30 [place] [address] Rashmi Gordon PA-C [address] [place] [address] [email or web address] Acute [...] Pancreatic Elastase, Stool (09/24/2018 6:52 PM EDT) [facility] ST PANCREA ELASTASE 480 mcg/g [facility] REFERRAL Comment: (NOTE) Adult and Pediatric Reference Ranges for Pancreatic Elastase-1: Normal: >200 mcg/g Moderate Pancreatic Insufficiency: 100-200 mcg/g Severe Pancreatic Insufficiency: <100 mcg/g Elastase-1 (E-1) assay results are expressed in mcg/g, which represent mcg E1/g feces. It is not necessary to interrupt enzyme substitution therapy. Test Performed by: [facility] [place] [address] [place] [address] Stool (Stool) 09/24/2018 6:5 2 PM EDT 09/24/2018 6:54 PM EDT Rashmi Gordon PA-C BODY FLUIDS AND STOOLS ORDERABL ES Final Result NISULA REFERRAL documented in this encounter Visit Diagnoses Diagnosis Acute pancreatitis, unspecified complication status, unspecified pancreatitis type- Primary documented in this encounter Additional Health Concerns Infection Onset Date Last Indicated Resolved Time CoV-Exposed Comment:Recent close contact 05/30/2020 05/30/2020 06/13/2020 1:24 AM EST CoV-Presumed 10/01/2021 10/01/2021 10/22/2021 1:21 AM EDT documented as of this encounter Care Teams Education Research Analyst Relationship Specialty Start Date End Date Erlin Pennington MD [address] [place] [address], [address] [place] [address] PCP - General 03/05/17 09/24/24 Marily Elkins NP 30 [place] [address] Historical LMR Provider 03/04/17 05/27/21 Iris Chamberlain MD 22 [facility], [address] [place] [address] Historical LMR Provider 03/04/17 05/27/21 Gilma Cornelius DO [address] [place] [address] Historical LMR Provider 03/04/17 2 Erlin Pennington MD [address] [place] [address], [address] [place] [address] [email or web address] Historical LMR Provider 03/04/17 5 Miriam Valladares MD [address] [place] [address] Historical LMR Provider 03/04/17 2 Artie Mayorga CNP [address] [place] [address], [address] [place] [address] [email or web address] Historical LMR Provider 03/04/17 documented as of this encounter Additional Source Comments The information contained in this document represents components of the legal health record. It is not the complete legal health record.[facility]
--- OUTSIDE RECORDS SUMMARY | 2025-03-16 17:33 | XMS_ITS | Encounter Summary ---
Author Organization [facility] Address [facility] Graph Alchemist [address] [address] Phone Care Team Providers Care Automatic Wheel Line Operator Name Role Phone Marily Elkins LIFT DRIVER Unavailable [phone] Iris Chamberlain MD Unavailable Gilma Cornelius DO Unavailable [phone] Erlin Pennington MD Unavailable [phone] Miriam Valladares MD Unavailable [phone] Artie Mayorga CNP Unavailable [phone] Erlin Pennington MD Primary Care Provider [phone] Encounter Details Date Type Department Care Team (Latest Contact Info) Description 07/23/2019 Transcribe Orders [facility] Laboratory [address] [id number] Leydi Durham PA [address] [place] [address] Acute pancreatitis, unspecified complication status, unspecified pancreatitis [...] EST) WBC 8.02 4.00 - 11.00 K/uL [facility] Comment:Note Reference Range updates to all CBC and Differential results. RBC 4.64 3.72 - 5.30 M/uL [facility] HGB 14.8 10.6 - 15.5 g/dL [facility] Comment:Note updated Referen ce Ranges for all CBC and Differential results. HCT 43.3 32.0 - 45.0 % [facility] PLT 248 140 - 430 K/uL [facility] MCV 93.3 78.0 - 97.0 fL [facility] MCH 31.9 25.0 - 33.0 pg [facility] MCHC 34.2 32.0 - 36.0 g/dL [facility] RDW 12.6 11.0 - 16.0 % [facility] MPV 10.5 8.4 - 12.8 fl [facility] NRBC 0.00 0 /100 WBCs [facility] ABSOLUTE NRBC 0.00 0 K/uL [facility] Blood 07/23/2019 11:5 6 AM EST 07/23/2019 12:01 PM EST us Leydi [facility] BLOOD ORDERABLES Final Result Performing Organization Address City/State/[facility] Co de Phone Number [address] [address] * (ABNORMAL) IgG subclasses (07/23/2019 11:56 AM EST) IGG 1 509 341 - 894 mg/dL [facility] [address] IGG 2 598 171 - 632 mg/dl [facility] [address] IGG 3 88.3 18.4 - 106.0 mg/dl [facility] [address] IGG 4 212.0(H) 2.4 - 121.0 mg/dl [facility] [address] TOTAL IGG 1,360 767 - 1,590 mg/dl [facility] [address] Blood 07/23/2019 11:5 6 AM EST 07/23/2019 12:01 PM EST Leydi [facility] BLOOD ORDERABLES Final Result Performing Organization Address City/[facility] Co de Phone Number [facility] MED/[address] [place] [address] * Lipase (07/23/2019 11:56 AM EST) LIPASE 47 16 - 63 U/L [facility] Blood 07/23/2019 11:5 6 AM EST 07/23/2019 12:01 PM EST Leydi [facility] BLOOD ORDERABLES Final Result Performing Organization Address [facility] de Phone Number [address] [address] documented in this encounter Visit Diagnoses Diagnosis [...] documented as of this encounter Care Teams Automatic Wheel Line Operator Relationship Specialty Start Date End Date Erlin Pennington MD [address] [place] [address], [address] [place] [address] [email or web address] PCP - General 03/05/17 09/24/24 Marily Elkins NP [address] [place] [address] [email or web address] Historical LMR Provider 03/04/17 05/27/21 Iris Chamberlain MD [address] [facility] [facility], [address] [place] [address] Historical LMR Provider 03/04/17 05/27/21 Gilma Cornelius DO [address] [place] [address] Historical LMR Provider 03/04/17 2 Erlin Pennington MD [address] [place] [address], [address] [place] [address] [email or web address] Historical LMR Provider 03/04/17 5 Miriam Valladares MD [address] [place] [address] Historical LMR Provider 03/04/17 2 Artie Mayorga CNP [address] [place] [address], [address] [place] [address] [email or web address] Historical LMR Provider 03/04/17 documented as of this encounter Additional Source Comments The information contained in this document represents components of the legal health record. It is not the complete legal health record.[facility]
--- OUTSIDE RECORDS SUMMARY | 2025-03-16 17:33 | XMS_ITS | Encounter Summary ---
Author Organization [facility] Address [facility] [address] [address] Phone Care Team Providers Care Cigarette Vendor Name Role Phone Marily Elkins BENEFITS REPRESENTATIVE Unavailable [phone] Iris Chamberlain MD Unavailable Gilma Cornelius DO Unavailable [phone] Erlin Pennington MD Unavailable [phone] Miriam Valladares MD Unavailable [phone] Artie Mayorga CNP Unavailable Erlin Pennington MD Primary Care Provider [phone] Encounter Details Date Type Department Care Team (Late st Contact Info) Description 02/05/2020 Procedure Pass [facility], [address] [address] Social History Tobacco Use Types Packs/Day Years [...] documented as of this encounter Care Teams Cigarette Vendor Relationship Specialty Start Date End Date Erlin Pennington MD [address] [place] [address] PCP - General 03/05/17 09/24/24 Marily Elkins, RONI [address] [place] [address] Historical LMR Provider 03/04/17 05/27/21 Iris Chamberlain MD [address] [place] [address], [facility] [address] [place] [address] Historical LMR Provider 03/04/17 05/27/21 Gilma Cornelius DO [address] [place] [address] Historical LMR Provider 03/04/17 2 Erlin Pennington MD [address] [place] [address] Historical LMR Provider 03/04/17 5 Miriam Valladares MD [address] [place] [address] Historical LMR Provider 03/04/17 2 Artie Mayorga CNP [address] [facility], [address] [place] [address] [email or web address] Historical LMR Provider 03/04/17 documented as of this encounter Additional Source Comments The information contained in this document represents components of the legal health record. It is not the complete legal health record.[facility]
--- OUTSIDE RECORDS SUMMARY | 2025-03-16 17:33 | XMS_ITS | Clinical Summary ---
Author Organization [facility] Address [address] [employer] [address] [address] Phone Care Team Providers Care Account Resolution Analyst Name Role Phone Unavailable Primary Care Provider Unavailabl e Allergies Active Allergy Reactions Criticality Noted Date Comments Bupropion Hcl Other (See Comments) Low 10/02/2016 Per pt report: [place] out of it Cat's Claw (Uncaria Tomentosa) Hives 10/02/2016 Codeine Phosphate GI Upset Low 10/02/2016 Erythromycin Hives 10/02/2016 Fluoxetine Other (See Comments) Low 10/02/2016 Per pt report: [place] out of it Sertraline Hcl Other (See Comments) Low 10/02/2016 Per pt report: [place] out of it Sulfamethoxazole-Trime thoprim Nausea and/or [...] (06/26/2019 10:04 AM EST): Previously evaluated at [facility] with EUS, reportedly normal. Recommend follow up [...] this topic Medical Devices Implanted Type Area Idea Man Device Identifier Shelf Expiration Date Model / [...] SEE NARRATIVE - 05/31/2020 9:47 [place] [address] Associate Field Service Engineer: Ely Carver MD HOUSE SUPERINTENDENT Cytology Report FINAL DIAGNOSIS A. PAP SMEAR [...] 52, 56, 58, 59, 66, 68) by [employer] Onclarity HR-HPV analysis. Clinical correlation is advised. This HPV test was performed at [facility], [address] [place] [address]. This test has been FDA approved for SurePath cervical cytology specimens. The accuracy and precision of this test for all other specimen sources has been verified in the Cytopathology Laboratory of the [facility] and has not been cleared or approved by the U.S. Food and Drug Administration. Clinical correlation is advised. CLINICAL HISTORY Date of Last Menstrual Period: 05-22-2020 Contraceptive History: IUD Other Clinical Conditions: Screening Pap SPECIMEN SOURCE A: PAP SMEAR (SUREPATH) CE Patient Name: KUMAR MADSEN : 1985 (Age: 34) Sex: F Institution: [facility] Location: [facility] Date of Collection: 05/26/2020 Date of Reported: 05/30/2020 15:22 Results to: Anita Hope MD Anita Hope MD CYTOLOGY ORDERABLES Edited Re sult - Final SEE NARRATIVE from Last 3 Months or Most Recently Relevant to Health Maintenance [place] [address] [address] OUT [facility] PPO [facility] PPO [facility] OUT OF [facility]PO [facility] PPO [facility] PPO [facility] OUT OF [facility] Advance Directives For more information, please contact: [phone] (9AM - 5PM [place], Saturday-Saturday) Documents on File Type Date Recorded Patient Ethylene Oxide Panelboard Operator [facility] 10/21/2018 [facility] Care Proxy (10/15/18) Additional Source Comments The information contained in this document represents components of the legal health record. It is not the complete legal health record.[facility]
--- OUTSIDE RECORDS SUMMARY | 2025-03-16 17:33 | XMS_ITS | Clinical Summary ---
Author Organization [facility] Address [address] [place] [address] Phone Care Team Providers Care Operator Engineer Name Role Phone TiffanyManuelajim Brown WORKERS COMPENSATION CLAIMS ADJUSTER Primary Care Provider Social History Tobacco Use [...] patient's age to complete this topic Insurance [place] [employer] [facility] Care Teams Operator Engineer Relationship Specialty Start Date End Date Daria Allen FNP [address] [place] [phone] PCP - General Internal Medicine 11/24/24
[2025-03-18 06:52] LABS: A. Phagocytphilium DNA,RT-PCR NOT DETECTED (NOT DETECTED); Babesia Microti DNA, RT-PCR NOT DETECTED (NOT DETECTED); Borrelia Miyamotoi,DNA RT-PCR NOT DETECTED (NOT DETECTED); E.Chaffeensis DNA RT-PCR NOT DETECTED (NOT DETECTED); Lyme(Borrelia ssp)DNA RT-PCR NOT DETECTED (NOT DETECTED)
== END 2025-03-16 13:34 | disposition home or self-care (01) ==
LOC: HO.LAB 13:33
PROVIDERS: PCP Nurse Practitioner Family; Visit Provider Nurse Practitioner Family
DX: M25.571 Pain in right ankle and joints of right foot (principal); M25.572 Pain in left ankle and joints of left foot
CPT/HCPCS: 36415; 87468; 87469; 87478; 87484; 87798

== ENCOUNTER 2025-04-20 08:13 | Outpatient (AMB) | payer OTHER, SELFPAY ==
--- NOTE | 2025-04-20 08:14 | A.OFFPC_ITS ---
Vital Signs 04/20/25 08:20 Height 5 ft 4.5 in Weight 173 lb 4 oz BMI 29.3 BP 110/56 L Blood Pressure Location Rt brachial Position Sitting Respiration 16 Pulse 86 Pulse Source Pulse Oximeter Temp 98.0 F Temp Source Oral Pulse Oximetry (%) 98 Oxygen Delivery Method Room Air Intake Visit Reasons: end Mar/APR FU foot pain/records review 30 min Intake Note: patient here for follow up on foot pain/ records review Steerer Required: No Is last menstrual period known: Yes Last menstrual period: 04/06/25 Post menopausal: No Patient : No Allergies erythromycin base (ERYTHROMYCIN BASE) Allergy (Unknown, Verified 04/20/25 08:45) HIVES sulfamethoxazole (From BACTRIM) Adverse Reaction (Intermediate, Verified 04/20/25 08:45) STOMACH UPSET trimethoprim (From BACTRIM) Adverse Reaction (Intermediate, Verified 04/20/25 08:45) STOMACH UPSET Medication List - Last Reconciled 04/20/25 by WILLIAM GusmanP- cholecalciferol (vitamin D3) 125 mcg PO DAILY Tobacco use date assessed: 04/20/25 Dental Screening Dental Screen Date: 04/20/25 Did you have a dental visit in the last 12 months?: Yes Did you have a dental problem in the last 6 months where you did not have access to dental care?: No Was dental information given to patient?: Patient has dentist HPI HPI Comments History of Present Illness Details 39 y/o F with POTs, seasonal allergies, asthma, chiari 1 malformation, eczema, dyslexia, adhd, HLD nontolerant to statins, 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 . 1 step dtr 12, step son 15. Surgery: None Familyhx: MGP esoph ca; PGF bladder ca. Both w/ etoh. Health Maintenance tdap 2019 Flu declined Pap 2020, 2023; the [facility] Mammo 10/2024 stress test 2022 Specialist Cards in the past Podiatry in [place] [employer] History of Present Illness The patient is a 39-year-old individual presenting for a follow-up visit for chronic conditions, including idiopathic bilateral foot pain and chronic aches and pains. Bilateral Foot Pain: - The patient has long-standing idiopath ic bilateral foot pain which has worsened despite physical therapy. - Physical therapy exacerbated the sympt oms, causing severe calf pain and increasing foot stiffness and pain with activity. - The patient's farm adviser is unsure of the etiology. - The pain is characterized by stiffness after periods of rest, particularly at night, leading to a shuffling gait upon resuming activity. - Past trials of gabapentin were not eff ective, and the patient has never had EMG or nerve conduction studies. Polyarthralgia: - The patient reports new-onset joint pa in affecting the knees, elbows, and hip, which is unusual for a typically active individual. - The joint pain has led to decreased ac tivity levels. Hyperlipidemia: - Labs from February 15 revealed a to clary cholesterol of 256 mg/dL and an LDL of 162 mg/dL. - The patient has a history of statin in tolerance, reporting that they made the patient feel lousy. Vitamin D Deficiency: - Lab work from January showed a low v itamin D level of 27.4 ng/mL. - The finding is surprising to the patie tia, who reports frequent sun exposure and supplements with Vitamin D 5000 IU and Vitamin K. - The patient denies gastrointestinal sy mptoms, making a malabsorptive syndrome such as celiac disease less likely. Intraosseous Hemangioma of Left Sacrum: - An ultrasound in 2022 identified a 0.7 cm intraosseous hemangioma in the left sacrum. - The patient was advised at the time to follow up on it in a couple of years. - The patient reports having back pain. History of Elevated IgG4 and Pancreatitis: - The patient has a history of elevated IgG4 levels. - The patient was evaluated at [facility] for suspected acute pancreatitis, which was thought to be possibly related to small gallstones. - The pancreatic symptoms resolved and h ave not recurred in approximately two years. Chiari I Malformation: - The patient has a known diagnosis of a Chiari I malformation but has not had recent follow-up. - The patient currently denies any assoc iated symptoms such as headaches or visual problems. Unintentional Weight Gain: - The patient reports recent weight gain which is bothersome. - This is attributed to a reduction in g ym frequency from 2-3 times per week due to soreness. Past Medical History - Intraosseous hemangioma of the left sa rell diagnosed in 2022 - History of elevated IgG4 levels - History of acute pancreatitis, possibl y secondary to gallstones - Chiari I malformation - Statin intolerance - Positive IRIS (1:40 nuclear speckled pa ttern), considered non-specific Review of Systems - Constitutional: Reports feeling unwell , sore, and experiencing weight gain. - Musculoskeletal: Reports bilateral george t pain and stiffness, which is worse after rest. - Musculoskeletal: Reports joint pain in the knees, elbows, and hip. - Musculoskeletal: Reports back pain. - Neurological: Denies headaches and vis ual problems. - Gastrointestinal: Denies abdominal melany n, nausea, vomiting, and diarrhea. - Dermatological: Reports a recent tick bite. Physical Exam General: Well developed, well nourished, in no acute distress. Appears stated age. Head: Normocephalic, atraumatic. Eyes: Pupils are equal, round and reactive to light and accommodation. Conjunctivae are clear. Vision grossly normal. Lungs: Clear to auscultation bilaterally. No rales, rhonchi or wheeze noted. Good air flow in all echols. Heart: Regular rate and rhythm. No murmurs, click, rubs or gallops are noted. Musculoskeletal: Joints are tender with reported pain in knees, elbows, and hips. No swelling, redness, or effusions noted. FROM. normal strength. Palpable firm mobile mass L sacrum Pulses: Peripheral pulses are equal and palpable bilaterally. Extremities: No clubbing, cyanosis nor edema is noted. Patient reports idiopathic foot pain and stiffness, particularly after periods of rest. Psych: Mood and affect appropriate. Patient reports feeling frustrated due to joint pain and weight gain. Results - Results from February 15 2025 - Labs: CBC, inflammatory markers, elect rolytes, and kidney function were all normal. - Labs: Glucose normal, no evidence of d iabetes. - Labs: Mildly elevated AST, considered clinically insignificant. - Labs: Total cholesterol 256 mg/dL, LDL 162 mg/dL. - Labs: Vitamin D 27.4 ng/mL (low). - Labs: IRIS positive at 1:40 with a nucl ear speckled pattern. - Labs: Smooth muscle antibody, IgG anti body, double-stranded DNA, complements C3 and C4 were all normal. - Labs: Immediate and extended Lyme pane ls were negative. - Imaging (from 2022): Ultrasound showed a 0.7 cm intraosseous hemangioma in the left sacrum. Medical Decision Making The patient is a a 39-year-old individual presenting with a multifactorial a clinical picture dominated by idiopathic a bilateral a foot pain and polyarthralgia, which has been unresponsive to physical therapy and prior medication trials. The initial autoimmune workup was largely negative, despite a low-titer positive a IRIS, which is considered non-specific in this context. Given the worsening a foot pain, stiffness following rest, and lack of response to conservative measures, further investigation is warranted. EMG and nerve conduction studies are indicated to evaluate for an underlying neuropathy or myopathy. The patient's symptom of pain worsening at rest raises suspicion for an inflammatory process such as a seronegative spondyloarthropathy; therefore, an HLA-B27 test will be obtained. The patient's history of an intraosseous hemangioma of the sacrum, along with current back pain, necessitates re-evaluation with an MRI of the lumbar spine to assess for changes and rule out its contribution to symptoms. This imaging will also allow for evaluation of the sacroiliac joints for signs of ankylosing spondylitis. We will also repeat the vitamin D level to monitor the deficiency, the lipid panel to guide management of hyperlipidemia, and IgG levels given the past elevation and systemic symptoms. A nutrition referral will be placed to assist with dietary management of hyperlipidemia and weight gain. Plan 1. Idiopathic Bilateral Foot Pain And Po lyarthralgia - To further evaluate the etiology of th e patient's lower extremity symptoms, which have not responded to physical therapy or gabapentin, an EMG and nerve conduction study of the bilateral lower extremities will be ordered. - Due to the nature of the pain being wo rse with rest, an HLA-B27 lab test will be ordered to investigate for ankylosing spondylitis. - An MRI of the lumbar spine will be ord ered to assess the sacrum and sacroiliac joints, which can also provide information regarding potential ankylosing spondylitis. 2. Hyperlipidemia - A lipid panel will be repeated to asse ss current cholesterol levels. - Given the history of statin intoleranc e, Zetia (ezetimibe) was discussed as a non-statin alternative for lowering LDL cholesterol. - A referral will be placed for the jin ent to meet with a agricultural equipment operator for dietary counseling to help manage cholesterol and weight. 3. Vitamin D Deficiency - The patient will have vitamin D levels rechecked via lab work today. - The patient will continue supplementin g with 5000 IU of vitamin D with vitamin K2. 4. Intraosseous Hemangioma Of Left Sacru m - An MRI of the lumbar spine with and wi thout contrast will be ordered to re- evaluate the size and characteristics of the hemangioma first identified in 2022. 5. History Of Elevated Igg4 - Given the patient's systemic symptoms and history of elevated IgG4, IgG levels will be rechecked with today's lab draw. 6. Follow-Up - A follow-up video visit will be schedu led after all lab and imaging results have been received to discuss the findings. - The patient will be contacted immediat arpan if any critical results are found before all tests are complete. Patient Instructions - Please get your blood drawn today for the lab tests we discussed. - You will be contacted to schedule an M RI of your lower back and nerve/muscle tests (EMG) for your legs. - Feel free to call the [facility]'s sched uling department if you do not hear from them about your MRI. - You will also receive a call to set up an appointment with the agricultural equipment operator. - Continue taking your vitamin D supplem ent as you have been. - We will set up a video visit to go ove r all your test results once they are back. - We will call you immediately if any of your test results are concerning. Consent Informed consent was obtained for an EMG and nerve conduction study of the bilateral lower extremities. The patient was informed that it is not a pleasant test and that the patient will likely never going to want one again. The rationale was explained: the test is worthwhile for patients with unresolved symptoms, as it can provide valuable diagnostic information. The patient understood the information and verbalized agreement to proceed, stating, I'm up for anything. Patient was informed and verbally consented to the use of an ambient scribe for clinic note documentation during this visit. Total time spent caring for the patient today was 40 minutes. This includes time spent before the visit reviewing the chart, time spent during the visit, and time spent after the visit on documentation, reviewing laboratory results, d iagnostic imaging, medications, performing a medically necessary evaluation, counseling on diagnoses, care coordination, ordering appropriate tests, ordering appropriate medications, review of tests performed by other providers, reporting test results with the patient, communication with other healthcare providers. [facility] Medical History Syncope Palpitations Allergic Sinusitis Low BP Surgical History No pertinent past surgical history Family History Maternal Grandmother HTN (hypertension) Maternal Grandfather Esophageal cancer Paternal Grandfather Bladder cancer Social History Household Members: Spouse and Children Both parents involved: No Caregiver staying overnight: No Housing: House Are you a primary direct care staffer to a significant other at home: Yes Do you presently have visiting nurse or other home services: No 75 years or older and lives alone: No Alcohol intake: current Alcohol intake frequency: a few times a month Patient Tobacco Use Status: Never used Tobacco e-Cigarette/Vaping Use: Never Used Second Hand Smoke Exposure: No Patient : No Current occupational status: employed 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[employer] [place] Cognitive needs: No Hearing needs: No Vision needs: No Female Reproductive History Menstrual Date of last menstrual period: 04/06/25 Questionnaire Thrive Questionnaire Date Thrive assessed: 02/12/25 I am a: Patient What is your living situation today?: I have a steady place to live Within the past 12 months, did the food you bought not last and you didn't have the money to get more?: Never true Within the past 12 months, did you worry whether your food would run out before you got money to buy more?: Never true Do you have trouble paying for medicines?: No Do you have trouble getting transportation to medical appointments?: No Do you have trouble paying your heating and electricity bill?: No Do you have trouble taking care of your child, family member or friend?: No Do you have trouble with day-to-day activities such as bathing, preparing meals, shopping, managing finances, etc.?: No Are you currently unemployed and looking for a job?: No Are you interested in more education?: No Please select the resources that you would like help with: None Currently or been in a relationship where the following occur: No concerns reported THRIVE Score: 0 YENI-7 AMB Questionnaire YENI-7 Date YENI - 7 assessed: 02/15/25 Source: Developed by Drs. Elie Minaya, Sherri Durant, Adam Alba and colleagues, with an educational mara from [employer]. Physical exam (Primary Care) Vital Signs: Last Vital Signs Temp 98.0 F 04/20/25 08:20 Pulse 86 04/20/25 08:20 Resp 16 04/20/25 08:20 BP 110/56 L 04/20/25 08:20 Pulse Ox 98 04/20/25 08:20 Oxygen Delivery Method Room Air 04/20/25 08:20 BMI result Body Mass Index 29.3 Tobacco/Smoking Status: Tobacco use Status Tobacco use date assessed 04/20/25 04/20/25 08:19 Patient Tobacco Use Status Never used Tobacco 04/20/25 08:19 e-Cigarette/Vaping Use Never Used 04/20/25 08:19 Thrive Assessment: Date of Thrive Assessment Date Thrive assessed 02/12/25 04/20/25 08:19 Currently or been in a relationship where the following occur: No concerns reported Results Reviewed Results Reviewed: Laboratory 02/15/25 Result Units Range Interpretation Provider Comments White Blood Count 5.8 X10*3/uL (4.8-10.8) Red Blood Count 4.56 X10*6/uL (4.20-5.50) Hemoglobin 14.6 g/dl (12.0-16.0) Hematocrit 42.9 % (37.0-47.0) Mean Corpuscular Volume 94.1 fL (80.0-98.0) Mean Corpuscular Hemoglobin 32.0 pg (27.0-33.0) Mean Corpuscular Hemoglobin Concent 34.0 g/dl (31.0-35.0) Red Cell Distribution Width 12.4 % (11.0-16.0) Platelet Count 265 X10*3/uL (160-400) Mean Platelet Volume 10.1 fL (9.4-12.3) Nucleated RBC Absolute Count (auto) 0.000 X10*3/uL (0.0-0.012) Nucleated Red Blood Cells % (auto) 0.0 /100WBC (0.0-0.2) Erythrocyte Sedimentation Rate 7 MM/HR (0-20) Sodium Level 139 mmol/L (135-145) Potassium Level 4.2 mmol/L (3.3-5.1) Chloride Level 107 mmol/L (96-108) Carbon Dioxide Level 26 mmol/L (22-29) Anion Gap 10 (12-20) Low Blood Urea Nitrogen 17 mg/dL (9-16) High Creatinine 0.77 mg/dL (0.5-1.4) Estimated Creatinine Clearance Calc Not Reportable Estimat Glomerular Filtration Rate > 60 Random Glucose 105 mg/dL (60-115) Estimated Average Glucose 103 mg/dL Hemoglobin A1c Percent 5.2 % (<6.0) Calcium Level 9.0 mg/dL (8.4-10.2) Total Bilirubin 0.5 mg/dL (0.0-1.0) Aspartate Amino Transf (AST/SGOT) 33 U/L (5-31) High Alanine Aminotransferase (ALT/SGPT) 24 U/L (0-31) Alkaline Phosphatase 48 U/L (39-117) C-Reactive Protein < 0.10 mg/dL (< or = 0.50) Total Protein 7.0 g/dL (6.5-8.0) Albumin 4.2 g/dL (3.5-5.0) Triglycerides Level 100 mg/dL (<150) Cholesterol Level 256 mg/dL (<200) High LDL Cholesterol, Calculated 162 mg/dL (<100) High HDL Cholesterol 74 mg/dL (>40) Vitamin B12 Level 505 pg/mL (200-900) 25-Hydroxy Vitamin D Total 27.4 ng/mL (>30) Low Folate 12.8 ng/mL (> or = 4.0) Thyroid Stimulating Hormone (TSH) 0.66 uIU/mL (0.32-4.0) Urine Creatinine 85.44 mg/dL Urine Microalbumin < 5.0 mg/L Urine Microalbumin/Creatinine Ratio TNP Rheumatoid Factor < 13.0 IU/mL (<15.0) Complement C3 122 mg/dL (83-193) Complement C4 22 mg/dL (15-57) Laboratory Result Units Range Interpretation Provider Comments Anti-Nuclear Antibody Screen POSITIVE (NEGATIVE) Abnormal Anti-Nuclear Antibody Titer 1:40 titer High Anti-Nuclear Antibody Titer 2 1:40 titer High Anti-Nuclear Antibody Titer 3 Pending Anti-Nuclear Antibody Pattern Abnormal Anti-Nuclear Antibody Pattern 2 Nuclear, Speckled Abnormal Anti-Nuclear Antibody Pattern 3 Pending Laboratory Result Units Range Interpretation Provider Comments Sm (Barlow) Antibody <1.0 NEG AI (<1.0 NEG) SM/BUTTONHOLE MARKER Antibody <1.0 NEG AI (<1.0 NEG) Anti-Double Strand DNA Antibody 3 IU/mL Coding Level of Care Code Est Pt Level 5 (30255) Complex visit Add On G2211 Diagnoses Pain in joints of both feet M25.571; M25.572 Joint pain location: foot Laterality: bilateral Bilateral leg and foot pain M79.604; M79.605; M79.671; M79.672 IgG4 selectively high in plasma R76. Positive IRIS (antinuclear antibody) R76. Chiari malformation type I G93.5 Hemangioma of bone D18.09 Vitamin D deficiency E55.9 Mixed hyperlipidemia E78.2 Hyperlipidemia type: mixed hyperlipidemia Assessment & Plan Assessment & Plan (1) Joint pain: Code(s): M25.50 - Pain in unspecified joint Category: Medical Qualifiers: Joint pain location: foot Laterality: bilateral Qualified Code(s): M25.571 - Pain in right ankle and joints of right foot; M25.572 - Pain in left ankle and joints of left foot (2) Bilateral leg and foot pain: Code(s): M79.604 - Pain in right leg; M79.605 - Pain in left leg; M79.671 - Pain in right foot; M79.672 - Pain in left foot Category: Medical (3) IgG4 selectively high in plasma: Onset Date: ~07/23/19 Comment: 212 Code(s): R76.89 - Other specified abnormal immunological findings in serum Category: Medical (4) Positive IRIS (antinuclear antibody): Onset Date: ~01/2025 Comment: LaboratoryResultUnitsRangeInterpretationProvider Comments Anti-Nuclear Antibody ScreenPOSITIVE(NEGATIVE)Abnormal Anti-Nuclear Antibody Titer1:40titerHigh Anti-Nuclear Antibody Titer 21:40titerHigh Anti-Nuclear Antibody Titer 3Pending Anti-Nuclear Antibody PatternAbnormal Anti-Nuclear Antibody Pattern 2Nuclear, SpeckledAbnormal Anti-Nuclear Antibody Pattern 3Pending Code(s): R76.89 - Other specified abnormal immunological findings in serum Category: Medical (5) Chiari malformation type I: Code(s): G93.5 - Compression of brain Category: Medical (6) Hemangioma of bone: Comment: Left sacral intraosseous hemangioma 0.7 cm us 2022 Code(s): D18.09 - Hemangioma of other sites Category: Medical (7) Vitamin D deficiency: Code(s): E55.9 - Vitamin D deficiency, unspecified Category: Medical (8) HLD (hyperlipidemia): Code(s): E78.5 - Hyperlipidemia, unspecified Category: Medical Qualifiers: Hyperlipidemia type: mixed hyperlipidemia Qualified Code(s): E78.2 - Mixed hyperlipidemia (9) Vitamin D deficiency: Code(s): E55.9 - Vitamin D deficiency, unspecified Category: Medical Plan . Orders: Orders MR lumbar spine wo/w con Today D18.09 - Hemangioma of other sites, R76.89 - Other specified abnormal immunological findings in serum Lipid Panel Today E78.5 - Hyperlipidemia, unspecified HLA B27 Today M25.571 - Pain in right ankle and joints of right foot, M25.572 - Pain in left ankle and joints of left foot, R76.89 - Other specified abnormal immunological findings in serum NE electromyogram (EMG) Today M25.571 - Pain in right ankle and joints of right foot, M25.572 - Pain in left ankle and joints of left foot, M79.604 - Pain in right leg, M79.605 - Pain in left leg, M79.671 - Pain in right foot, M79.672 - Pain in left foot NE nerve conduction velocity Today M25.571 - Pain in right ankle and joints of right foot, M25.572 - Pain in left ankle and joints of left foot, M79.604 - Pain in right leg, M79.605 - Pain in left leg, M79.671 - Pain in right foot, M79.672 - Pain in left foot Immunoglobulins,IgG IgA IgM Today E55.9 - Vitamin D deficiency, unspecified, M25.571 - Pain in right ankle and joints of right foot, M25.572 - Pain in left ankle and joints of left foot, R76.89 - Other specified abnormal immunological findings in serum Vitamin D 25-OH Total Today E55.9 - Vitamin D deficiency, unspecified, M25.571 - Pain in right ankle and joints of right foot, M25.572 - Pain in left ankle and joints of left foot, R76.89 - Other specified abnormal immunological findings in serum Referrals Nutrition/Dietitian Referral E55.9 - Vitamin D deficiency, unspecified, E78.5 - Hyperlipidemia, unspecified
--- OUTSIDE RECORDS SUMMARY | 2025-04-20 08:16 | XMS_ITS | Clinical Summary ---
Author Organization [facility] Address [address] [employer] [employer] [address] [address] Phone Care Team Providers Care Sports Cartoonist Name Role Phone Unavailable Primary Care Provider Unavailabl e Allergies Active Allergy Reactions Criticality Noted Date Comments Bupropion Hcl Other (See Comments) Low 10/02/2016 Per pt report: [place] out of it Cat's Claw (Uncaria Tomentosa) Hives 10/02/2016 Codeine Phosphate GI Upset Low 10/02/2016 Erythromycin Hives 10/02/2016 Fluoxetine Other (See Comments) Low 10/02/2016 Per pt report: [place] out of it Sertraline Hcl Other (See Comments) Low 10/02/2016 Per pt report: [place] out of it Sulfamethoxazole-Trime thoprim Nausea and/or [...] (06/26/2019 10:04 AM EST): Previously evaluated at [facility] with EUS, reportedly normal. Recommend follow [...] this topic Medical Devices Implanted Type Area Cooker Helper Device Identifier Shelf Expiration Date Model / [...] SEE NARRATIVE - 05/31/2020 9:47 [place] [address] Research Recruiter: Ely Carver MD FISH BAIT PROCESSING SUPERVISOR Cytology Report FINAL DIAGNOSIS A. PAP SMEAR [...] 52, 56, 58, 59, 66, 68) by [employer] Onclarity HR-HPV analysis. Clinical correlation is advised. This HPV test was performed at [facility], [address] [place] [address]. This test has been FDA approved for SurePath cervical cytology specimens. The accuracy and precision of this test for all other specimen sources has been verified in the Cytopathology Laboratory of the [facility] and has not been cleared or approved by the U.S. Food and Drug Administration. Clinical correlation is advised. CLINICAL HISTORY Date of Last Menstrual Period: 05-22-2020 Contraceptive History: IUD Other Clinical Conditions: Screening Pap SPECIMEN SOURCE A: PAP SMEAR (SUREPATH) CE Patient Name: KUMAR MADSEN : 1985 (Age: 34) Sex: F Institution: [facility] Location: [facility] Date of Collection: 05/26/2020 Date of Reported: 05/30/2020 15:22 Results to: Anita Hope MD Anita Hope MD CYTOLOGY ORDERABLES Edited Re sult - Final SEE NARRATIVE from Last 3 Months or Most Recently Relevant to Health Maintenance [place] [address] [address] OUT [facility] PPO [facility] PPO [facility] OUT [facility] PPO [facility] PPO [facility] OUT OF 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 It is not the complete legal health record.[facility]
--- OUTSIDE RECORDS SUMMARY | 2025-04-20 08:16 | XMS_ITS | Encounter Summary ---
Author Organization [facility] Address [address] [address] Phone Care Team Providers Care Internet Technology Manager Name Role Phone Marily Elkins FORESTRY EXTENSION SPECIALIST Unavailable [phone] Iris Chamberlain MD Unavailable Gilma Cornelius DO Unavailable [phone] Erlin Pennington MD Unavailable [phone] Miriam Valladares MD Unavailable [phone] Artie Mayorga CNP Unavailable Erlin Pennington MD Primary Care Provider [phone] Encounter Details Date Type Department Care Team (Latest Contact Info) Description 04/21/2018 Ancillary Orders Virtual Department 30 [place] [address] Gokul Stevens MD [address] [place] [address] [email or web address] Chronic pancreatitis, unspecified pancreatitis type Social History [...] right lobe of the liver. POS - [id number] Narrative 05/14/2018 12:10 PM EST US ABDOMEN [...] right lobe of the liver. POS - [id number] us Gokul Stevens MD IMG US ABDOMEN [...] documented as of this encounter Care Teams Internet Technology Manager Relationship Specialty Start Date End Date Erlin Pennington MD [address] [place] [address], [address] [place] [address] PCP - General 03/05/17 09/24/24 Marily Elkins NP [address] [place] [address] Historical LMR Provider 03/04/17 05/27/21 Iris Chamberlain MD [address] [place] [address], [address] [place] [address] Historical LMR Provider 03/04/17 05/27/21 Gilma Cornelius DO 30 [place] [address] Historical LMR Provider 03/04/17 2 Erlin Pennington MD 22 [facility], [address] [place] [address] Historical LMR Provider 03/04/17 5 Miriam Valladares MD [address] [place] [address] Historical LMR Provider 03/04/17 2 Artie Mayorga CNP 22 [facility], [address] [place] [address] [email or web address] Historical LMR Provider 03/04/17 documented as of this encounter Additional Source Comments The information contained in this document represents components of the legal health record. It is not the complete legal health record.[facility]
--- OUTSIDE RECORDS SUMMARY | 2025-04-20 08:16 | XMS_ITS | Encounter Summary ---
Author Organization [facility] Address [address] [address] Phone Care Team Providers Care Wood Club Neck Whipper Name Role Phone Marily Elkins SOURCING ANALYST Unavailable [phone] Iris Chamberlain MD Unavailable Gilma Cornelius DO Unavailable [phone] Erlin Pennington MD Unavailable [phone] Miriam Valladares MD Unavailable [phone] Artie Mayorga CNP Unavailable Erlin Pennington MD Primary Care Provider Encounter Details Date Type Department Care Team (Late st Contact Info) Description 04/21/2018 Ancillary Orders Virtual Department 30 [place] [address] Gokul Stevens MD [address] [place] [address] [email or web address] Social History Tobacco Use Types Packs/Day Years [...] documented as of this encounter Care Teams Wood Club Neck Whipper Relationship Specialty Start Date End Date Erlin Pennington MD [address] [place] [address], [address] [place] [address] PCP - General 03/05/17 09/24/24 Marily Elkins NP [address] [place] [address] Historical LMR Provider 03/04/17 05/27/21 Iris Chamberlain MD [address] [place] [address], [address] [address] Historical LMR Provider 03/04/17 05/27/21 Gilma Cornelius DO [address] [place] [address] Historical LMR Provider 03/04/17 2 Erlin Pennington MD [address] [place] [address] Historical LMR Provider 03/04/17 5 Miriam Valladares MD [address] [place] [address] Historical LMR Provider 03/04/17 2 Artie Mayorga CNP [address] [place] [address], [address] [place] [address] [email or web address] Historical LMR Provider 03/04/17 documented as of this encounter Additional Source Comments The information contained in this document represents components of the legal health record. It is not the complete legal health record.[facility]
--- OUTSIDE RECORDS SUMMARY | 2025-04-20 08:16 | XMS_ITS | Encounter Summary ---
Author Organization [facility] Address [facility] [email or web address] [address] [address] Phone Care Team Providers Care System Programmer Name Role Phone Marily Elkins INTENSIVE CARE MEDICINE SPECIALIST Unavailable [phone] Iris Chamberlain MD Unavailable Gilma Cornelius DO Unavailable [phone] Erlin Pennington MD Unavailable [phone] Miriam Valladares MD Unavailable [phone] Artie Mayorga CNP Unavailable Erlin Pennington MD Primary Care Provider [phone] Encounter Details Date Type Department Care Team (Late st Contact Info) Description 02/05/2020 Procedure Pass [facility], [address] [address] Social History Tobacco Use Types Packs/Day Years [...] documented as of this encounter Care Teams System Programmer Relationship Specialty Start Date End Date Erlin Pennington MD [address] [place] [address] PCP - General 03/05/17 09/24/24 Marily Elkins, RONI [address] [place] [address] Historical LMR Provider 03/04/17 05/27/21 Iris Chamberlain MD [address] [place] [address], [facility] [address] [place] [address] Historical LMR Provider 03/04/17 05/27/21 Gilma Cornelius DO [address] [place] [address] Historical LMR Provider 03/04/17 2 Erlin Pennington MD [address] [place] [address] Historical LMR Provider 03/04/17 5 Miriam Valladares MD [address] [place] [address] Historical LMR Provider 03/04/17 2 Artie Mayorga CNP 22 [facility], [address] [place] [address] [email or web address] Historical LMR Provider 03/04/17 documented as of this encounter Additional Source Comments The information contained in this document represents components of the legal health record. It is not the complete legal health record.[facility]
--- OUTSIDE RECORDS SUMMARY | 2025-04-20 08:16 | XMS_ITS | Encounter Summary ---
Author Organization [facility] Address Formerly [facility] [employer] [address] [address] Phone Care Team Providers Care Mechanical Operator Name Role Phone Marily Elkins REGULATORY SERVICES CONSULTANT Unavailable [phone] Iris Chamberlain MD Unavailable Gilma Cornelius DO Unavailable [phone] Erlin Pennington MD Unavailable [phone] Miriam Valladares MD Unavailable [phone] Artie Mayorga VULCANIZING PRESS OPERATOR Unavailable [phone] Erlin Pennington MD Primary Care Provider [phone] Encounter Details Date Type Department Care Team (Latest Contact Info) Description 01/28/2020 Transcribe Orders [facility]leb [place] [address] [place], [place] [id number] Manjinder Staples MD [address] [address] [email or web address] Chronic pancreatitis, unspecified pancreatitis type (Primary Dx) [...] REACTIVE PROTEIN <0.3 0.0 - 4.0 mg/L [facility] Blood 01/28/2020 2:03 PM EDT 01/28/2020 2:07 PM EDT us Manjinder Staples MD LAB BLOOD BKR ORDERABLES Fin al Result Performing Organization Address City/State/[facility] Co de Phone Number [address] [address] * Comprehensive metabolic panel (01/28/2020 2:03 PM EDT) SODIUM 138 133 - 146 mmol/L [facility] POTASSIUM 4.3 3.3 - 5.1 mmol/L [facility] CHLORIDE 104 96 - 108 mmol/L [facility] CO2 24 21 - 35 mmol/L [facility] BUN 13 6 - 19 mg/dL [facility] CREATININE 0.70 0.5 - 1.5 mg/dL [facility] GLUCOSE 95 70 - 99 mg/dL [facility] ALBUMIN 4.3 3.9 - 4.8 g/dL [facility] TOTAL PROTEIN 7.1 6.5 - 8.0 g/dL [facility] CALCIUM 9.3 8.4 - 10.3 mg/dL [facility] ALKALINE PHOSPHATASE 50 39 - 117 U/L [facility] TOTAL BILIRUBIN 0.3 0.0 - 1.2 mg/dL [facility] AST 29 0 - 37 U/L [facility] ALT 13 0 - 40 U/L [facility] GLOBULIN 2.8 1 - 4.8 g/dL [facility] EGFR 111 >59 mL/min/1.7 3m2 [facility] Comment:Estimated glomerular filtration rate calculated using the CKD-EPI equation. ANION GAP 14 10 - 20 mmol/L [facility] Blood 01/28/2020 2:03 PM EDT 01/28/2020 2:07 PM EDT us Manjinder Staples MD LAB BLOOD BKR ORDERABLES Fin al Result Performing Organization Address City/[facility]/ZIP Co de Phone Number [address] [address] * CBC (01/28/2020 2:03 PM EDT) WBC 5.52 4.00 - 11.00 K/uL [facility] Comment:Note Reference Range updates to all CBC and Differential results. RBC 4.67 3.72 - 5.30 M/uL [facility] HGB 14.9 10.6 - 15.5 g/dL [facility] Comment:Note updated Referen ce Ranges for all CBC and Differential results. HCT 44.2 32.0 - 45.0 % [facility] PLT 252 140 - 430 K/uL [facility] MCV 94.6 78.0 - 97.0 fL [facility] MCH 31.9 25.0 - 33.0 pg [facility] MCHC 33.7 32.0 - 36.0 g/dL [facility] RDW 12.3 11.0 - 16.0 % [facility] MPV 10.6 8.4 - 12.8 fl [facility] NRBC 0.00 0 /100 WBCs [facility] ABSOLUTE NRBC 0.00 0 K/uL [facility] Blood 01/28/2020 2:03 PM EDT 01/28/2020 2:07 PM EDT us Manjinder Staples MD LAB BLOOD BKR ORDERABLES Fin al Result [address] [address] * Lipase (01/28/2020 2:03 PM EDT) LIPASE 57 16 - 63 U/L [facility] Blood 01/28/2020 2:03 PM EDT 01/28/2020 2:07 PM EDT us Manjinder Staples MD LAB BLOOD BKR ORDERABLES Fin al Result [address] [address] * (ABNORMAL) Amylase (01/28/2020 2:03 PM EDT) AMYLASE 104(H) 28 - 100 U/L [facility] Blood 01/28/2020 2:03 PM EDT 01/28/2020 2:07 PM EDT us Manjinder Staples MD LAB BLOOD BKR ORDERABLES Fin al Result Performing Organization Address [facility] Co de Phone Number [address] [address] documented in this encounter Visit Diagnoses Diagnosis [...] documented as of this encounter Care Teams Mechanical Operator Relationship Specialty Start Date End Date Erlin Pennington MD [address] [place] [address], [address] [place] [address] [email or web address] PCP - General 03/05/17 09/24/24 Marily Elkins NP [address] [place] [address] Historical LMR Provider 03/04/17 05/27/21 Iris Chamberlain MD [address] [place] [address], [address] [place] [address] Historical LMR Provider 03/04/17 05/27/21 Gilma Cornelius DO [address] [place] [address] Historical LMR Provider 03/04/17 2 Erlin Pennington MD [address] [place] [address], [address] [place] [address] [email or web address] Historical LMR Provider 03/04/17 5 Miriam Valladares MD [address] [place] [address] Historical LMR Provider 03/04/17 2 Artie Mayorga CNP [address] [place] [address], [address] [place] [address] [email or web address] Historical LMR Provider 03/04/17 documented as of this encounter Additional Source Comments The information contained in this document represents components of the legal health record. It is not the complete legal health record.[facility]
--- OUTSIDE RECORDS SUMMARY | 2025-04-20 08:16 | XMS_ITS | Encounter Summary ---
Author Organization [facility] Address [facility] [employer] [address] [address] Phone Care Team Providers Care Furniture Painter Name Role Phone Marily Elkins MATRIX WORKER Unavailable [phone] Iris Chamberlain MD Unavailable Gilma Cornelius DO Unavailable [phone] Erlin Pennington MD Unavailable [phone] Miriam Valladares MD Unavailable [phone] Artie Mayorga CNP Unavailable Erlin Pennington MD Primary Care Provider Encounter Details Date Type Department Care Team (Latest Contact Info) Description 09/24/2018 Transcribe Orders [facility] Specimen Processing 30 [place] [address] Rashmi Gordon PA-C [address], [address] [place] [address] [email or web address] Acute pancreatitis, unspecified complication status, unspecified pancreatitis [...] Pancreatic Elastase, Stool (09/24/2018 6:52 PM EDT) [facility] ST PANCREA ELASTASE 480 mcg/g [facility] Comment: (NOTE) Adult and Pediatric Reference Ranges for Pancreatic Elastase-1: Normal: >200 mcg/g Moderate Pancreatic Insufficiency: 100-200 mcg/g Severe Pancreatic Insufficiency: <100 mcg/g Elastase-1 (E-1) assay results are expressed in mcg/g, which represent mcg E1/g feces. It is not necessary to interrupt enzyme substitution therapy. Test Performed by: [employer] [address] [place] [address] Stool (Stool) 09/24/2018 6:5 2 PM EDT 09/24/2018 6:54 PM EDT Rashmi Gordon PA-C BODY FLUIDS AND STOOLS ORDERABL ES Final Result [facility] documented in this encounter Visit Diagnoses Diagnosis Acute pancreatitis, unspecified complication status, unspecified pancreatitis type- Primary documented in this encounter Additional Health Concerns Infection Onset Date Last Indicated Resolved Time CoV-Exposed Comment:Recent close contact 05/30/2020 05/30/2020 06/13/2020 1:24 AM EST CoV-Presumed 10/01/2021 10/01/2021 10/22/2021 1:21 AM EDT documented as of this encounter Care Teams Furniture Painter Relationship Specialty Start Date End Date Erlin Pennington MD [address] [place] [address], [address] [place] [address] [email or web address] PCP - General 03/05/17 09/24/24 Marily Elkins NP 30 [place] [address] Historical LMR Provider 03/04/17 05/27/21 Iris Chamberlain MD 22 [facility], [address] [place] [address] Historical LMR Provider 03/04/17 05/27/21 Gilma Cornelius DO [address] [place] [address] Historical LMR Provider 03/04/17 2 Erlin Pennington MD [address] [place] [address], [address] [place] [address] [email or web address] Historical LMR Provider 03/04/17 5 Miriam Valladares MD [address] [place] [address] Historical LMR Provider 03/04/17 2 Artie Mayorga CNP [address] [place] [address], [address] [place] [address] [email or web address] Historical LMR Provider 03/04/17 documented as of this encounter Additional Source Comments The information contained in this document represents components of the legal health record. It is not the complete legal health record.[facility]
--- OUTSIDE RECORDS SUMMARY | 2025-04-20 08:16 | XMS_ITS | Clinical Summary ---
Author Organization [facility] Address [address] [place] [address] Phone Care Team Providers Care Qa Developer Name Role Phone TiffanyManuelajim Brown MINI BAR ATTENDANT Primary Care Provider Social History Tobacco Use [...] patient's age to complete this topic Insurance [employer] [facility] Care Teams Qa Developer Relationship Specialty Start Date End Date Daria Allen FNP [address] [place] [address] PCP - General Internal Medicine 11/24/24
--- OUTSIDE RECORDS SUMMARY | 2025-04-20 08:16 | XMS_ITS | Encounter Summary ---
Author Organization [facility] Address [facility] [employer] [address] [address] Phone Care Team Providers Care Linker Up Name Role Phone Marily Elkins SHANK BURNISHER Unavailable [phone] Iris Chamberlain MD Unavailable Gilma Cornelius DO Unavailable [phone] Erlin Pennington MD Unavailable [phone] Miriam Valladares MD Unavailable [phone] Artie Mayorga OIL FIELD EQUIPMENT MECHANIC Unavailable Erlin Pennington MD Primary Care Provider Encounter Details Date Type Department Care Team (Latest Contact Info) Description 07/23/2019 Transcribe Orders [facility]le[facility] [place] [address] [id number] Leydi Durham PA 10 [place] [address] Acute pancreatitis, unspecified complication status, unspecified pancreatitis [...] EST) WBC 8.02 4.00 - 11.00 K/uL [facility] Comment:Note Reference Range updates to all CBC and Differential results. RBC 4.64 3.72 - 5.30 M/uL [facility] HGB 14.8 10.6 - 15.5 g/dL [facility] Comment:Note updated Referen ce Ranges for all CBC and Differential results. HCT 43.3 32.0 - 45.0 % [facility] PLT 248 140 - 430 K/uL [facility] MCV 93.3 78.0 - 97.0 fL [facility] MCH 31.9 25.0 - 33.0 pg [facility] MCHC 34.2 32.0 - 36.0 g/dL [facility] RDW 12.6 11.0 - 16.0 % [facility] MPV 10.5 8.4 - 12.8 [facility] NRBC 0.00 0 /100 WBCs [facility] ABSOLUTE NRBC 0.00 0 K/uL [facility] Blood 07/23/2019 11:5 6 AM EST 07/23/2019 12:01 PM EST us Leydi TERRY LAB BLOOD BKR ORDERABLES Fi nal Result [address] [address] * (ABNORMAL) IgG subclasses (07/23/2019 11:56 AM EST) IGG 1 509 341 - 894 mg/dL [facility]/PATH [address] IGG 2 598 171 - 632 mg/dl [facility] [address] IGG 3 88.3 18.4 - 106.0 mg/dl [facility]PATH [address] IGG 4 212.0(H) 2.4 - 121.0 mg/dl [facility]PATH [address] TOTAL IGG 1,360 237 - 1,590 mg/dl [facility] Blood 07/23/2019 11:5 6 AM EST 07/23/2019 12:01 PM EST us Leydi TERRY LAB BLOOD ORDERABLES Final Result Performing Organization Address City/[facility]/ZIP Co de Phone Number [facility] LAB MED/[address] [place] [address] * Lipase (07/23/2019 11:56 AM EST) LIPASE 47 16 - 63 U/L [facility] Blood 07/23/2019 11:5 6 AM EST 07/23/2019 12:01 PM EST us Leydi TERRY LAB BLOOD BKR ORDERABLES Fi nal Result Performing Organization Address [facility] de Phone Number [address] [address] documented in this encounter Visit Diagnoses Diagnosis [...] documented as of this encounter Care Teams Linker Up Relationship Specialty Start Date End Date Erlin Pennington MD [address] [place] [address], [address] [place] [address] [email or web address] PCP - General 03/05/17 09/24/24 Marily Elkins NP [address] [place] [address] Historical LMR Provider 03/04/17 05/27/21 Iris Chamberlain MD 22 [facility], [address] [place] [address] Historical LMR Provider 03/04/17 05/27/21 Gilma Cornelius DO [address] [place] [address] Historical LMR Provider 03/04/17 2 Erlin Pennington MD [address] [place] [address], [address] [place] [address] [email or web address] Historical LMR Provider 03/04/17 5 Miriam Valladares MD [address] [place] [address] Historical LMR Provider 03/04/17 2 Artie Mayorga CNP [address] [place] [address], [address] [place] [address] [email or web address] Historical LMR Provider 03/04/17 documented as of this encounter Additional Source Comments The information contained in this document represents components of the legal health record. It is not the complete legal health record.[facility]
--- OUTSIDE RECORDS SUMMARY | 2025-04-20 08:16 | XMS_ITS | Encounter Summary ---
Author Organization [facility] Address [address] [place] [address] Phone Care Team Providers Care Hay Rake Operator Name Role Phone Marily Elkins INFO PRINT PRESS OPERATOR Unavailable [phone] Iris Chamberlain MD Unavailable Gilma Cornelius DO Unavailable [phone] Erlin Pennington MD Unavailable [phone] Miriam Valladares MD Unavailable [phone] Artie Mayorga CNP Unavailable [phone] Erlin Pennington MD Primary Care Provider [phone] Reason for Referral * MRI/CAT Scan - Closed Specialty Diagnoses / Procedures Referred By Contac t Referred To Contact Radiology Diagnoses Idiopathic chronic pancreatitis Procedures MRI Cholangiopancreatography (MRCP) Manjinder Staples MD Phone: tel: fax: mailto:[email or web address] Referral ID Status Reason Start Date Expiration Date Visits Re quested Visits Authorized [id number] Closed 02/04/2020 08/02/2020 1 1 Encounter Details Date Type Department Care Team (Latest Contact Info) Description 02/05/2020 Transcribe Orders [facility] Department [address] [place] [address] Manjinder Staples MD [address] [place] [address] [email or web address] Idiopathic chronic pancreatitis (Primary Dx) Social History [...] vessel. No other pathology is apparent. POS [id number] Narrative 02/19/2020 9:43 AM EDT TECHNIQUE: 1.5 [...] ascites, adenopathy or pleural effusion. Procedure Note Maroi Delgado MD - 02/19/2020 TECHNIQUE: 1.5 Lori [...] vessel. No other pathology is apparent. POS [id number] Manjinder Staples MD IMG MR ABDOMEN Final [...] documented as of this encounter Care Teams Hay Rake Operator Relationship Specialty Start Date End Date Erlin Pennington MD [address] [place] [address], [address] [place] [address] PCP - General 03/05/17 09/24/24 Marily Elkins NP [address] [place] [address] Historical LMR Provider 03/04/17 05/27/21 Iris Chamberlain MD [address] [facility], [address] [place] [address] Historical LMR Provider 03/04/17 05/27/21 Gilma Cornelius DO [address] [place] [address] Historical LMR Provider 03/04/17 2 Erlin Pennington MD [address] [place] [address], [address] [place] [address] Historical LMR Provider 03/04/17 5 Miriam Valladares MD [address] [place] [address] Historical LMR Provider 03/04/17 2 Artie Mayorga CNP [address] [facility], [address] [place] [address] Historical LMR Provider 03/04/17 documented as of this encounter Additional Source Comments The information contained in this document represents components of the legal health record. It is not the complete legal health record.[facility]
--- OUTSIDE RECORDS SUMMARY | 2025-04-20 08:16 | XMS_ITS | Encounter Summary ---
Author Organization [facility] Address [facility] [employer] [address] [address] Phone Care Team Providers Care Watch Repairer Apprentice Name Role Phone Marily Elkins RPG DEVELOPER Unavailable [phone] Iris Chamberlain MD Unavailable Gilma Cornelius DO Unavailable [phone] Erlin Pennington MD Unavailable [phone] Miriam Valladares MD Unavailable [phone] Artie Mayorga CNP Unavailable Erlin Pennington MD Primary Care Provider [phone] Encounter Details Date Type Department Care Team (Latest Contact Info) Description 12/20/2017 Transcribe Orders [facility] [address] [place] [address] Leydi Durham PA [address] [place] [address] [id number] Diagnosis unknown (Primary Dx) Social History Tobacco [...] EDT) LIPASE 60 16 - 63 U/L [facility] Blood 12/20/2017 5:11 PM EDT 12/20/2017 5:14 PM EDT us Leydi TERRY LAB BLOOD BKR ORDERABLES Fi nal Result Performing Organization Address City/[facility]/ZIP Co de Phone Number [address] [address] * Comprehensive metabolic panel (12/20/2017 5:11 PM EDT) SODIUM 139 133 - 146 mmol/L [facility] POTASSIUM 3.8 3.3 - 5.1 mmol/L [facility] CHLORIDE 102 96 - 108 mmol/L [facility] CO2 24 21 - 35 mmol/L [facility] BUN 16 6 - 19 mg/dL [facility] CREATININE 0.90 0.5 - 1.5 mg/dL [facility] GLUCOSE 87 70 - 99 mg/dL [facility] ALBUMIN 4.2 3.9 - 4.8 g/dL [facility] TOTAL PROTEIN 7.1 6.5 - 8.0 g/dL [facility] CALCIUM 8.5 8.4 - 10.3 mg/dL [facility] ALKALINE PHOSPHATASE 51 39 - 117 U/L [facility] TOTAL BILIRUBIN 0.3 0.0 - 1.2 mg/dL [facility] AST 17 0 - 37 U/L [facility] ALT 12 0 - 40 U/L [facility] GLOBULIN 2.9 1 - 4.8 g/dL [facility] EGFR 83 >59 mL/min/1.7 3m2 [facility] Comment:If patient is black, multiply result by 1.159. Estimated glomerular filtration rate calculated using the CKD-EPI equation. ANION GAP 17 10 - 20 mmol/L [facility] Blood 12/20/2017 5:11 PM EDT 12/20/2017 5:14 PM EDT us Leydi TERRY LAB BLOOD BKR ORDERABLES Fi nal Result [facility] [address] [place] [address] * (ABNORMAL) CBC and differential (12/20/2017 5:11 PM EDT) WBC 6.62 3.40 - 11.20 K/uL [facility] RBC 4.36 3.80 - 4.80 M/uL [facility] HGB 14.3 12.0 - 15.0 g/dL [facility] HCT 40.6 36.0 - 46.0 % [facility] PLT 252 130 - 400 K/uL [facility] MCV 93.1 79.0 - 98.0 fL [facility] MCH 32.8 27.0 - 34.8 pg [facility] MCHC 35.2 31.5 - 36.0 g/dL [facility] RDW 12.2 10.8 - 14.6 % [facility] MPV 10.5 9.4 - 12.4 fl [facility] NRBC 0.00 /100 WBCs [facility] ABSOLUTE NRBC 0.00 K/uL [facility] DIFF METHOD Auto [facility] NEUTS 47.5 45.30 - 77.70 % [facility] LYMPHS 42.7(H) 12.30 - 39.70 % [facility] MONOS 5.3 4.10 - 12.80 % [facility] EOS 3.2 0 - 7.2 % [facility] BASOS 1.1 0 - 2.80 % [facility] Granulocytes, immature (%) 0.2 0.0 - 0.9 % [facility] ABSOLUTE NEUTS 3.15 1.40 - 7.70 K/uL [facility] ABSOLUTE LYMPHS 2.83 0.60 - 3.20 K/uL [facility] ABSOLUTE MONOS 0.35 0.11 - 0.59 K/uL [facility] ABSOLUTE EOS 0.21 0.01 - 0.50 K/uL [facility] ABSOLUTE BASOS 0.07 0.00 - 0.08 K/uL [facility] Granulocytes, immature 0.01 0.00 - 0.05 K/uL [facility] Blood 12/20/2017 5:11 PM EDT 12/20/2017 5:14 PM EDT us Leydi TERRY LAB BLOOD BKR ORDERABLES Fi nal Result [address] [address] documented in this encounter Visit Diagnoses Diagnosis Diagnosis unknown- Primary documented in this encounter Additional Health Concerns Infection Onset Date Last Indicated Resolved Time CoV-Exposed Comment:Recent close contact 05/30/2020 05/30/2020 06/13/2020 1:24 AM EST CoV-Presumed 10/01/2021 10/01/2021 10/22/2021 1:21 AM EDT documented as of this encounter Care Teams Watch Repairer Apprentice Relationship Specialty Start Date End Date Erlin Pennington MD [address] [place] [address] PCP - General 03/05/17 09/24/24 Marily Elkins NP [address] [place] [address] Historical LMR Provider 03/04/17 05/27/21 Iris Chamberlain MD [address] [place] [address], [address] [address] Historical LMR Provider 03/04/17 05/27/21 Gilma Cornelius DO [address] [place] [address] Historical LMR Provider 03/04/17 2 Erlin Pennington MD [address] [place] [address] Historical LMR Provider 03/04/17 5 Miriam Valladares MD [address] [place] [address] Historical LMR Provider 03/04/17 2 Artie Mayorga CNP [address] [place] [address], [address] [place] [address] [email or web address] Historical LMR Provider 03/04/17 documented as of this encounter Additional Source Comments The information contained in this document represents components of the legal health record. It is not the complete legal health record.[facility]
[2025-04-20 08:20] VITALS: BP 110/56; PULSE 86; RESP 16; TEMP 36.7; O2SAT 98; BMI 29.3
== END 2025-04-20 09:32 | disposition home or self-care (01) ==
LOC: HO.HMCFM 08:13
PROVIDERS: PCP Nurse Practitioner Family; Visit Provider Nurse Practitioner Family
DX: M25.571 Pain in right ankle and joints of right foot (principal); M25.572 Pain in left ankle and joints of left foot; M79.604 Pain in right leg; G93.5 Compression of brain; M79.605 Pain in left leg; R76.89 Other specified abnormal immunological findings in serum; D18.09 Hemangioma of other sites; E55.9 Vitamin D deficiency, unspecified; E78.2 Mixed hyperlipidemia

== ENCOUNTER 2025-04-20 08:13 | Outpatient (REF) | payer OTHER, SELFPAY ==
[2025-04-20 11:54] LABS: Cholesterol 262 mg/dL (<200); HDL Cholesterol 73 mg/dL (>40); Triglycerides 72 mg/dL (<150)
[2025-04-24 14:59] LABS: HLA B27 Negative (Negative)
== END 2025-04-20 08:14 | disposition home or self-care (01) ==
LOC: HO.WFDLDS 08:13
PROVIDERS: PCP Nurse Practitioner Family; Visit Provider Nurse Practitioner Family
DX: M25.571 Pain in right ankle and joints of right foot (principal); E55.9 Vitamin D deficiency, unspecified; R76.89 Other specified abnormal immunological findings in serum; E78.5 Hyperlipidemia, unspecified; M25.572 Pain in left ankle and joints of left foot; G93.5 Compression of brain; D18.09 Hemangioma of other sites
CPT/HCPCS: 36415; 80061; 82306; 82784; 86812

== ENCOUNTER → 2025-05-17 08:50 | Outpatient (BNV) | payer OTHER, SELFPAY | PROVIDERS: PCP Nurse Practitioner Family; Visit Provider Radiology Diagnostic Radiology | DX: D16.8 Benign neoplasm of pelvic bones, sacrum and coccyx (principal) | CPT/HCPCS: 72158 ==

== ENCOUNTER 2025-05-17 08:56 | Outpatient (REF) | payer OTHER, SELFPAY ==
--- NOTE | ~2025-05-17 | MR_ITS ---
EXAMINATION: MR LUMBAR SPINE WITHOUT AND WITH CONTRAST CLINICAL INFORMATION: 39-year-old female. Follow-up for left sacral intraosseous hemangioma. Patient states no symptoms. COMPARISON: No prior imaging available. TECHNIQUE: Multiplanar multisequence MR imaging of the lumbar spine was done before and after the administration of 7.5 mL IV Gadavist contrast. Examination was performed on a 1.5 Lori Siemens magnet, utilizing standard sequences. FINDINGS: CORONAL ALIGNMENT: -Normal. SAGITTAL ALIGNMENT: -Normal lordosis. No subluxations. Normal sagittal alignment. LUMBOSACRAL JUNCTION: -Normal. There are 5 [id number] lumbar-type vertebral bodies. VERTEBRAL BODIES/BONE MARROW: -There is no abnormal edema, compression deformity, or suspicious focal bony abnormality. -In the left sacral wing, there is a small fat-containing intraosseous hemangioma measuring approximately 10 x 8 x 12 mm, (series 8, image 45; series 12, image 45; series 5, image 13), benign. This requires no further follow-up for imaging. DISCS: -Normal in height and signal throughout. SPINAL CANAL: -No abnormal developmental findings. -No abnormal intra-or extra medullary enhancement identified. CONUS MEDULLARIS: -Terminates at L2. Morphology and signal is normal. INTRADURAL NERVE ROOTS: - Within normal limits. No abnormal nerve root enhancement. Axial Disc Space Images: T12-L1: No central canal or neural foraminal stenosis. Normal facets. L1-L2: No central canal or neural foraminal stenosis. Normal facets. L2-L3: No central canal or neural foraminal stenosis. Normal facets. L3-L4: No central canal or neural foraminal stenosis. Normal facets. L4-L5: No central canal or neural foraminal stenosis. Minimal bilateral facet arthrosis. L5-S1: No central canal or neural foraminal stenosis. Normal facets. IMAGED SI JOINTS: -Normal. PARAVERTEBRAL AND INCLUDED EXTRASPINAL SOFT TISSUES: -Normal. MR/MR lumbar spine wo/w con IMPRESSION: 1. There is a small intraosseous hemangioma of the left sacral ala measuring 10 x 8 x 12 mm. This is a benign lesion. No further imaging follow-up suggested nor required. 2. The remainder of the examination is normal. Electronically signed by: Shaquille Ku MD 05/17/2025 10:36 AM EST
--- OUTSIDE RECORDS SUMMARY | 2025-05-17 09:09 | XMS_ITS | Clinical Summary ---
Author Organization [facility] Address [address] [employer] [address] [address] Phone Care Team Providers Care High Risk Ob Name Role Phone Unavailable Primary Care Provider Unavailabl e Allergies Active Allergy Reactions Criticality Noted Date Comments Bupropion Hcl Other (See Comments) Low 10/02/2016 Per pt report: [place] out of it Cat's Claw (Uncaria Tomentosa) Hives 10/02/2016 Codeine Phosphate GI Upset Low 10/02/2016 Erythromycin Hives 10/02/2016 Fluoxetine Other (See Comments) Low 10/02/2016 Per pt report: [place] out of it Sertraline Hcl Other (See Comments) Low 10/02/2016 Per pt report: [place] out of it Sulfamethoxazole-Trime thoprim Nausea and/or [...] (06/26/2019 10:04 AM EST): Previously evaluated at [facility] with EUS, reportedly normal. Recommend follow up [...] this topic Medical Devices Implanted Type Area Hot Strip Mill Supervisor Device Identifier Shelf Expiration Date Model / [...] SEE NARRATIVE - 05/31/2020 9:47 [place] [address] Hair Worker: Ely Carver MD ANIME ARTIST Cytology Report FINAL DIAGNOSIS A. PAP SMEAR [...] 52, 56, 58, 59, 66, 68) by [employer] Onclarity HR-HPV analysis. Clinical correlation is advised. This HPV test was performed at [facility], [address] [place] [address]. This test has been FDA approved for SurePath cervical cytology specimens. The accuracy and precision of this test for all other specimen sources has been verified in the Cytopathology Laboratory of the [facility] and has not been cleared or approved by the U.S. Food and Drug Administration. Clinical correlation is advised. CLINICAL HISTORY Date of Last Menstrual Period: 05-22-2020 Contraceptive History: IUD Other Clinical Conditions: Screening Pap SPECIMEN SOURCE A: PAP SMEAR (SUREPATH) CE Patient Name: KUMAR MADSEN : 1985 (Age: 34) Sex: F Institution: [facility] Location: [facility] Date of Collection: 05/26/2020 Date of Reported: 05/30/2020 15:22 Results to: Anita Hope MD Anita Hope MD CYTOLOGY ORDERABLES Edited Re sult - Final SEE NARRATIVE from Last 3 Months or Most Recently Relevant to Health Maintenance [place] [address] [place] [address] OUT [facility] PPO [facility] PPO [facility] OUT [facility]PO [facility] PPO [facility] PPO [facility] OUT OF [facility] Advance Directives For more information, please contact: [phone] (9AM - 5PM [place], Saturday-Saturday) Documents on File Type Date Recorded Patient Medical Doctor Expl anatformerly [facility] Healthcare Proxy 10/21/2018 [facility] Care Proxy (10/15/18) Additional Source Comments The information contained in this document represents components of the legal health record. It is not the complete legal health record.[facility]
--- OUTSIDE RECORDS SUMMARY | 2025-05-17 09:09 | XMS_ITS | Encounter Summary ---
Author Organization [facility] Address [address] [employer] [address] [address] Phone Care Team Providers Care Supplier Manager Name Role Phone Marily Elkins PRECISION INSPECTOR Unavailable [phone] Iris Chamberlain MD Unavailable Gilma Cornelius DO Unavailable [phone] Erlin Pennington MD Unavailable [phone] Miriam Valladares MD Unavailable [phone] Artie Mayorga CNP Unavailable Erlin Pennington MD Primary Care Provider Encounter Details Date Type Department Care Team (Late st Contact Info) Description 04/21/2018 Ancillary Orders Virtual Department [address] [place] [address] Gokul Stevens MD [address] [place] [address] [email or web address] Social History Tobacco Use Types Packs/Day Years [...] documented as of this encounter Care Teams Supplier Manager Relationship Specialty Start Date End Date Erlin Pennington MD [address] [place] [address], [address] [place] [address] PCP - General 03/05/17 09/24/24 Marily Elkins NP [address] [place] [address] Historical LMR Provider 03/04/17 05/27/21 Iris Chamberlain MD [address] [place] [address], [address] [address] Historical LMR Provider 03/04/17 05/27/21 Gilma Cornelius DO [address] [place] [address] Historical LMR Provider 03/04/17 2 Erlin Pennington MD [address] [place] [address] Historical LMR Provider 03/04/17 5 Miriam Valladares MD [address] [place] [address] Historical LMR Provider 03/04/17 2 Artie Mayorga CNP [address] [place] [address], [address] [place] [address] [email or web address] Historical LMR Provider 03/04/17 documented as of this encounter Additional Source Comments The information contained in this document represents components of the legal health record. It is not the complete legal health record.[facility]
--- OUTSIDE RECORDS SUMMARY | 2025-05-17 09:09 | XMS_ITS | Encounter Summary ---
Author Organization [facility] Address [address] [place] [address] Phone Care Team Providers Care Barrel Polisher Inside Name Role Phone Marily Elkins HEAD NECK SURGEON Unavailable [phone] Iris Chamberlain MD Unavailable Gilma Cornelius DO Unavailable [phone] Erlin Pennington MD Unavailable [phone] Miriam Valladares MD Unavailable [phone] Artie Mayorga CNP Unavailable [phone] Erlin Pennington MD Primary Care Provider [phone] Reason for Referral * MRI/CAT Scan - Closed Specialty Diagnoses / Procedures Referred By Contac t Referred To Contact Radiology Diagnoses Idiopathic chronic pancreatitis Procedures MRI Cholangiopancreatography (MRCP) Manjinder Staples MD Phone: tel: fax: [email or web address]:[email or web address] Referral ID Status Reason Start Date Expiration Date Visits Re quested Visits Authorized [id number] Closed 02/04/2020 08/02/2020 1 1 Encounter Details Date Type Department Care Team (Latest Contact Info) Description 02/05/[address] [facility] Department [address] [place] [address] Manjinder Staples MD [address] [place] [address] [email or web address] Idiopathic chronic pancreatitis (Primary [...] vessel. No other pathology is apparent. POS [id number] Narrative 02/19/2020 9:43 AM EDT TECHNIQUE: 1.5 [...] vessel. No other pathology is apparent. POS [id number] Manjinder Staples MD IMG MR ABDOMEN Final [...] documented as of this encounter Care Teams Barrel Polisher Inside Relationship Specialty Start Date End Date Erlin Pennington MD [address] [place] [address], [address] [place] [address] PCP - General 03/05/17 09/24/24 Marily Elkins NP [address] [place] [address] Historical LMR Provider 03/04/17 05/27/21 Iris Chamberlain MD [address] [facility], [address] [place] [address] Historical LMR Provider 03/04/17 05/27/21 Gilma Cornelius DO [address] [place] [address] Historical LMR Provider 03/04/17 2 Erlin Pennington MD [address] [place] [address], [address] [place] [address] Historical LMR Provider 03/04/17 5 Miriam Valladares MD [address] [place] [address] Historical LMR Provider 03/04/17 2 Artie Mayorga CNP [address] [facility], [address] [place] [address] Historical LMR Provider 03/04/17 documented as of this encounter Additional Source Comments The information contained in this document represents components of the legal health record. It is not the complete legal health record.[facility]
--- OUTSIDE RECORDS SUMMARY | 2025-05-17 09:09 | XMS_ITS | Encounter Summary ---
Author Organization [facility] Address [facility] [employer] [address] [address] Phone Care Team Providers Care Supervisor Policy Change Clerks Name Role Phone Marily Elkins MINER HELPER Unavailable [phone] Iris Chamberlain MD Unavailable Gilma Cornelius DO Unavailable [phone] Erlin Pennington MD Unavailable [phone] Miriam Valladares MD Unavailable [phone] Artie Mayorga CNP Unavailable Erlin Pennington MD Primary Care Provider [phone] Encounter Details Date Type Department Care Team (Late st Contact Info) Description 02/05/2020 Procedure Pass [facility], [address] [address] Social History Tobacco Use Types Packs/Day Years [...] documented as of this encounter Care Teams Supervisor Policy Change Clerks Relationship Specialty Start Date End Date Erlin Pennington MD [address] [place] [address] PCP - General 03/05/17 09/24/24 Marily Elkins, RONI [address] [place] [address] Historical LMR Provider 03/04/17 05/27/21 Iris Chamberlain MD [address] [place] [address], [facility] [address] [place] [address] Historical LMR Provider 03/04/17 05/27/21 Gilma Cornelius DO [address] [place] [address] Historical LMR Provider 03/04/17 2 Erlin Pennington MD [address] [place] [address] Historical LMR Provider 03/04/17 5 Miriam Valladares MD [address] [place] [address] Historical LMR Provider 03/04/17 2 Artie Mayorga CNP [address] [facility], [address] [place] [address] [email or web address] Historical LMR Provider 03/04/17 documented as of this encounter Additional Source Comments The information contained in this document represents components of the legal health record. It is not the complete legal health record.[facility]
--- OUTSIDE RECORDS SUMMARY | 2025-05-17 09:09 | XMS_ITS | Clinical Summary ---
Author Organization [facility] Address [address] [place] [address] Phone Care Team Providers Care Lens Grinder Rough Name Role Phone TiffanyManuelajim Brown WAREHOUSE FORKLIFT OPERATOR Primary Care Provider Social History Tobacco Use [...] patient's age to complete this topic Insurance [place] [facility] Care Teams Lens Grinder Rough Relationship Specialty Start Date End Date Daria Allen FNP [address] [place] [phone] PCP - General Internal Medicine 11/24/24
--- OUTSIDE RECORDS SUMMARY | 2025-05-17 09:09 | XMS_ITS | Encounter Summary ---
Author Organization [facility] Address [facility] [employer] [address] [address] Phone Care Team Providers Care Network Programmer Name Role Phone Marily Elkins ANIMAL MAINTENANCE SUPERVISOR Unavailable [phone] Iris Chamberlain MD Unavailable Gilma Cornelius DO Unavailable [phone] Erlin Pennington MD Unavailable [phone] Miriam Valladares MD Unavailable [phone] Artie Mayorga PROTOTYPE MACHINIST Unavailable [phone] Erlin Pennington MD Primary Care Provider Encounter Details Date Type Department Care Team (Latest Contact Info) Description 01/28/2020 Transcribe Orders [facility] Phleb [place] [address] 2[address] Floor [place], [place] [id number] Manjinder Staples MD [address] [address] [email or web address] Chronic [...] REACTIVE PROTEIN <0.3 0.0 - 4.0 mg/L [facility] Blood 01/28/2020 2:03 PM EDT 01/28/2020 2:07 PM EDT us Manjinder Staples MD LAB BLOOD BKR ORDERABLES Fin al Result Performing Organization Address City/State/[facility] Co de Phone Number [address] [address] * Comprehensive metabolic panel (01/28/2020 2:03 PM EDT) SODIUM 138 133 - 146 mmol/L [facility] POTASSIUM 4.3 3.3 - 5.1 mmol/L [facility] CHLORIDE 104 96 - 108 mmol/L [facility] CO2 24 21 - 35 mmol/L [facility] BUN 13 6 - 19 mg/dL [facility] CREATININE 0.70 0.5 - 1.5 mg/dL [facility] GLUCOSE 95 70 - 99 mg/dL [facility] ALBUMIN 4.3 3.9 - 4.8 g/dL [facility] TOTAL PROTEIN 7.1 6.5 - 8.0 g/dL [facility] CALCIUM 9.3 8.4 - 10.3 mg/dL [facility] ALKALINE PHOSPHATASE 50 39 - 117 U/L [facility] TOTAL BILIRUBIN 0.3 0.0 - 1.2 mg/dL [facility] AST 29 0 - 37 U/L [facility] ALT 13 0 - 40 U/L [facility] GLOBULIN 2.8 1 - 4.8 g/dL [facility] EGFR 111 >59 mL/min/1.7 3m2 [facility] Comment:Estimated glomerular filtration rate calculated using the CKD-EPI equation. ANION GAP 14 10 - 20 mmol/L [facility] Blood 01/28/2020 2:03 PM EDT 01/28/2020 2:07 PM EDT us Manjinder Staples MD LAB BLOOD BKR ORDERABLES Fin al Result Performing Organization Address City/[facility]/ZIP Co de Phone Number [address] [address] * CBC (01/28/2020 2:03 PM EDT) WBC 5.52 4.00 - 11.00 K/uL [facility] Comment:Note Reference Range updates to all CBC and Differential results. RBC 4.67 3.72 - 5.30 M/uL [facility] HGB 14.9 10.6 - 15.5 g/dL [facility] Comment:Note updated Referen ce Ranges for all CBC and Differential results. HCT 44.2 32.0 - 45.0 % [facility] PLT 252 140 - 430 K/uL [facility] MCV 94.6 78.0 - 97.0 fL [facility] MCH 31.9 25.0 - 33.0 pg [facility] MCHC 33.7 32.0 - 36.0 g/dL [facility] RDW 12.3 11.0 - 16.0 % [facility] MPV 10.6 8.4 - 12.8 fl [facility] NRBC 0.00 0 /100 WBCs [facility] ABSOLUTE NRBC 0.00 0 K/uL [facility] Blood 01/28/2020 2:03 PM EDT 01/28/2020 2:07 PM EDT us Manjinder Staples MD LAB BLOOD BKR ORDERABLES Fin al Result [address] [address] * Lipase (01/28/2020 2:03 PM EDT) LIPASE 57 16 - 63 U/L [facility] Blood 01/28/2020 2:03 PM EDT 01/28/2020 2:07 PM EDT us Manjinder Staples MD LAB BLOOD BKR ORDERABLES Fin al Result [address] [address] * (ABNORMAL) Amylase (01/28/2020 2:03 PM EDT) AMYLASE 104(H) 28 - 100 U/L [facility] Blood 01/28/2020 2:03 PM EDT 01/28/2020 2:07 PM EDT us Manjinder Staples MD LAB BLOOD BKR ORDERABLES Fin al Result Performing Organization Address [facility] Co de Phone Number [address] [address] documented in this encounter Visit Diagnoses Diagnosis [...] documented as of this encounter Care Teams Network Programmer Relationship Specialty Start Date End Date Erlin Pennington MD [address] [place] [address], [address] [place] [address] PCP - General 03/05/17 09/24/24 Marily Elkins NP [address] [place] [address] Historical LMR Provider 03/04/17 05/27/21 Iris Chamberlain MD [address] [place] [address], [address] [place] [address] Historical LMR Provider 03/04/17 05/27/21 Gilma Cornelius DO [address] [place] [address] Historical LMR Provider 03/04/17 2 Erlin Pennington MD [address] [place] [address], [address] [place] [address] [email or web address] Historical LMR Provider 03/04/17 5 Miriam Valladares MD [address] [place] [address] Historical LMR Provider 03/04/17 2 Artie Mayorga CNP [address] [place] [address], [address] [place] [address] [email or web address] Historical LMR Provider 03/04/17 documented as of this encounter Additional Source Comments The information contained in this document represents components of the legal health record. It is not the complete legal health record.[facility]
--- OUTSIDE RECORDS SUMMARY | 2025-05-17 09:09 | XMS_ITS | Encounter Summary ---
Author Organization [facility] Address [facility] [employer] [address] [address] Phone Care Team Providers Care Folder Inspector Name Role Phone Marily Elkins [employer] WEDGER Unavailable [phone] Iris Chamberlain MD Unavailable Gilma Cornelius DO Unavailable [phone] Erlin Pennington MD Unavailable [phone] Miriam Valladares MD Unavailable [phone] Artie Mayorga CNP Unavailable Erlin Pennington MD Primary Care Provider Encounter Details Date Type Department Care Team (Latest Contact Info) Description 12/20/2017 Transcribe Orders [facility] Phleb [address] [address] Leydi Durham PA [address] [place] [id number] Diagnosis unknown (Primary Dx) Social History Tobacco [...] LIPASE 60 16 - 63 U/L [facility] Blood 12/20/2017 5:11 PM EDT 12/20/2017 5:14 PM EDT us Leydi TERRY LAB BLOOD BKR ORDERABLES Fi nal Result Performing Organization Address City/[facility]/ZIP Co de Phone Number [address] [address] * Comprehensive metabolic panel (12/20/2017 5:11 PM EDT) SODIUM 139 133 - 146 mmol/L [facility] POTASSIUM 3.8 3.3 - 5.1 mmol/L [facility] CHLORIDE 102 96 - 108 mmol/L [facility] CO2 24 21 - 35 mmol/L [facility] BUN 16 6 - 19 mg/dL [facility] CREATININE 0.90 0.5 - 1.5 mg/dL [facility] GLUCOSE 87 70 - 99 mg/dL [facility] ALBUMIN 4.2 3.9 - 4.8 g/dL [facility] TOTAL PROTEIN 7.1 6.5 - 8.0 g/dL [facility] CALCIUM 8.5 8.4 - 10.3 mg/dL [facility] ALKALINE PHOSPHATASE 51 39 - 117 U/L [facility] TOTAL BILIRUBIN 0.3 0.0 - 1.2 mg/dL [facility] AST 17 0 - 37 U/L [facility] ALT 12 0 - 40 U/L [facility] GLOBULIN 2.9 1 - 4.8 g/dL [facility] EGFR 83 >59 mL/min/1.7 3m2 [facility] Comment:If patient is black, multiply result by 1.159. Estimated glomerular filtration rate calculated using the CKD-EPI equation. ANION GAP 17 10 - 20 mmol/L [facility] Blood 12/20/2017 5:11 PM EDT 12/20/2017 5:14 PM EDT us Leydi TERRY LAB BLOOD BKR ORDERABLES Fi nal Result [facility] [address] [place] [address] * (ABNORMAL) CBC and differential (12/20/2017 5:11 PM EDT) WBC 6.62 3.40 - 11.20 K/uL [facility] RBC 4.36 3.80 - 4.80 M/uL [facility] HGB 14.3 12.0 - 15.0 g/dL [facility] HCT 40.6 36.0 - 46.0 % [facility] PLT 252 130 - 400 K/uL [facility] MCV 93.1 79.0 - 98.0 fL [facility] MCH 32.8 27.0 - 34.8 pg [facility] MCHC 35.2 31.5 - 36.0 g/dL [facility] RDW 12.2 10.8 - 14.6 % [facility] MPV 10.5 9.4 - 12.4 fl [facility] NRBC 0.00 /100 WBCs [facility] ABSOLUTE NRBC 0.00 K/uL [facility] DIFF METHOD Auto [facility] NEUTS 47.5 45.30 - 77.70 % [facility] LYMPHS 42.7(H) 12.30 - 39.70 % [facility] MONOS 5.3 4.10 - 12.80 % [facility] EOS 3.2 0 - 7.2 % [facility] BASOS 1.1 0 - 2.80 % [facility] Granulocytes, immature (%) 0.2 0.0 - 0.9 % [facility] ABSOLUTE NEUTS 3.15 1.40 - 7.70 K/uL [facility] ABSOLUTE LYMPHS 2.83 0.60 - 3.20 K/uL [facility] ABSOLUTE MONOS 0.35 0.11 - 0.59 K/uL [facility] ABSOLUTE EOS 0.21 0.01 - 0.50 K/uL [facility] ABSOLUTE BASOS 0.07 0.00 - 0.08 K/uL [facility] Granulocytes, immature 0.01 0.00 - 0.05 K/uL [facility] Blood 12/20/2017 5:11 PM EDT 12/20/2017 5:14 PM EDT us Leydi TERRY LAB BLOOD BKR ORDERABLES Fi nal Result [address] [address] documented in this encounter Visit Diagnoses Diagnosis Diagnosis unknown- Primary documented in this encounter Additional Health Concerns Infection Onset Date Last Indicated Resolved Time CoV-Exposed Comment:Recent close contact 05/30/2020 05/30/2020 06/13/2020 1:24 AM EST CoV-Presumed 10/01/2021 10/01/2021 10/22/2021 1:21 AM EDT documented as of this encounter Care Teams Folder Inspector Relationship Specialty Start Date End Date Erlin Pennington MD [address] [place] [address] PCP - General 03/05/17 09/24/24 Marily Elkins NP [address] [place] [address] Historical LMR Provider 03/04/17 05/27/21 Iris Chamberlain MD [address] [place] [address], [address] [address] Historical LMR Provider 03/04/17 05/27/21 Gilma Cornelius DO [address] [place] [address] Historical LMR Provider 03/04/17 2 Erlin Pennington MD [address] [place] [address] Historical LMR Provider 03/04/17 5 Miriam Valladares MD 4 [place] [address] Historical LMR Provider 03/04/17 2 Artie Mayorga CNP [address] [place] [address], [address] [place] [address] [email or web address] Historical LMR Provider 03/04/17 documented as of this encounter Additional Source Comments The information contained in this document represents components of the legal health record. It is not the complete legal health record.[facility]
--- OUTSIDE RECORDS SUMMARY | 2025-05-17 09:09 | XMS_ITS | Encounter Summary ---
Author Organization [facility] Address [address] [address] Phone Care Team Providers Care Payroll Auditor Name Role Phone Marily Elkins CASHIER RECEPTIONIST Unavailable [phone] Iris Chamberlain MD Unavailable Gilma Cornelius DO Unavailable Erlin Pennington MD Unavailable [phone] Miriam Valladares MD Unavailable [phone] Artie Mayorga CNP Unavailable Erlin Pennington MD Primary Care Provider [phone] Encounter Details Date Type Department Care Team (Latest Contact Info) Description 04/21/2018 Ancillary Orders Virtual Department [address] [place] [address] Gokul Stevens MD [address] [place] [address] [email or web address] Chronic pancreatitis, unspecified pancreatitis type Social History [...] right lobe of the liver. POS - [id number] Narrative 05/14/2018 12:10 PM EST US ABDOMEN [...] right lobe of the liver. POS - [id number] us Gokul Stevens MD IMG US ABDOMEN [...] documented as of this encounter Care Teams Payroll Auditor Relationship Specialty Start Date End Date Erlin Pennington MD [address] [place] [address], [address] [place] [address] PCP - General 03/05/17 09/24/24 Marily Elkins NP [address] [place] [address] Historical LMR Provider 03/04/17 05/27/21 Iris Chamberlain MD [address] [place] [address], [address] [place] [address] Historical LMR Provider 03/04/17 05/27/21 Gilma Cornelius DO 30 [place] [address] Historical LMR Provider 03/04/17 2 Erlin Pennington MD 22 [facility], [address] [place] [address] Historical LMR Provider 03/04/17 5 Miriam Valladares MD [address] [place] [address] Historical LMR Provider 03/04/17 2 Artie Mayorga CNP 22 [facility], [address] [place] [address] [email or web address] Historical LMR Provider 03/04/17 documented as of this encounter Additional Source Comments The information contained in this document represents components of the legal health record. It is not the complete legal health record.[facility]
--- OUTSIDE RECORDS SUMMARY | 2025-05-17 09:09 | XMS_ITS | Patient Health Record ---
Author Organization [employer] [facility] Address [address] [place] [address] [address] [place] [address] Care Team Providers Care Tile Installer Name Role Phone VALERY MOREAU CNP Primary Care Provider TALISHA Mckenzie Unavailable [phone] Allergies Allergen (clinical drug ingredient) Drug/Non Drug [...] Status W/U Status Risk Notes Problem COVID-19 ([id number]) COVID-19 (U07.1) Active confirmed Vital Signs Temperature 98.0 degrees Fahrenheit 10/09/2024 Blood pressure diastolic 74 mm Hg 10/09/2024 Height 64 in 10/09/2024 Blood pressure systolic 110 mm Hg 10/09/2024 Weight 169 lbs 10/09/2024 BMI 29.01 kg/m2 10/09/2024 Encounters Encounter Location Date Provider Diagnosis [facility] [address] [place] [address] 06/12/2024 TALISHA SEGURAS Nonspecific low blood-pressure reading R03.1 Total [facility] [address] [facility] [address] [place] [address] 10/09/2024 TALISHA OKEEFE Encounter for gynecological examination (general) (routine) without abnormal findings Z01.419 ; Encounter for screening mammogram for malignant neoplasm of breast Z12.31 and Presence of (intrauterine) contraceptive device Z97.5 [facility] [address] [place] [address] 06/11/2024 TALISHA OKEEFE Assessments Encounter Date Diagnosis [...] Provider Name:TALISHA Dodson, 10/15/2025 03:00:00 PM, [address], [address], [place], [address], Insurance Providers Payer Name Payer Address Payer Phone Subscriber Number Group Number Insured Name Patient Relationship to Insured Coverage Start Date Coverage End Date [employer] [place] [address] [address] [place] [address] [id number] KUMAR GONSALVES Self - patient is the insured 3 Medical (General) History Medical History History ICD Code COVID-19 U07.1 Surgical History Surgery Date(Month/Year) [place] teeth extraction 2006 Hospitalization History Reason Date(Month/Year) Childbirth
--- OUTSIDE RECORDS SUMMARY | 2025-05-17 09:10 | XMS_ITS | Encounter Summary ---
Author Organization [facility] Address [facility] [employer] [address] [address] Phone Care Team Providers Care Therapeutic Program Worker Name Role Phone Marily Elkins FIXTURE BUILDER Unavailable [phone] Iris Chamberlain MD Unavailable Gilma Cornelius DO Unavailable [phone] Erlin Pennington MD Unavailable [phone] Miriam Valladares MD Unavailable [phone] Artie Mayorga CNP Unavailable Erlin Pennington MD Primary Care Provider Encounter Details Date Type Department Care Team (Latest Contact Info) Description 09/24/2018 Transcribe Orders [facility] Specimen Processing 30 [place] [address] Rashmi Gordon PA-C [address] [place] [address] [email or web address] Acute pancreatitis, unspecified complication status, unspecified [...] Pancreatic Elastase, Stool (09/24/2018 6:52 PM EDT) [facility] ST PANCREA ELASTASE 480 mcg/g [facility] Comment: (NOTE) Adult and Pediatric Reference Ranges for Pancreatic Elastase-1: Normal: >200 mcg/g Moderate Pancreatic Insufficiency: 100-200 mcg/g Severe Pancreatic Insufficiency: <100 mcg/g Elastase-1 (E-1) assay results are expressed in mcg/g, which represent mcg E1/g feces. It is not necessary to interrupt enzyme substitution therapy. Test Performed by: [employer] [place] [address] [place] [address] Stool (Stool) 09/24/2018 6:5 2 PM EDT 09/24/2018 6:54 PM EDT Rashmi Gordon PA-C BODY FLUIDS AND STOOLS ORDERABL ES Final Result [facility] documented in this encounter Visit Diagnoses Diagnosis Acute pancreatitis, unspecified complication status, unspecified pancreatitis type- Primary documented in this encounter Additional Health Concerns Infection Onset Date Last Indicated Resolved Time CoV-Exposed Comment:Recent close contact 05/30/2020 05/30/2020 06/13/2020 1:24 AM EST CoV-Presumed 10/01/2021 10/01/2021 10/22/2021 1:21 AM EDT documented as of this encounter Care Teams Therapeutic Program Worker Relationship Specialty Start Date End Date Erlin Pennington MD [address] [place] [address], [address] [place] [address] PCP - General 03/05/17 09/24/24 Marily Elkins NP 30 [place] [address] Historical LMR Provider 03/04/17 05/27/21 Iris Chamberlain MD [address] [facility], [address] [place] [address] Historical LMR Provider 03/04/17 05/27/21 Gilma Cornelius DO [address] [place] [address] Historical LMR Provider 03/04/17 2 Erlin Pennington MD [address] [place] [address], [address] [place] [address] [email or web address] Historical LMR Provider 03/04/17 5 Miriam Valladares MD [address] [place] [address] Historical LMR Provider 03/04/17 2 Artie Mayorga CNP [address] [place] [address], [address] [place] [address] [email or web address] Historical LMR Provider 03/04/17 documented as of this encounter Additional Source Comments The information contained in this document represents components of the legal health record. It is not the complete legal health record.[facility]
--- OUTSIDE RECORDS SUMMARY | 2025-05-17 09:10 | XMS_ITS | Encounter Summary ---
Author Organization [facility] Address [facility] [email or web address] [address] [address] Phone Care Team Providers Care Inside Sales Associate Name Role Phone Marily Elkins CANDLEMAKING LABORER Unavailable [phone] Iris Chamberlain MD Unavailable Gilma Cornelius DO Unavailable [phone] Erlin Pennington MD Unavailable [phone] Miriam Valladares MD Unavailable [phone] Artie Mayorga TROPHY ASSEMBLER Unavailable Erlin Pennington MD Primary Care Provider Encounter Details Date Type Department Care Team (Latest Contact Info) Description 07/23/2019 Transcribe Orders [facility] Phleb Catar[place] [address] [id number] Leydi Durham PA 10 [place] [address] Acute pancreatitis, unspecified complication status, unspecified pancreatitis [...] EST) WBC 8.02 4.00 - 11.00 K/uL [facility] Comment:Note Reference Range updates to all CBC and Differential results. RBC 4.64 3.72 - 5.30 M/uL [facility] HGB 14.8 10.6 - 15.5 g/dL [facility] Comment:Note updated Referen ce Ranges for all CBC and Differential results. HCT 43.3 32.0 - 45.0 % [facility] PLT 248 140 - 430 K/uL [facility] MCV 93.3 78.0 - 97.0 fL [facility] MCH 31.9 25.0 - 33.0 pg [facility] MCHC 34.2 32.0 - 36.0 g/dL [facility] RDW 12.6 11.0 - 16.0 % [facility] MPV 10.5 8.4 - 12.8 [facility] NRBC 0.00 0 /100 WBCs [facility] ABSOLUTE NRBC 0.00 0 K/uL [facility] Blood 07/23/2019 11:5 6 AM EST 07/23/2019 12:01 PM EST us Leydi TERRY LAB BLOOD BKR ORDERABLES Fi nal Result [address] [address] * (ABNORMAL) IgG subclasses (07/23/2019 11:56 AM EST) IGG 1 509 341 - 894 mg/dL [facility] MED/PATH [address] IGG 2 598 171 - 632 mg/dl [facility] [address] IGG 3 88.3 18.4 - 106.0 mg/dl [facility]PATH [address] IGG 4 212.0(H) 2.4 - 121.0 mg/dl [facility]PATH [address] TOTAL IGG 1,360 917 - 1,590 mg/dl [facility] [address] Blood 07/23/2019 11:5 6 AM EST 07/23/2019 12:01 PM EST us Leydi TERRY LAB BLOOD ORDERABLES Final Result Performing Organization Address City/[facility]/ZIP Co de Phone Number [facility] LAB MED/[address] [place] [address] * Lipase (07/23/2019 11:56 AM EST) LIPASE 47 16 - 63 U/L [facility] Blood 07/23/2019 11:5 6 AM EST 07/23/2019 12:01 PM EST us Leydi TERRY LAB BLOOD BKR ORDERABLES Fi nal Result Performing Organization Address [facility] de Phone Number [address] [address] documented in this encounter Visit Diagnoses Diagnosis [...] documented as of this encounter Care Teams Inside Sales Associate Relationship Specialty Start Date End Date Erlin Pennington MD [address] [place] [address], [address] [place] [address] [email or web address] PCP - General 03/05/17 09/24/24 Marily Elkins NP [address] [place] [address] Historical LMR Provider 03/04/17 05/27/21 Iris Chamberlain MD [address] [facility], [address] [place] [address] Historical LMR Provider 03/04/17 05/27/21 Gilma Cornelius DO [address] [place] [address] Historical LMR Provider 03/04/17 2 Erlin Pennington MD [address] [place] [address], [address] [place] [address] [email or web address] Historical LMR Provider 03/04/17 5 Miriam Valladares MD [address] [place] [address] Historical LMR Provider 03/04/17 2 Artie Mayorga CNP [address] [place] [address], [address] [place] [address] [email or web address] Historical LMR Provider 03/04/17 documented as of this encounter Additional Source Comments The information contained in this document represents components of the legal health record. It is not the complete legal health record.[facility]
== END 2025-05-17 08:57 | disposition home or self-care (01) ==
LOC: HO.MRI 08:56
PROVIDERS: PCP Nurse Practitioner Family; Visit Provider Nurse Practitioner Family
DX: R76.89 Other specified abnormal immunological findings in serum (principal); D18.09 Hemangioma of other sites
CPT/HCPCS: 72158; A9585

== ENCOUNTER 2025-05-18 09:10 | Outpatient (REF) | payer OTHER, SELFPAY ==
--- NOTE | 2025-05-18 09:14 | EMG_ITS ---
Chief complaint: Pain in legs and feet Referred by: PARAG Delgadillo Procedure done: NCS and EMG of bilateral lower extremities Bilateral peroneal and tibial motor studies were performed with F responses and tibial H reflexes. Bilateral superficial peroneal and sural sensory studies were performed and median and lateral mixed plantars sensory studies were performed and needle examination was performed. Findings: Peroneal motor studies did not reveal any significant abnormality. Tibial motor distal latencies were mildly prolonged. Superficial peroneal amplitudes were slightly diminished. Sensory amplitude and feet were somewhat diminished. Impression: Mild mostly sensory axonal neuropathy [place] [id number] x2 [facility]
--- OUTSIDE RECORDS SUMMARY | 2025-05-18 11:32 | XMS_ITS | Encounter Summary ---
Author Organization [facility] Address [facility] [address] [address] Phone Care Team Providers Care Manager Agricultural Name Role Phone Marily Elkins ACCREDITED PHARMACY TECHNICIAN Unavailable [phone] Iris Chamberlain MD Unavailable Gilma Cornelius DO Unavailable [phone] Erlin Pennington MD Unavailable [phone] Miriam Valladares MD Unavailable [phone] Artie Mayorga CNP Unavailable Erlin Pennington MD Primary Care Provider Encounter Details Date Type Department Care Team (Latest Contact Info) Description 12/20/2017 Transcribe Orders [facility] [address] [address] Leydi Durham PA [address] [place] [address] [id number] Diagnosis unknown (Primary Dx) Social History Tobacco [...] EDT) LIPASE 60 16 - 63 U/L [facility] Blood 12/20/2017 5:11 PM EDT 12/20/2017 5:14 PM EDT us Leydi TERRY LAB BLOOD BKR ORDERABLES Fi nal Result Performing Organization Address City/[facility]/ZIP Co de Phone Number [address] [address] * Comprehensive metabolic panel (12/20/2017 5:11 PM EDT) SODIUM 139 133 - 146 mmol/L [facility] POTASSIUM 3.8 3.3 - 5.1 mmol/L [facility] CHLORIDE 102 96 - 108 mmol/L [facility] CO2 24 21 - 35 mmol/L [facility] BUN 16 6 - 19 mg/dL [facility] CREATININE 0.90 0.5 - 1.5 mg/dL [facility] GLUCOSE 87 70 - 99 mg/dL [facility] ALBUMIN 4.2 3.9 - 4.8 g/dL [facility] TOTAL PROTEIN 7.1 6.5 - 8.0 g/dL [facility] CALCIUM 8.5 8.4 - 10.3 mg/dL [facility] ALKALINE PHOSPHATASE 51 39 - 117 U/L [facility] TOTAL BILIRUBIN 0.3 0.0 - 1.2 mg/dL [facility] AST 17 0 - 37 U/L [facility] ALT 12 0 - 40 U/L [facility] GLOBULIN 2.9 1 - 4.8 g/dL [facility] EGFR 83 >59 mL/min/1.7 3m2 [facility] Comment:If patient is black, multiply result by 1.159. Estimated glomerular filtration rate calculated using the CKD-EPI equation. ANION GAP 17 10 - 20 mmol/L [facility] Blood 12/20/2017 5:11 PM EDT 12/20/2017 5:14 PM EDT us Leydi TERRY LAB BLOOD BKR ORDERABLES Fi nal Result [facility] [address] [place] [address] * (ABNORMAL) CBC and differential (12/20/2017 5:11 PM EDT) WBC 6.62 3.40 - 11.20 K/uL [facility] RBC 4.36 3.80 - 4.80 M/uL [facility] HGB 14.3 12.0 - 15.0 g/dL [facility] HCT 40.6 36.0 - 46.0 % [facility] PLT 252 130 - 400 K/uL [facility] MCV 93.1 79.0 - 98.0 fL [facility] MCH 32.8 27.0 - 34.8 pg [facility] MCHC 35.2 31.5 - 36.0 g/dL [facility] RDW 12.2 10.8 - 14.6 % [facility] MPV 10.5 9.4 - 12.4 fl [facility] NRBC 0.00 /100 WBCs [facility] ABSOLUTE NRBC 0.00 K/uL [facility] DIFF METHOD Auto [facility] NEUTS 47.5 45.30 - 77.70 % [facility] LYMPHS 42.7(H) 12.30 - 39.70 % [facility] MONOS 5.3 4.10 - 12.80 % [facility] EOS 3.2 0 - 7.2 % [facility] BASOS 1.1 0 - 2.80 % [facility] Granulocytes, immature (%) 0.2 0.0 - 0.9 % [facility] ABSOLUTE NEUTS 3.15 1.40 - 7.70 K/uL [facility] ABSOLUTE LYMPHS 2.83 0.60 - 3.20 K/uL [facility] ABSOLUTE MONOS 0.35 0.11 - 0.59 K/uL [facility] ABSOLUTE EOS 0.21 0.01 - 0.50 K/uL [facility] ABSOLUTE BASOS 0.07 0.00 - 0.08 K/uL [facility] Granulocytes, immature 0.01 0.00 - 0.05 K/uL [facility] Blood 12/20/2017 5:11 PM EDT 12/20/2017 5:14 PM EDT us Leydi TERRY LAB BLOOD BKR ORDERABLES Fi nal Result [address] [address] documented in this encounter Visit Diagnoses Diagnosis Diagnosis unknown- Primary documented in this encounter Additional Health Concerns Infection Onset Date Last Indicated Resolved Time CoV-Exposed Comment:Recent close contact 05/30/2020 05/30/2020 06/13/2020 1:24 AM EST CoV-Presumed 10/01/2021 10/01/2021 10/22/2021 1:21 AM EDT documented as of this encounter Care Teams Manager Agricultural Relationship Specialty Start Date End Date Erlin Pennington MD [address] [place] [address] PCP - General 03/05/17 09/24/24 Marily Elkins NP [address] [place] [address] Historical LMR Provider 03/04/17 05/27/21 Iris Chamberlain MD [address] [place] [address], [address] [address] Historical LMR Provider 03/04/17 05/27/21 Gilma Cornelius DO [address] [place] [address] Historical LMR Provider 03/04/17 2 Erlin Pennington MD [address] [place] [address] Historical LMR Provider 03/04/17 5 Miriam Valladares MD [address] [place] [address] Historical LMR Provider 03/04/17 2 Artie Mayorga CNP [address] [place] [address], [address] [place] [address] [email or web address] Historical LMR Provider 03/04/17 documented as of this encounter Additional Source Comments The information contained in this document represents components of the legal health record. It is not the complete legal health record.[facility]
--- OUTSIDE RECORDS SUMMARY | 2025-05-18 11:32 | XMS_ITS | Encounter Summary ---
Author Organization [facility] Address [address] [address] Phone Care Team Providers Care Any Commodity Buyer Name Role Phone Marily Elkins FOOD HANDLER Unavailable [phone] Iris Chamberlain MD Unavailable Gilma Cornelius DO Unavailable Erlin Pennington MD Unavailable [phone] Miriam Valladares MD Unavailable [phone] Artie Mayorga CNP Unavailable Erlin Pennington MD Primary Care Provider Encounter Details Date Type Department Care Team (Latest Contact Info) Description 04/21/2018 Ancillary Orders Virtual Department [address] [place] [address] Gokul Stevens MD [address] [place] [address] [email or web address] Chronic pancreatitis, unspecified pancreatitis type Social History [...] right lobe of the liver. POS - [id number] Narrative 05/14/2018 12:10 PM EST US ABDOMEN [...] right lobe of the liver. POS - [id number] us Gokul Stevens MD IMG US ABDOMEN [...] documented as of this encounter Care Teams Any Commodity Buyer Relationship Specialty Start Date End Date Erlin Pennington MD [address] [place] [address], [address] [place] [address] PCP - General 03/05/17 09/24/24 Marily Elkins NP [address] [place] [address] Historical LMR Provider 03/04/17 05/27/21 Iris Chamberlain MD [address] [place] [address], [address] [place] [address] Historical LMR Provider 03/04/17 05/27/21 Gilma Cornelius DO [address] [place] [address] Historical LMR Provider 03/04/17 2 Erlin Pennington MD [address] [facility], [address] [place] [address] Historical LMR Provider 03/04/17 5 Miriam Valladares MD [address] [place] [address] Historical LMR Provider 03/04/17 2 Artie Mayorga CNP [address] [facility] [place] [address] [email or web address] Historical LMR Provider 03/04/17 documented as of this encounter Additional Source Comments The information contained in this document represents components of the legal health record. It is not the complete legal health record.[facility]
--- OUTSIDE RECORDS SUMMARY | 2025-05-18 11:32 | XMS_ITS | Encounter Summary ---
Author Organization [facility] Address [facility] [employer] [address] [address] Phone Care Team Providers Care Flower Buncher Or Picker Name Role Phone Marily Elkins BLOCK SAW OPERATOR Unavailable [phone] Iris Chamberlain MD Unavailable Gilma Cornelius DO Unavailable [phone] Erlin Pennington MD Unavailable [phone] Miriam Valladares MD Unavailable [phone] Artie Mayorga CNP Unavailable Erlin Pennington MD Primary Care Provider [phone] Encounter Details Date Type Department Care Team (Late st Contact Info) Description 02/05/2020 Procedure Pass [facility], [address] [address] Social History Tobacco Use Types Packs/Day Years [...] documented as of this encounter Care Teams Flower Buncher Or Picker Relationship Specialty Start Date End Date Erlin Pennington MD [address] [place] [address] PCP - General 03/05/17 09/24/24 Marily Elkins, RONI [address] [place] [address] Historical LMR Provider 03/04/17 05/27/21 Iris Chamberlain MD [address] [place] [address], [facility] [address] [place] [address] Historical LMR Provider 03/04/17 05/27/21 Gilma Cornelius DO [address] [place] [address] Historical LMR Provider 03/04/17 2 Erlin Pennington MD [address] [place] [address] Historical LMR Provider 03/04/17 5 Miriam Valladares MD [address] [place] [address] Historical LMR Provider 03/04/17 2 Artie Mayorga CNP [address] [facility], [address] [place] [address] [email or web address] Historical LMR Provider 03/04/17 documented as of this encounter Additional Source Comments The information contained in this document represents components of the legal health record. It is not the complete legal health record.[facility]
--- OUTSIDE RECORDS SUMMARY | 2025-05-18 11:32 | XMS_ITS | Encounter Summary ---
Author Organization [facility] Address [address] [address] Phone Care Team Providers Care Branch Office Administrator Name Role Phone Marily Elkins HUMAN RESOURCE INTERN Unavailable [phone] Iris Chamberlain MD Unavailable Gilma Cornelius DO Unavailable [phone] Erlin Pennington MD Unavailable [phone] Miriam Valladares MD Unavailable [phone] rAtie Mayorga CNP Unavailable Erlin Pennington MD Primary Care Provider Encounter Details Date Type Department Care Team (Late st Contact Info) Description 04/21/2018 Ancillary Orders Virtual Department 30 [place] [address] Gokul Stevens MD [address] [place] [address] [email or web address] Social History Tobacco Use Types Packs/Day Years [...] documented as of this encounter Care Teams Branch Office Administrator Relationship Specialty Start Date End Date Erlin Pennington MD [address] [place] [address], [address] [place] [address] PCP - General 03/05/17 09/24/24 Marily Elkins NP [address] [place] [address] Historical LMR Provider 03/04/17 05/27/21 Iris Chamberlain MD [address] [place] [address], [address] [address] Historical LMR Provider 03/04/17 05/27/21 Gilma Cornelius DO [address] [place] [address] Historical LMR Provider 03/04/17 2 Erlin Pennington MD [address] [place] [address] Historical LMR Provider 03/04/17 5 Miriam Valladares MD [address] [place] [address] Historical LMR Provider 03/04/17 2 Artie Mayorga CNP [address] [place] [address], [address] [place] [address] [email or web address] Historical LMR Provider 03/04/17 documented as of this encounter Additional Source Comments The information contained in this document represents components of the legal health record. It is not the complete legal health record.[facility]
--- OUTSIDE RECORDS SUMMARY | 2025-05-18 11:33 | XMS_ITS | Clinical Summary ---
Author Organization [facility] Address [address] [place] [address] Phone Care Team Providers Care Special Effects Designer Name Role Phone TiffanyManuelajim Brown PUBLIC RELATIONS SENIOR ASSOCIATE Primary Care Provider Social History Tobacco Use [...] patient's age to complete this topic Insurance [place] [employer] [facility] Care Teams Special Effects Designer Relationship Specialty Start Date End Date Daria Allen FNP [address] [place] [address] PCP - General Internal Medicine 11/24/24
--- OUTSIDE RECORDS SUMMARY | 2025-05-18 11:33 | XMS_ITS | Patient Health Record ---
Author Organization [facility] Address [address] [place] [address] [address] [place] [address] Care Team Providers Care Civil Geotechnical Engineer Name Role Phone VALERY MOREAU CNP Primary Care Provider TALISHA Mckenzie Unavailable [phone] Allergies Allergen (clinical drug ingredient) Drug/Non Drug [...] Status W/U Status Risk Notes Problem COVID-19 ([id number]) COVID-19 (U07.1) Active confirmed Vital Signs Temperature 98.0 degrees Fahrenheit 10/09/2024 Blood pressure diastolic 74 mm Hg 10/09/2024 Height 64 in 10/09/2024 Blood pressure systolic 110 mm Hg 10/09/2024 Weight 169 lbs 10/09/2024 BMI 29.01 kg/m2 10/09/2024 Encounters Encounter Location Date Provider Diagnosis [facility] [address] [place] [address] 06/12/2024 TALISHA SEGURAS Nonspecific low blood-pressure reading R03.1 [facility] [address] [facility] [address] [place] [address] 10/09/2024 TALISHA OKEEFE Encounter for gynecological examination (general) (routine) without abnormal findings Z01.419 ; Encounter for screening mammogram for malignant neoplasm of breast Z12.31 and Presence of (intrauterine) contraceptive device Z97.5 [facility] [address] [place] [address] 06/11/2024 TALISHA OKEEFE Assessments Encounter Date Diagnosis [...] Provider Name:TALISHA Dodson, 10/15/2025 03:00:00 PM, [address], [address], [place], [address], Insurance Providers Payer Name Payer Address Payer Phone Subscriber Number Group Number Insured Name Patient Relationship to Insured Coverage Start Date Coverage End Date [employer] [place] [address] [address] [place] [address] [id number] KUMAR GONSALVES Self - patient is the insured 3 Medical (General) History Medical History History ICD Code COVID-19 U07.1 Surgical History Surgery Date(Month/Year) [place] teeth extraction 2006 Hospitalization History Reason Date(Month/Year) Childbirth
--- OUTSIDE RECORDS SUMMARY | 2025-05-18 11:33 | XMS_ITS | Encounter Summary ---
Author Organization [facility] Address [facility] [employer] [address] [address] Phone Care Team Providers Care Spring Coiling Machine Setter Name Role Phone Marily Elkins OPERATIONAL COMMUNICATION CHIEF Unavailable [phone] Iris Chamberlain MD Unavailable Gilma Cornelius DO Unavailable [phone] Erlin Pennington MD Unavailable [phone] Miriam Valladares MD Unavailable [phone] Artie Mayorga CNP Unavailable Erlin Pennington MD Primary Care Provider Encounter Details Date Type Department Care Team (Latest Contact Info) Description 09/24/2018 Transcribe Orders [facility] Specimen Processing [address] [place] [address] Rashmi Gordon PA-C [address], [address] [place] [address] [email or web address] Acute pancreatitis, unspecified complication status, unspecified pancreatitis [...] Pancreatic Elastase, Stool (09/24/2018 6:52 PM EDT) [facility] ST PANCREA ELASTASE 480 mcg/g [facility] Comment: (NOTE) Adult and Pediatric Reference Ranges for Pancreatic Elastase-1: Normal: >200 mcg/g Moderate Pancreatic Insufficiency: 100-200 mcg/g Severe Pancreatic Insufficiency: <100 mcg/g Elastase-1 (E-1) assay results are expressed in mcg/g, which represent mcg E1/g feces. It is not necessary to interrupt enzyme substitution therapy. Test Performed by: [facility] [address] [place] [address] Stool (Stool) 09/24/2018 6:5 2 PM EDT 09/24/2018 6:54 PM EDT Rashmi Gordon PA-C BODY FLUIDS AND STOOLS ORDERABL ES Final Result [facility] documented in this encounter Visit Diagnoses Diagnosis Acute pancreatitis, unspecified complication status, unspecified pancreatitis type- Primary documented in this encounter Additional Health Concerns Infection Onset Date Last Indicated Resolved Time CoV-Exposed Comment:Recent close contact 05/30/2020 05/30/2020 06/13/2020 1:24 AM EST CoV-Presumed 10/01/2021 10/01/2021 10/22/2021 1:21 AM EDT documented as of this encounter Care Teams Spring Coiling Machine Setter Relationship Specialty Start Date End Date Erlin Pennington MD [address] [place] [address], [address] [place] [address] PCP - General 03/05/17 09/24/24 Marily Elkins NP [address] [place] [address] Historical LMR Provider 03/04/17 05/27/21 Iris Chamberlain MD [address] [facility], [address] [place] [address] Historical LMR Provider 03/04/17 05/27/21 Gilma Cornelius DO [address] [place] [address] Historical LMR Provider 03/04/17 2 Erlin Pennington MD [address] [place] [address], [address] [place] [address] [email or web address] Historical LMR Provider 03/04/17 5 Miriam Valladares MD [address] [place] [address] Historical LMR Provider 03/04/17 2 Artie Mayorga CNP [address] [place] [address], [address] [place] [address] [email or web address] Historical LMR Provider 03/04/17 documented as of this encounter Additional Source Comments The information contained in this document represents components of the legal health record. It is not the complete legal health record.[facility]
--- OUTSIDE RECORDS SUMMARY | 2025-05-18 11:33 | XMS_ITS | Encounter Summary ---
Author Organization [facility] Address [address] [place] [address] Phone Care Team Providers Care Lumber Sorter Name Role Phone Marily Elkins RELAY RECORD CLERK Unavailable [phone] Iris Chamberlain MD Unavailable Gilma Cornelius DO Unavailable [phone] Erlin Pennington MD Unavailable [phone] Miriam Valladares MD Unavailable [phone] Artie Mayorga CNP Unavailable [phone] Erlin Pennington MD Primary Care Provider [phone] Reason for Referral * MRI/CAT Scan - Closed Specialty Diagnoses / Procedures Referred By Contac t Referred To Contact Radiology Diagnoses Idiopathic chronic pancreatitis Procedures MRI Cholangiopancreatography (MRCP) Manjinder Staples MD Phone: tel: fax: [email or web address] Referral ID Status Reason Start Date Expiration Date Visits Re quested Visits Authorized [id number] Closed 02/04/2020 08/02/2020 1 1 Encounter Details Date Type Department Care Team (Latest Contact Info) Description 02/05/2020 Transcribe Orders [facility] Department [address] [place] [address] Manjinder Staples MD [address] [place] [address] [email or web address] Idiopathic chronic pancreatitis (Primary Dx) Social History [...] vessel. No other pathology is apparent. POS [id number] Narrative 02/19/2020 9:43 AM EDT TECHNIQUE: 1.5 [...] vessel. No other pathology is apparent. POS [id number] Manjinder Staples MD IMG MR ABDOMEN Final [...] documented as of this encounter Care Teams Lumber Sorter Relationship Specialty Start Date End Date Erlin Pennington MD [address] [place] [address], [address] [place] [address] PCP - General 03/05/17 09/24/24 Marily Elkins NP [address] [place] [address] Historical LMR Provider 03/04/17 05/27/21 Iris Chamberlain MD [address] [facility], [address] [place] [address] Historical LMR Provider 03/04/17 05/27/21 Gilma Cornelius DO [address] [place] [address] Historical LMR Provider 03/04/17 2 Erlin Pennington MD [address] [place] [address], [address] [place] [address] Historical LMR Provider 03/04/17 5 Miriam Valladares MD [address] [place] [address] Historical LMR Provider 03/04/17 2 Artie Mayorga CNP [address] [facility], [address] [place] [address] Historical LMR Provider 03/04/17 documented as of this encounter Additional Source Comments The information contained in this document represents components of the legal health record. It is not the complete legal health record.[facility]
--- OUTSIDE RECORDS SUMMARY | 2025-05-18 11:33 | XMS_ITS | Clinical Summary ---
Author Organization [facility] Address [address] [address] Phone Care Team Providers Care Cv Rn Name Role Phone Unavailable Primary Care Provider Unavailabl e Allergies Active Allergy Reactions Criticality Noted Date Comments Bupropion Hcl Other (See Comments) Low 10/02/2016 Per pt report: [facility] Cat's Claw (Uncaria Tomentosa) Hives 10/02/2016 Codeine Phosphate GI Upset Low 10/02/2016 Erythromycin Hives 10/02/2016 Fluoxetine Other (See Comments) Low 10/02/2016 Per pt report: [facility] Sertraline Hcl Other (See Comments) Low 10/02/2016 Per pt report: [facility] Sulfamethoxazole-Trime thoprim Nausea and/or [...] (06/26/2019 10:04 AM EST): Previously evaluated at [facility] with EUS, reportedly normal. Recommend follow [...] this topic Medical Devices Implanted Type Area Pellet Press Operator Device Identifier Shelf Expiration Date Model / [...] SEE NARRATIVE - 05/31/2020 9:47 [place] [address] Stenotype Machine Operator: Ely Carver MD HISTOLOGIC AIDE Cytology Report FINAL DIAGNOSIS A. PAP SMEAR [...] 52, 56, 58, 59, 66, 68) by [employer] Onclarity HR-HPV analysis. Clinical correlation is advised. This HPV test was performed at [facility], [address] [place] [address]. This test has been FDA approved for SurePath cervical cytology specimens. The accuracy and precision of this test for all other specimen sources has been verified in the Cytopathology Laboratory of the [facility] and has not been cleared or approved by the U.S. Food and Drug Administration. Clinical correlation is advised. CLINICAL HISTORY Date of Last Menstrual Period: 05-22-2020 Contraceptive History: IUD Other Clinical Conditions: Screening Pap SPECIMEN SOURCE A: PAP SMEAR (SUREPATH) CE Patient Name: KUMAR MADSEN : 1985 (Age: 34) Sex: F Institution: [facility] Location: [facility] Date of Collection: 05/26/2020 Date of Reported: 05/30/2020 15:22 Results to: Anita Hope MD Anita Hope MD CYTOLOGY ORDERABLES Edited Re sult - Final SEE NARRATIVE from Last 3 Months or Most Recently Relevant to Health Maintenance [place] [address] [address] OUT [facility] PPO [facility] PPO [facility] OUT [facility] PPO [facility] PPO [facility] OUT OF [facility] PPO [facility] Advance Directives For more information, please contact: [phone] (9AM - 5PM [place], Saturday-Saturday) Documents on File Type Date Recorded Patient Bd Special Education Teacher [facility] Healthcare Proxy 10/21/2018 [facility] Care Proxy (10/15/18) Additional Source Comments The information contained in this document represents components of the legal health record. It is not the complete legal health record.[facility]
--- OUTSIDE RECORDS SUMMARY | 2025-05-18 11:33 | XMS_ITS | Encounter Summary ---
Author Organization [facility] Address [facility] [address] [address] Phone Care Team Providers Care Copper Tapper Name Role Phone Marily Elkins TRAVEL REGISTERED NURSE ONCOLOGY Unavailable [phone] Iris Chamberlain MD Unavailable Gilma Cornelius DO Unavailable [phone] Erlin Pennington MD Unavailable [phone] Miriam Valladares MD Unavailable [phone] Artie Mayorga MUSIC PUBLISHER Unavailable Erlin Pennington MD Primary Care Provider Encounter Details Date Type Department Care Team (Latest Contact Info) Description 07/23/2019 Transcribe Orders [facility] Phleb Emmett [address] [id number] Leydi Durham PA 10 [place] [address] Acute pancreatitis, unspecified complication status, unspecified pancreatitis [...] EST) WBC 8.02 4.00 - 11.00 K/uL [facility] Comment:Note Reference Range updates to all CBC and Differential results. RBC 4.64 3.72 - 5.30 M/uL [facility] HGB 14.8 10.6 - 15.5 g/dL [facility] Comment:Note updated Referen ce Ranges for all CBC and Differential results. HCT 43.3 32.0 - 45.0 % [facility] PLT 248 140 - 430 K/uL [facility] MCV 93.3 78.0 - 97.0 fL [facility] MCH 31.9 25.0 - 33.0 pg [facility] MCHC 34.2 32.0 - 36.0 g/dL [facility] RDW 12.6 11.0 - 16.0 % [facility] MPV 10.5 8.4 - 12.8 [facility] NRBC 0.00 0 /100 WBCs [facility] ABSOLUTE NRBC 0.00 0 K/uL [facility] Blood 07/23/2019 11:5 6 AM EST 07/23/2019 12:01 PM EST us Leydi TERRY LAB BLOOD BKR ORDERABLES Fi nal Result [address] [address] * (ABNORMAL) IgG subclasses (07/23/2019 11:56 AM EST) IGG 1 509 341 - 894 mg/dL [facility] MED/PATH [address] IGG 2 598 171 - 632 mg/dl [facility] [address] IGG 3 88.3 18.4 - 106.0 mg/dl [facility]PATH [address] IGG 4 212.0(H) 2.4 - 121.0 mg/dl [facility]PATH [address] TOTAL IGG 1,360 047 - 1,590 mg/dl [facility] Blood 07/23/2019 11:5 6 AM EST 07/23/2019 12:01 PM EST us Leydi TERRY LAB BLOOD ORDERABLES Final Result Performing Organization Address City/[facility]/ZIP Co de Phone Number [facility] LAB MED/[address] [place] [address] * Lipase (07/23/2019 11:56 AM EST) LIPASE 47 16 - 63 U/L [facility] Blood 07/23/2019 11:5 6 AM EST 07/23/2019 12:01 PM EST us Leydi TERRY LAB BLOOD BKR ORDERABLES Fi nal Result Performing Organization Address [facility] de Phone Number [address] [address] documented in this encounter Visit Diagnoses Diagnosis [...] documented as of this encounter Care Teams Copper Tapper Relationship Specialty Start Date End Date Erlin Pennington MD [address] [place] [address], [address] [place] [address] [email or web address] PCP - General 03/05/17 09/24/24 Marily Elkins NP [address] [place] [address] [email or web address] Historical LMR Provider 03/04/17 05/27/21 Iris Chamberlain MD [address] [facility], [address] [place] [address] Historical LMR Provider 03/04/17 05/27/21 Gilma Cornelius DO [address] [place] [address] Historical LMR Provider 03/04/17 2 Erlin Pennington MD [address] [place] [address], [address] [place] [address] [email or web address] Historical LMR Provider 03/04/17 5 Miriam Valladares MD [address] [place] [address] Historical LMR Provider 03/04/17 2 Artie Mayorga CNP [address] [place] [address], [address] [place] [address] [email or web address] Historical LMR Provider 03/04/17 documented as of this encounter Additional Source Comments The information contained in this document represents components of the legal health record. It is not the complete legal health record.[facility]
--- OUTSIDE RECORDS SUMMARY | 2025-05-18 11:33 | XMS_ITS | Encounter Summary ---
Author Organization [facility] Address [facility] [address] [address] Phone Care Team Providers Care Patient Services Specialist Name Role Phone Marily Elkins RADIO DISC JOCKEY Unavailable [phone] Iris Chamberlain MD Unavailable Gilma Cornelius DO Unavailable [phone] Erlin Pennington MD Unavailable [phone] Miriam Valladares MD Unavailable [phone] Artie Mayorga UTILIZATION REVIEW SPECIALIST Unavailable [phone] Erlin Pennington MD Primary Care Provider Encounter Details Date Type Department Care Team (Latest Contact Info) Description 01/28/2020 Transcribe Orders [facility] Phleb [facility] [address] [place], [place] [phone] Manjinder Staples MD [address] [address] [email or web address] Chronic pancreatitis, unspecified pancreatitis type [...] REACTIVE PROTEIN <0.3 0.0 - 4.0 mg/L [facility] Blood 01/28/2020 2:03 PM EDT 01/28/2020 2:07 PM EDT us Manjinder Staples MD LAB BLOOD BKR ORDERABLES Fin al Result Performing Organization Address City/State/[facility] Co de Phone Number [address] [address] * Comprehensive metabolic panel (01/28/2020 2:03 PM EDT) SODIUM 138 133 - 146 mmol/L [facility] POTASSIUM 4.3 3.3 - 5.1 mmol/L [facility] CHLORIDE 104 96 - 108 mmol/L [facility] CO2 24 21 - 35 mmol/L [facility] BUN 13 6 - 19 mg/dL [facility] CREATININE 0.70 0.5 - 1.5 mg/dL [facility] GLUCOSE 95 70 - 99 mg/dL [facility] ALBUMIN 4.3 3.9 - 4.8 g/dL [facility] TOTAL PROTEIN 7.1 6.5 - 8.0 g/dL [facility] CALCIUM 9.3 8.4 - 10.3 mg/dL [facility] ALKALINE PHOSPHATASE 50 39 - 117 U/L [facility] TOTAL BILIRUBIN 0.3 0.0 - 1.2 mg/dL [facility] AST 29 0 - 37 U/L [facility] ALT 13 0 - 40 U/L [facility] GLOBULIN 2.8 1 - 4.8 g/dL [facility] EGFR 111 >59 mL/min/1.7 3m2 [facility] Comment:Estimated glomerular filtration rate calculated using the CKD-EPI equation. ANION GAP 14 10 - 20 mmol/L [facility] Blood 01/28/2020 2:03 PM EDT 01/28/2020 2:07 PM EDT us Manjinder Staples MD LAB BLOOD BKR ORDERABLES Fin al Result Performing Organization Address City/[facility]/ZIP Co de Phone Number [address] [address] * CBC (01/28/2020 2:03 PM EDT) WBC 5.52 4.00 - 11.00 K/uL [facility] Comment:Note Reference Range updates to all CBC and Differential results. RBC 4.67 3.72 - 5.30 M/uL [facility] HGB 14.9 10.6 - 15.5 g/dL [facility] Comment:Note updated Referen ce Ranges for all CBC and Differential results. HCT 44.2 32.0 - 45.0 % [facility] PLT 252 140 - 430 K/uL [facility] MCV 94.6 78.0 - 97.0 fL [facility] MCH 31.9 25.0 - 33.0 pg [facility] MCHC 33.7 32.0 - 36.0 g/dL [facility] RDW 12.3 11.0 - 16.0 % [facility] MPV 10.6 8.4 - 12.8 fl [facility] NRBC 0.00 0 /100 WBCs [facility] ABSOLUTE NRBC 0.00 0 K/uL [facility] Blood 01/28/2020 2:03 PM EDT 01/28/2020 2:07 PM EDT us Manjinder Staples MD LAB BLOOD BKR ORDERABLES Fin al Result [address] [address] * Lipase (01/28/2020 2:03 PM EDT) LIPASE 57 16 - 63 U/L [facility] Blood 01/28/2020 2:03 PM EDT 01/28/2020 2:07 PM EDT us Manjinder Staples MD LAB BLOOD BKR ORDERABLES Fin al Result [address] [address] * (ABNORMAL) Amylase (01/28/2020 2:03 PM EDT) AMYLASE 104(H) 28 - 100 U/L [facility] Blood 01/28/2020 2:03 PM EDT 01/28/2020 2:07 PM EDT us Manjinder Staples MD LAB BLOOD BKR ORDERABLES Fin al Result Performing Organization Address [facility] Co de Phone Number [address] [address] documented in this encounter Visit Diagnoses Diagnosis [...] documented as of this encounter Care Teams Patient Services Specialist Relationship Specialty Start Date End Date Erlin Pennington MD [address] [place] [address], [address] [place] [address] PCP - General 03/05/17 09/24/24 Marily Elkins NP [address] [place] [address] Historical LMR Provider 03/04/17 05/27/21 Iris Chamberlain MD [address] [place] [address], [address] [place] [address] Historical LMR Provider 03/04/17 05/27/21 Gilma Cornelius DO [address] [place] [address] Historical LMR Provider 03/04/17 2 Erlin Pennington MD [address] [place] [address], [address] [place] [address] [email or web address] Historical LMR Provider 03/04/17 5 Miriam Valladares MD [address] [place] [address] Historical LMR Provider 03/04/17 2 Artie Mayorga CNP [address] [place] [address], [address] [place] [address] [email or web address] Historical LMR Provider 03/04/17 documented as of this encounter Additional Source Comments The information contained in this document represents components of the legal health record. It is not the complete legal health record.[facility]
== END 2025-05-18 09:11 ==
LOC: HO.NEURO 09:10
PROVIDERS: PCP Nurse Practitioner Family; Visit Provider Nurse Practitioner Family
DX: M25.571 Pain in right ankle and joints of right foot (principal); M25.572 Pain in left ankle and joints of left foot; M79.604 Pain in right leg; M79.605 Pain in left leg; M79.671 Pain in right foot; M79.672 Pain in left foot
CPT/HCPCS: 95886; 95913

== ENCOUNTER → 2025-05-18 09:14 | Outpatient (BNV) | payer OTHER, SELFPAY | PROVIDERS: PCP Nurse Practitioner Family; Visit Provider Psychiatry & Neurology Neurology | DX: M25.571 Pain in right ankle and joints of right foot (principal); M25.572 Pain in left ankle and joints of left foot | CPT/HCPCS: 95886; 95912 ==